=== PATIENT | male | born 1940 | race Caucasian/White ===

== ENCOUNTER → 2020-03-23 09:11 | Outpatient (BNVA) | payer OTHER, SELFPAY | PROVIDERS: PCP Physician Assistant; Visit Provider Family Medicine Adult Medicine | DX: M54.16 Radiculopathy, lumbar region (principal); Z79.891 Long term (current) use of opiate analgesic | CPT/HCPCS: 99212 ==

== ENCOUNTER → 2020-04-22 11:53 | Outpatient (BNVA) | payer OTHER, SELFPAY | PROVIDERS: Visit Provider Family Medicine Adult Medicine | DX: M54.16 Radiculopathy, lumbar region (principal) | CPT/HCPCS: Q3014 ==

== ENCOUNTER → 2020-04-27 10:35 | Outpatient (BNVA) | payer OTHER, SELFPAY | PROVIDERS: Visit Provider Family Medicine Adult Medicine | DX: M54.16 Radiculopathy, lumbar region (principal) | CPT/HCPCS: 99212 ==

== ENCOUNTER 2020-05-24 11:18 | Outpatient (REF) | payer OTHER, SELFPAY ==
[2020-05-24 11:53] LABS: Hemoglobin 12.7 g/dl (14.0-18.0); Mean Platelet Volume 10.9 fL (9.4-12.4); PLT CLUMP 1; Red Cell Distribution Width 12.3 % (11.0-16.0)
[2020-05-24 11:55] LABS: Hematocrit 40.4 % (42-52); Mean Corpuscular HGB Conc 31.4 g/dl (31.0-36.0); Mean Corpuscular Hemoglobin 29.3 pg (27.0-33.0); Mean Corpuscular Volume 93.3 fL (80-98); Platelet Count 105 X10*3/uL (160-400); Red Blood Count 4.33 X10*6/uL (4.60-5.80); White Blood Count 5.5 X10*3/uL (4.8-10.8)
[2020-05-24 12:11] LABS: Alanine Aminotransferase 28 U/L (0-40); Alkaline Phosphatase 70 U/L (39-117); Anion Gap 13 (12-20); Aspartate Amino Transferase 44 U/L (5-37); Bilirubin Total 0.8 mg/dL (0.0-1.0); Blood Urea Nitrogen 17 mg/dL (9-16); Calcium 9.2 mg/dL (8.4-10.2); Carbon Dioxide 30 mmol/L (22-29); Chloride 99 mmol/L (96-108); Cholesterol 145 mg/dL; Estimated Glomerular Filt Rate > 60; Glucose Fasting 222 mg/dL (60-99); HDL Cholesterol 51 mg/dL; LDL Cholesterol Calculated 50 mg/dl; Potassium 4.9 mmol/l (3.3-5.1); Sodium 137 mmol/L (135-145); Total Protein 7.5 g/dL (6.5-8.0); Triglycerides 224 mg/dL
[2020-05-24 12:33] LABS: Prostate Specific Antigen Scr 0.34 ng/mL (<0.05-4.0); TSH reflex Free T4 0.76 mIU/mL (0.32-4.0)
[2020-05-24 14:09] LABS: Creatinine Urine 53.89 mg/dL; Microalbum/Creatinine Ratio Ur 24.1 ug/mg cr
== END 2020-05-24 11:19 | disposition home or self-care (01) ==
LOC: HO.LAB 11:18
PROVIDERS: PCP Physician Assistant; Visit Provider Physician Assistant
DX: I10 Essential (primary) hypertension (principal); E11.9 Type 2 diabetes mellitus without complications; Z12.5 Encounter for screening for malignant neoplasm of prostate
CPT/HCPCS: 36415; 80053; 80061; 82043; 84153; 84443; 85027

== ENCOUNTER → 2020-06-10 10:09 | Outpatient (BNVA) | payer OTHER, SELFPAY | PROVIDERS: Visit Provider Family Medicine Adult Medicine | DX: M54.16 Radiculopathy, lumbar region (principal); Z79.891 Long term (current) use of opiate analgesic | CPT/HCPCS: 99211 ==

== ENCOUNTER → 2020-07-08 10:11 | Outpatient (BNVA) | payer OTHER, SELFPAY | PROVIDERS: Visit Provider Family Medicine Adult Medicine | DX: M54.16 Radiculopathy, lumbar region (principal); Z79.899 Other long term (current) drug therapy | CPT/HCPCS: 99212 ==

== ENCOUNTER → 2020-08-05 09:35 | Outpatient (BNVA) | payer OTHER, SELFPAY | PROVIDERS: PCP Physician Assistant; Visit Provider Family Medicine Adult Medicine | DX: M54.16 Radiculopathy, lumbar region (principal) | CPT/HCPCS: Q3014 ==

== ENCOUNTER 2020-09-09 09:43 | Outpatient (REF) | payer OTHER, SELFPAY | END 2020-09-09 09:44 | disposition home or self-care (01) | LOC: HO.LAB 09:43 | PROVIDERS: PCP Physician Assistant; Visit Provider Family Medicine Adult Medicine | DX: M54.16 Radiculopathy, lumbar region (principal) | CPT/HCPCS: Q3014 ==

== ENCOUNTER 2020-09-21 10:57 | Outpatient (REF) | payer MEDICARE, SELFPAY ==
[2020-09-21 12:18] LABS: Hematocrit 40.8 % (42-52); Mean Corpuscular HGB Conc 31.9 g/dl (31.0-36.0); Mean Corpuscular Hemoglobin 29.5 pg (27.0-33.0); Mean Corpuscular Volume 92.5 fL (80-98); Mean Platelet Volume 11.1 fL (9.4-12.4); Platelet Count 90 X10*3/uL (160-400); Red Blood Count 4.41 X10*6/uL (4.60-5.80); Red Cell Distribution Width 12.4 % (11.0-16.0); White Blood Count 5.2 X10*3/uL (4.8-10.8)
[2020-09-21 12:37] LABS: Alanine Aminotransferase 27 U/L (0-40); Alkaline Phosphatase 72 U/L (39-117); Anion Gap 13 (12-20); Aspartate Amino Transferase 39 U/L (5-37); Bilirubin Total 0.9 mg/dL (0.0-1.0); Blood Urea Nitrogen 26 mg/dL (9-16); Calcium 9.3 mg/dL (8.4-10.2); Carbon Dioxide 29 mmol/L (22-29); Chloride 99 mmol/L (96-108); Cholesterol 173 mg/dL; Estimated Glomerular Filt Rate > 60; Glucose Fasting 268 mg/dL (60-99); HDL Cholesterol 43 mg/dL; LDL Cholesterol Calculated 58 mg/dl; Potassium 4.3 mmol/L (3.3-5.1); Sodium 137 mmol/L (135-145); Total Protein 7.5 g/dL (6.5-8.0); Triglycerides 363 mg/dL
[2020-09-21 12:58] LABS: Prostate Specific Antigen Scr 0.46 ng/mL (<0.05-4.0); TSH reflex Free T4 0.56 uIU/mL (0.32-4.0)
[2020-09-21 13:12] LABS: Creatinine Urine 44.32 mg/dL
== END 2020-09-21 10:58 | disposition home or self-care (01) ==
LOC: HO.LAB 10:57
PROVIDERS: PCP Physician Assistant; Visit Provider Physician Assistant
DX: Z12.5 Encounter for screening for malignant neoplasm of prostate (principal); I10 Essential (primary) hypertension
CPT/HCPCS: 36415; 80053; 80061; 82043; 84153; 84443; 85027

== ENCOUNTER → 2020-10-08 10:46 | Outpatient (BNVA) | payer MEDICARE, SELFPAY | PROVIDERS: PCP Physician Assistant; Visit Provider Nurse Practitioner Family | DX: M19.012 Primary osteoarthritis, left shoulder (principal); M17.0 Bilateral primary osteoarthritis of knee; M54.41 Lumbago with sciatica, right side; G89.29 Other chronic pain | CPT/HCPCS: Q3014 ==

== ENCOUNTER 2020-10-12 08:41 | Outpatient (REF) | payer MEDICARE, SELFPAY ==
--- NOTE | ~2020-10-12 | XR_ITS ---
EXAMINATION: XR SHOULDER, LEFT CLINICAL INFORMATION: Left shoulder pain. COMPARISON: None TECHNIQUE: AP, scapular Y, and axillary views of the left shoulder. FINDINGS: No acute fracture or dislocation. Acromioclavicular joint space narrowing and marginal osteophytes. Mild glenohumeral joint space narrowing with marginal osteophytes. No osseous erosion. No abnormal soft tissue calcification. 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
== END 2020-10-12 08:42 | disposition home or self-care (01) ==
LOC: HO.HOSX 08:41
PROVIDERS: Visit Provider Orthopaedic Surgery
DX: M75.42 Impingement syndrome of left shoulder (principal)
CPT/HCPCS: 20610; 73030; 99202; J1040

== ENCOUNTER → 2020-11-02 13:35 | Outpatient (BNVA) | payer MEDICARE, SELFPAY | PROVIDERS: PCP Physician Assistant; Visit Provider Family Medicine Adult Medicine | DX: M54.16 Radiculopathy, lumbar region (principal) | CPT/HCPCS: 99212 ==

== ENCOUNTER 2020-11-23 11:04 | Outpatient (REF) | payer MEDICARE, SELFPAY ==
--- NOTE | ~2020-11-23 | XR_ITS ---
EXAMINATION: LUMBAR SPINE, BILATERAL KNEE. CLINICAL INFORMATION: Pain. COMPARISON: None TECHNIQUE: Lumbar spine 5 views. 4 views each knee. FINDINGS: Lumbar spine: There is normal lumbar lordosis. The vertebral heights, alignment and disc heights are normal. No visible acute fracture, dislocation or lytic process seen. There is no pars defect either. There is mild right L3-for L4/L5 facet arthropathy. The soft tissues are normal. Right knee: The tricompartment joint space is maintained normal. No visible acute fracture, dislocation or dislocation seen. No abnormal joint effusion. The soft tissues are normal. Left knee: The tricompartment joint space is normal. No visible acute fracture, dislocation or subluxation seen. No bony erosive changes. No abnormal joint effusion. XR/XR lumbar spine 4V min IMPRESSION: Mild right L3-L4 and L4/L5 facet joint arthropathy. No visible acute fracture, dislocation or lytic process. No pars defect. Unremarkable bilateral knee exam.
--- NOTE | ~2020-11-23 | XR_ITS ---
EXAMINATION: LUMBAR SPINE, BILATERAL KNEE. CLINICAL INFORMATION: Pain. COMPARISON: None TECHNIQUE: Lumbar spine 5 views. 4 views each knee. FINDINGS: Lumbar spine: There is normal lumbar lordosis. The vertebral heights, alignment and disc heights are normal. No visible acute fracture, dislocation or lytic process seen. There is no pars defect either. There is mild right L3-for L4/L5 facet arthropathy. The soft tissues are normal. Right knee: The tricompartment joint space is maintained normal. No visible acute fracture, dislocation or dislocation seen. No abnormal joint effusion. The soft tissues are normal. Left knee: The tricompartment joint space is normal. No visible acute fracture, dislocation or subluxation seen. No bony erosive changes. No abnormal joint effusion. XR/XR knee RT 4V IMPRESSION: Mild right L3-L4 and L4/L5 facet joint arthropathy. No visible acute fracture, dislocation or lytic process. No pars defect. Unremarkable bilateral knee exam.
--- NOTE | ~2020-11-23 | XR_ITS ---
EXAMINATION: LUMBAR SPINE, BILATERAL KNEE. CLINICAL INFORMATION: Pain. COMPARISON: None TECHNIQUE: Lumbar spine 5 views. 4 views each knee. FINDINGS: Lumbar spine: There is normal lumbar lordosis. The vertebral heights, alignment and disc heights are normal. No visible acute fracture, dislocation or lytic process seen. There is no pars defect either. There is mild right L3-for L4/L5 facet arthropathy. The soft tissues are normal. Right knee: The tricompartment joint space is maintained normal. No visible acute fracture, dislocation or dislocation seen. No abnormal joint effusion. The soft tissues are normal. Left knee: The tricompartment joint space is normal. No visible acute fracture, dislocation or subluxation seen. No bony erosive changes. No abnormal joint effusion. XR/XR knee LT 4V IMPRESSION: Mild right L3-L4 and L4/L5 facet joint arthropathy. No visible acute fracture, dislocation or lytic process. No pars defect. Unremarkable bilateral knee exam.
== END 2020-11-23 11:05 | disposition home or self-care (01) ==
LOC: HO.XRAY 11:04
PROVIDERS: PCP Physician Assistant; Visit Provider Family Medicine Adult Medicine
DX: M54.16 Radiculopathy, lumbar region (principal); M17.0 Bilateral primary osteoarthritis of knee
CPT/HCPCS: 72110; 73564

== ENCOUNTER → 2020-12-02 10:31 | Outpatient (BNVA) | payer MEDICARE, SELFPAY | PROVIDERS: PCP Physician Assistant; Visit Provider Family Medicine Adult Medicine | DX: M54.16 Radiculopathy, lumbar region (principal) | CPT/HCPCS: Q3014 ==

== ENCOUNTER → 2021-01-07 10:21 | Outpatient (BNVA) | payer MEDICARE, SELFPAY | PROVIDERS: PCP Physician Assistant; Visit Provider Nurse Practitioner Family | DX: M17.0 Bilateral primary osteoarthritis of knee (principal); M19.012 Primary osteoarthritis, left shoulder; M54.41 Lumbago with sciatica, right side; G89.29 Other chronic pain | CPT/HCPCS: 99212 ==

== ENCOUNTER → 2021-01-27 12:57 | Outpatient (BNVA) | payer MEDICARE, SELFPAY | PROVIDERS: PCP Physician Assistant; Visit Provider Family Medicine Adult Medicine | DX: Z51.81 Encounter for therapeutic drug level monitoring (principal); M17.0 Bilateral primary osteoarthritis of knee; M54.16 Radiculopathy, lumbar region | CPT/HCPCS: 99212 ==

== ENCOUNTER 2021-02-02 06:06 | Outpatient (REF) | payer MEDICARE, SELFPAY | END 2021-02-02 06:07 | disposition home or self-care (01) | LOC: HO.RADIR 06:06 | PROVIDERS: Visit Provider Internal Medicine | DX: Z13.89 Encounter for screening for other disorder (principal) ==

== ENCOUNTER → 2021-02-22 10:37 | Outpatient (BNVA) | payer MEDICARE, SELFPAY | PROVIDERS: Visit Provider Family Medicine Adult Medicine | DX: Z51.81 Encounter for therapeutic drug level monitoring (principal); M54.16 Radiculopathy, lumbar region; M17.0 Bilateral primary osteoarthritis of knee | CPT/HCPCS: 99212 ==

== ENCOUNTER → 2021-03-22 10:35 | Outpatient (BNVA) | payer MEDICARE, SELFPAY | PROVIDERS: Visit Provider Family Medicine Adult Medicine | DX: M54.16 Radiculopathy, lumbar region (principal); M17.0 Bilateral primary osteoarthritis of knee; E11.9 Type 2 diabetes mellitus without complications; I10 Essential (primary) hypertension; E66.01 Morbid (severe) obesity due to excess calories; Z88.7 Allergy status to serum and vaccine; Z88.8 Allergy status to other drugs, medicaments and biological substances; Z79.4 Long term (current) use of insulin; Z79.84 Long term (current) use of oral hypoglycemic drugs; Z79.899 Other long term (current) drug therapy | CPT/HCPCS: 99212 ==

== ENCOUNTER 2021-04-18 07:52 | Outpatient (RCR) | payer MEDICARE, SELFPAY | END 2021-05-24 15:00 | disposition home or self-care (01) | LOC: HO.WCC 07:52 | PROVIDERS: PCP Physician Assistant; Visit Provider Physician Assistant | DX: T25.221A Burn of second degree of right foot, initial encounter (principal); T31.0 Burns involving less than 10% of body surface; E11.9 Type 2 diabetes mellitus without complications; I10 Essential (primary) hypertension; L53.9 Erythematous condition, unspecified; Z87.891 Personal history of nicotine dependence | CPT/HCPCS: 11042; 16020; 99213; 99214 ==

== ENCOUNTER → 2021-04-25 10:34 | Outpatient (BNVA) | payer MEDICARE, SELFPAY | PROVIDERS: PCP Physician Assistant; Visit Provider Nurse Practitioner Family | DX: Z51.81 Encounter for therapeutic drug level monitoring (principal); F11.20 Opioid dependence, uncomplicated; M17.0 Bilateral primary osteoarthritis of knee; M19.012 Primary osteoarthritis, left shoulder; M54.16 Radiculopathy, lumbar region | CPT/HCPCS: 99212 ==

== ENCOUNTER → 2021-05-12 11:10 | Outpatient (REF) | payer MEDICARE, SELFPAY ==
--- NOTE | 2021-05-12 11:19 | ECG_ITS ---
Test Reason : F11.90 Blood Pressure : / mmHG Vent. 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
== END ==
LOC: HO.CARD 11:10
PROVIDERS: PCP Physician Assistant; Visit Provider Nurse Practitioner Family
DX: F11.90 Opioid use, unspecified, uncomplicated (principal)
CPT/HCPCS: 93005

== ENCOUNTER 2021-05-24 15:43 | Inpatient (IN) | payer MEDICARE, SELFPAY ==
--- NOTE | ~2021-05-24 | XR_ITS ---
EXAMINATION: 1. CHEST X-RAY 2. X-RAYS THORACIC SPINE CLINICAL INFORMATION: Hypoxic. Covid. Thoracic pain after fall. COMPARISON: Chest x-ray 05/30/2019 TECHNIQUE: Frontal view of the chest and frontal view of the thoracic spine were obtained. FINDINGS: The cardiac silhouette is enlarged. Atherosclerotic disease of the aortic arch. Hypoinflated lungs. Patchy bilateral airspace disease, particularly within the lower lobes. No gross lobar consolidation identified. No large pleural effusion. No pneumothorax. Old healed left posterior rib fractures. AP view of the thoracic spine demonstrates mild dextroscoliosis centered at T8. Thoracic vertebral body heights are maintained. Disc spaces appear well-maintained on frontal imaging. Small osteophytes are noted throughout the mid and lower thoracic spine. XR/XR thoracic spine 1V IMPRESSION: -Patchy bilateral airspace disease, most consistent with provided history of Covid pneumonia. -Mild degenerative changes of the thoracic spine without gross compression deformity.
--- NOTE | ~2021-05-24 | XR_ITS ---
EXAMINATION: XR CHEST CLINICAL INFORMATION: SOB COMPARISON: Chest 05/24/2021 TECHNIQUE: Frontal view of the chest was obtained. FINDINGS: The lungs are hypoexpanded bilateral patchy opacities in both lower lobes likely infiltrate or atelectasis. Upper lungs are clear. The heart size is mildly enlarged. The pulmonary vascularity is normal. No gross bony abnormality seen. XR/XR chest 1V IMPRESSION: Bibasilar patchy opacities in both lungs without infiltrate or atelectasis.
--- NOTE | ~2021-05-24 | XR_ITS ---
EXAMINATION: XR CHEST CLINICAL INFORMATION: Reassess Covid pneumonia COMPARISON: Multiple previous chest imaging studies with the chest x-ray of 06/09/2021. Chest CT of 05/24/2021 TECHNIQUE: Frontal view of the chest was obtained. FINDINGS: Compared to previous x-ray of 06/09/2021 there does appear to be mild interval improvement in the hazy groundglass and patchy airspace opacities in the bilateral mid and lower lung zones. No definite new airspace opacities are noted. No evidence of pneumothorax or changes of overt pulmonary edema. No significant pleural effusions. Cardiomediastinal silhouette is unchanged. Aortic arch calcifications. No acute osseous abnormality. XR/XR chest 1V IMPRESSION: Mild interval improvement in the groundglass and patchy airspace opacities in the bilateral lungs compared to previous study of 06/09/2021 with persistent changes. There appears to be greater improvement when compared to previous x-ray of 05/24/2021. No definite new airspace opacities.
--- NOTE | ~2021-05-24 | XR_ITS ---
EXAMINATION: XR CHEST CLINICAL INFORMATION: Hypoxia COMPARISON: Previous chest x-ray most recent 06/11/2021 TECHNIQUE: Frontal view of the chest was obtained. FINDINGS: The cardiac and mediastinal contours are stable. There is bilateral perihilar and lower lobe airspace disease. This appears slightly increased on the left compared to 06/11/2021 exam. Differential would include pulmonary edema and pneumonia. There is no significant pleural effusion. There is a new lucency projecting over the lateral right upper lung measuring maximum 6 mm in transverse dimension. This may represent a skinfold. Follow-up end expiration chest x-ray to exclude pneumothorax should be considered if clinically indicated. There are old left rib fractures. There are degenerative changes of the spine. XR/XR chest 1V IMPRESSION: Perihilar and bibasilar airspace disease, slightly increased on the left compared to most recent exam. Differential would include pulmonary edema and pneumonia. Peripheral lucency in the right upper lobe probably representing a skinfold. Follow-up end expiration chest x-ray to exclude pneumothorax should be considered if clinically indicated. Findings will be communicated by the [place] work flow flap lining binder Melyssa Cortez.
--- NOTE | ~2021-05-24 | XR_ITS ---
EXAMINATION: 1. CHEST X-RAY 2. X-RAYS THORACIC SPINE CLINICAL INFORMATION: Hypoxic. Covid. Thoracic pain after fall. COMPARISON: Chest x-ray 05/30/2019 TECHNIQUE: Frontal view of the chest and frontal view of the thoracic spine were obtained. FINDINGS: The cardiac silhouette is enlarged. Atherosclerotic disease of the aortic arch. Hypoinflated lungs. Patchy bilateral airspace disease, particularly within the lower lobes. No gross lobar consolidation identified. No large pleural effusion. No pneumothorax. Old healed left posterior rib fractures. AP view of the thoracic spine demonstrates mild dextroscoliosis centered at T8. Thoracic vertebral body heights are maintained. Disc spaces appear well-maintained on frontal imaging. Small osteophytes are noted throughout the mid and lower thoracic spine. XR/XR chest 1V IMPRESSION: -Patchy bilateral airspace disease, most consistent with provided history of Covid pneumonia. -Mild degenerative changes of the thoracic spine without gross compression deformity.
--- NOTE | ~2021-05-24 | CT_ITS ---
EXAMINATION: CT ANGIOGRAM OF THE CHEST WITH AND WITHOUT CONTRAST (CT PULMONARY ANGIOGRAM FOR PE) CLINICAL INFORMATION: Covid positive. Rule out PE. COMPARISON: Chest x-ray earlier this evening TECHNIQUE: Prior to contrast administration, noncontrast localization images were obtained. Subsequently, multidetector volumetric imaging was performed from the thoracic inlet to below the diaphragms following the administration of 69 mL Omnipaque 350 intravenous contrast. No contrast reaction reported Sagittal, coronal, and MIP oblique sagittal reformatted images were obtained on the CT workstation, uploaded to PACS, and reviewed. This CT examination was performed using dose optimization techniques as appropriate, variously including the following: *Automated exposure control *Adjustment of mA and/or kV according to patient size (this includes techniques or standardized protocols for targeted exams where dose is matched to indication/reason for exam; i.e. extremities or head) *Use of iterative reconstruction technique Total exam dose-length product 423 mGy-cm FINDINGS: The heart is enlarged. Coronary artery calcifications are present. There is no pericardial effusion. No main or segmental pulmonary emboli. Evaluation of subsegmental pulmonary arteries is suboptimal given background of airspace disease, however, no gross subsegmental pulmonary emboli appreciated. Normal caliber thoracic aorta. No gross mediastinal lymphadenopathy. No enlarged axillary lymph nodes. Central airways are patent although some mild peripheral mucous plugging is noted. Extensive bilateral predominantly pleural-based groundglass opacities are noted diffusely throughout both lungs. I do not appreciate any gross lobar consolidation. No pleural effusion or pneumothorax identified. Evaluation for pulmonary nodules is suboptimal given background of airspace disease, however, no gross large pulmonary mass is identified. Visualized portion of the upper abdomen demonstrate a cirrhotic liver appearance. Mild to moderate diffuse degenerative changes of the spine. Subacute and old left-sided rib fracture, some of which are incompletely healed. CT/CT angio chest PE protocol IMPRESSION: 1. No pulmonary embolism. 2. Extensive bilateral airspace disease consistent with Covid pneumonia. 3. Cirrhotic appearance of the liver VTE: negative
--- NOTE | ~2021-05-24 | XR_ITS ---
EXAMINATION: XR CHEST CLINICAL INFORMATION: Rule out pneumothorax COMPARISON: Previous chest x-rays, most recent from earlier the same day TECHNIQUE: Frontal view of the chest was obtained. FINDINGS: The cardiac and mediastinal contours are stable. The lung volumes are low. There is bilateral diffuse airspace disease not appreciably changed. This is greatest at the left lung base. There is no pleural effusion or pneumothorax. There are old left-sided rib fractures. There are degenerative changes of the spine. XR/XR chest 1V IMPRESSION: Low lung volumes and bilateral diffuse airspace disease. No pneumothorax seen.
--- NOTE | ~2021-05-24 | XR_ITS ---
EXAMINATION: XR CHEST CLINICAL INFORMATION: 80-year-old male with shortness of breath. COMPARISON: Chest x-ray 06/05/2021 and CTA chest 05/24/2021 TECHNIQUE: Frontal view of the chest was obtained. FINDINGS: Cardiac silhouette is unchanged. Atherosclerotic disease of the aortic arch. The lungs are adequately aerated. Patchy bilateral airspace disease appears stable in prominence from imaging 5 days ago. No gross lobar consolidation identified. No pleural effusion. Old healed rib fractures. XR/XR chest 1V IMPRESSION: Stable patchy bilateral airspace disease consistent with history of Covid pneumonia.
[2021-05-24 15:58] VITALS: BP 107/55; PULSE 57; RESP 17; TEMP 36.5; O2SAT 87; BMI 28.3
--- NOTE | 2021-05-24 16:02 | ECG_ITS ---
Test Reason : SHORTNESS OF BREATH Blood Pressure : / mmHG Vent. 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
--- NOTE | 2021-05-24 16:08 | ED.SOB ---
HPI - SOB/Dyspnea General Chief Complaint: Dyspnea Stated Complaint: SOB/COVID Time Seen by Provider: 05/24/21 15:53 Source: patient and EMS Mode of arrival: EMS Limitations: no limitations History of Present Illness HPI Narrative: Patient comes to the emergency room complaining of shortness of breath. Patient reports that he tested positive for COVID-19 2 weeks ago. However, over the last few days, the shortness of breath has gradually become worse. Patient also states that since the morning, he has had 4 falls. Patient is poor historian, does not know if he passed out, does not know if they were mechanical falls. Patient states that he did not lose consciousness, did not hit his head, denies being on blood thinners. He states that he did not receive any of the COVID vaccines. Per EMS, when they arrived to the patient's residence, the patient's oxygen saturation was in the mid 60s on room air. Patient was put on non-rebreather at 15 L. patient denies chest pain, only complaining of shortness of breath. Patient states that he has mild thoracic spine pain from the falls. According to EMS, the home nurse reported that the patient recently finished taking a course of azithromycin. Related Data Home Medications Medication Instructions Recorded Confirmed cholecalciferol (vitamin D3) 25 25 mcg PO DAILY 05/24/21 05/24/21 mcg (1,000 unit) tablet (Vitamin D3) gabapentin 300 mg capsule 300 mg PO TID 05/24/21 05/24/21 hydrocodone 10 mg-acetaminophen 1 tab PO QID PRN 05/24/21 05/24/21 325 mg tablet metformin 1,000 mg tablet 1,000 mg PO BIDWM 05/24/21 05/24/21 silver sulfadiazine 1 % topical 1 appl TOPICAL TID 05/24/21 05/24/21 cream Previous Rx's Medication Instructions Recorded multivitamin 1 tab PO DAILY 90 Days #90 tab 09/01/20 pen needle, diabetic 32 gauge x #100 ea 11/22/20 (BD Agueda 2nd Gen Pen Needle) tamsulosin 0.4 mg capsule 0.4 mg PO DAILY 90 Days #90 cap 12/07/20 hydrochlorothiazide 25 mg tablet 25 mg PO DAILY #90 tab 01/13/21 blood sugar diagnostic (Yaritzayle #100 ea 01/24/21 Test) fluoxetine 20 mg capsule 20 mg PO QAM #90 cap 03/01/21 clonazepam 1 mg tablet 1 mg PO BID 30 Days #60 tab 03/08/21 metoprolol succinate 25 mg 25 mg PO DAILY 90 Days #90 tab 03/21/21 tablet,extended release 24 hr clonidine HCl 0.1 mg tablet 0.1 mg PO BID 30 Days #60 tab 04/04/21 losartan 100 mg tablet 100 mg PO DAILY #90 tab 04/14/21 pravastatin 40 mg tablet 40 mg PO DAILY #90 tab 04/18/21 tizanidine 2 mg tablet 2 mg PO BID PRN 90 Days #180 tab 04/18/21 buprenorphine 15 mcg/hour weekly 1 patch TRANSDERMAL Q7D 28 Days #4 04/25/21 transdermal patch (Butrans) ea insulin degludec 200 unit/mL (3 35 unit (0.175 mL) SUBCUT DAILY 30 04/25/21 mL) subcutaneous pen ( Days #9 ml FlexTouch U-200 insulin) empagliflozin 25 mg tablet 25 mg PO DAILY #90 tab 04/26/21 (Jardiance) prednisone 10 mg tablet 10 mg PO DAILY 6 Days #12 tab 05/19/21 dexamethasone 2 mg tablet 2 mg PO DAILY 7 Days #7 tab 05/24/21 Allergies Allergy/AdvReac Type Severity Reaction Status Date / Time canagliflozin [From [facility]] Allergy Unknown RASH Verified 04/25/21 14:28 zoster vaccine live Allergy Unknown pruritis Verified 04/25/21 14:28 [Zostavax (PF)] Review of Systems Review of Systems: Constitutional : No Weight loss, No Fever, No Chills, No Night Sweats, No Fatigue, No Malaise ENT/Mouth : No Hearing loss, No Ear Pain, No Nasal Congestion, No Sinus Pain, No Hoarseness, No sore throat, No Rhinorrhea, No Swallowing Difficulty Eyes: No Eye Pain, No Swelling, No Redness, No Foreign Body, No Discharge, No Vision Changes Cardiovascular : No Chest Pain, No SOB, No Dyspnea on Exertion, No Orthopnea, No Edema, No Palpitations Respiratory : Complaining of cough, shortness of breath Gastrointestinal : No Nausea, No Vomiting, No Diarrhea, No Constipation, No abdominal Pain, No Hematochezia, No Melena Genitourinary : no irregular bleeding, No Dysuria, No Urinary Frequency, No Hematuria, No Urinary Incontinence, No Urgency, No Flank Pain, No Urinary Flow Changes, No Hesitancy Musculoskeletal : Complaining of back pain in the thoracic area, complaining of chronic lower extremity pain Skin : No Skin Lesions, No rash Neuro : No Weakness, No Numbness, No Paresthesias, complaining of a fall, unclear if patient had loss of consciousness, no headache Psych : No Anxiety/Panic, No Depression, No SI/HI/AH/VH, No Social Issues, Heme/Lymph: No Bruising, No Bleeding,No Lymphadenopathy Endocrine : No Polyuria, No Polydipsia, No Temperature Intolerance [facility] Past Medical History Medical History Arthritis of left knee Arthritis of right knee HTN (hypertension) Right lumbar radiculopathy Surgical History History of inguinal hernia repair Family History Family History Mother Hypertension Father No problems noted. Family/Other Diabetes Sister Alzheimers disease Brother Liver disease Brother Alcohol abuse Social History Social History (Updated 10/12/20 @ 10:08 by CARRIE Cohen) Alcohol intake: never Patient Tobacco Use Status: Never used Tobacco Advance Directives: No Advance Directives Information Provided: No Current occupational status: retired and disabled Current occupation: rt handed Physical Exam Vital Signs: Vital Signs: Last Vital Signs Temp 97.9 F 05/24/21 21:12 Pulse 56 05/24/21 21:12 Resp 14 05/24/21 21:12 BP 134/77 05/24/21 21:12 Pulse Ox 93 05/24/21 21:12 BMI result Body Mass Index 28.3 Const: Other: Appearance: Alert. Oriented X3. No acute distress. Eyes: Pupils equal, round and reactive to light. ENT: Pharynx normal. Neck: Normal inspection. Neck supple. No lymph nodes noted. No crepitus CVS: Normal heart rate and rhythm. Pulses normal. Normal S1 and S2 Respiratory: Patient is and a non-rebreather, bibasilar crackles Abdomen: Soft and nontender. No rigidity. No distention. Skin: Skin warm and dry. Normal skin color. Normal skin turgor. Extremities: No lower extremity edema. No Lacerations. No Rash Neuro: Oriented X 3. No motor deficit. No sensory deficit. Moving all extermities. No slurred speech. Course Course Course Narrative: Patient's oxygen saturation is barely 90-91% on 15 L. patient received 1 L of IV fluids, 1 dose of IV dexamethasone. No antibiotics yet. All of the labs and imaging pending. As respiratory therapy to start the patient on high-flow CT scan for PE study does not show a pulmonary embolism. Lactic acid within normal limits. At this time, sepsis is not suspected Patient remains stable on high-flow. Oxygen saturation 92% I discussed the patient with Dr. Muhammad, patient being admitted MDM - SOB/Dyspnea Lab Data Result diagrams: 05/24/21 16:42 05/24/21 16:42 Labs: Lab Results 05/24/21 05/24/21 05/24/21 Range/Units 16:42 16:42 16:42 WBC 5.4 (4.8-10.8) X10*3/uL RBC 4.16 L (4.60-5.80) X10*6/uL Hgb 12.2 L (14.0-18.0) g/dl Hct 38.6 L (42.0-52.0) % MCV 92.8 (80.0-98.0) fL MCH 29.3 (27.0-33.0) pg MCHC 31.6 (31.0-36.0) g/dl RDW 12.7 (11.0-16.0) % Plt Count 69 L (160-400) X10*3/uL MPV 12.1 (9.4-12.4) fL Immature Gran % (Auto) 0.4 (0.0-0.4) % Neut % (Auto) 80.1 H (45-73) % Lymph % (Auto) 13.4 L (20-40) % Roosevelt % (Auto) 6.1 (2-11) % Eos % (Auto) 0.0 (0-4) % Baso % (Auto) 0.0 (0-2) % Lymph # (Auto) 0.7 L (1.2-4.9) X10*3/uL Roosevelt # (Auto) 0.3 (0.1-1.2) X10*3/uL Eos # (Auto) 0.0 (0.0-0.4) X10*3/uL Baso # (Auto) 0.0 (0.0-0.2) X10*3/uL Abs Immat Gran (auto) 0.02 (0.00-0.03) X10*3/uL Absolute Neuts (auto) 4.3 (2.0-8.3) x10*3/uL Absolute Nucleated RBC 0.000 (0.0-0.012) X10*3/uL Nucleated RBC % (auto) 0.0 (0.0-0.2) /100WBC D-Dimer High Sensitivty NG/ML Sodium 139 (135-145) mmol/L Potassium 4.4 (3.3-5.1) mmol/L Chloride 102 (96-108) mmol/L Carbon Dioxide 28 (22-29) mmol/L Anion Gap 13 (12-20) BUN 52 H (9-16) mg/dL Creatinine 1.27 (0.5-1.4) mg/dL Estim Creat Clear Calc 51.5 Estimated GFR 55 Random Glucose 264 H (60-115) mg/dL Lactic Acid 1.7 (0.5-2.0) mmol/L Calcium 8.5 D (8.4-10.2) mg/dL Total Bilirubin 2.0 H (0.0-1.0) mg/dL Direct Bilirubin 1.1 H (0.0-0.5) mg/dL AST 72 H (5-37) U/L ALT 40 (0-40) U/L Alkaline Phosphatase 58 (39-117) U/L Troponin I High Sens (<3.5-35.0) ng/L B-Natriuretic Peptide (<100) pg/mL Total Protein 7.0 (6.5-8.0) g/dL Albumin 3.2 L (3.5-5.0) g/dL COVID-19 (RONNIE) (Negative) COVID-19 Clin Com 05/24/21 05/24/21 05/24/21 Range/Units 16:42 16:42 16:42 WBC (4.8-10.8) X10*3/uL RBC (4.60-5.80) X10*6/uL Hgb (14.0-18.0) g/dl Hct (42.0-52.0) % MCV (80.0-98.0) fL MCH (27.0-33.0) pg MCHC (31.0-36.0) g/dl RDW (11.0-16.0) % Plt Count (160-400) X10*3/uL MPV (9.4-12.4) fL Immature Gran % (Auto) (0.0-0.4) % Neut % (Auto) (45-73) % Lymph % (Auto) (20-40) % Roosevelt % (Auto) (2-11) % Eos % (Auto) (0-4) % Baso % (Auto) (0-2) % Lymph # (Auto) (1.2-4.9) X10*3/uL Roosevelt # (Auto) (0.1-1.2) X10*3/uL Eos # (Auto) (0.0-0.4) X10*3/uL Baso # (Auto) (0.0-0.2) X10*3/uL Abs Immat Gran (auto) (0.00-0.03) X10*3/uL Absolute Neuts (auto) (2.0-8.3) x10*3/uL Absolute Nucleated RBC (0.0-0.012) X10*3/uL Nucleated RBC % (auto) (0.0-0.2) /100WBC D-Dimer High Sensitivty 381 NG/ML Sodium (135-145) mmol/L Potassium (3.3-5.1) mmol/L Chloride (96-108) mmol/L Carbon Dioxide (22-29) mmol/L Anion Gap (12-20) BUN (9-16) mg/dL Creatinine (0.5-1.4) mg/dL Estim Creat Clear Calc Estimated GFR Random Glucose (60-115) mg/dL Lactic Acid (0.5-2.0) mmol/L Calcium (8.4-10.2) mg/dL Total Bilirubin (0.0-1.0) mg/dL Direct Bilirubin (0.0-0.5) mg/dL AST (5-37) U/L ALT (0-40) U/L Alkaline Phosphatase (39-117) U/L Troponin I High Sens 19.8 (<3.5-35.0) ng/L B-Natriuretic Peptide 74 (<100) pg/mL Total Protein (6.5-8.0) g/dL Albumin (3.5-5.0) g/dL COVID-19 (RONNIE) Positive A (Negative) COVID-19 Clin Com See Note Imaging Data CTA for PE: Radiologist's impression: FINDINGS: The heart is enlarged.? Coronary artery calcifications are present. There is no pericardial effusion. No main or segmental pulmonary emboli. Evaluation of subsegmental pulmonary arteries is suboptimal given background of airspace disease, however, no gross subsegmental pulmonary emboli appreciated. Normal caliber thoracic aorta. No gross mediastinal lymphadenopathy. No enlarged axillary lymph nodes. Central airways are patent although some mild peripheral mucous plugging is noted. Extensive bilateral predominantly pleural-based groundglass opacities are noted diffusely throughout both lungs. I do not appreciate any gross lobar consolidation. No pleural effusion or pneumothorax identified. Evaluation for pulmonary nodules is suboptimal given background of airspace disease, however, no gross large pulmonary mass is identified. Visualized portion of the upper abdomen demonstrate a cirrhotic liver appearance. Mild to moderate diffuse degenerative changes of the spine. Subacute and old left-sided rib fracture, some of which are incompletely healed. CT/CT angio chest PE protocol IMPRESSION: 1.? No pulmonary embolism. 2.? Extensive bilateral airspace disease consistent with Covid pneumonia. 3.? Cirrhotic appearance of the liver ? VTE: negative Thoracic spine x-ray: Radiologist's impression: FINDINGS: The cardiac silhouette is enlarged. Atherosclerotic disease of the aortic arch. Hypoinflated lungs. Patchy bilateral airspace disease, particularly within the lower lobes. No gross lobar consolidation identified. No large pleural effusion. No pneumothorax. Old healed left posterior rib fractures. AP view of the thoracic spine demonstrates mild dextroscoliosis centered at T8. Thoracic vertebral body heights are maintained. Disc spaces appear well-maintained on frontal imaging. Small osteophytes are noted throughout the mid and lower thoracic spine. ? XR/XR thoracic spine 1V IMPRESSION: -Patchy bilateral airspace disease, most consistent with provided history of Covid pneumonia. -Mild degenerative changes of the thoracic spine without gross compression deformity.? Discharge Plan Discharge Clinical Impression: COVID-19, Respiratory failure Patient Disposition: Admitted As Inpatient Prescriptions: No Action multivitamin Tablet 1 tab PO DAILY 90 Days Qty: 90 RF: 3 (DME) pen needle, diabetic [BD Agueda 2nd Gen Pen Needle] 32 gauge x 5/32 needle See Rx Instructions .ROUTE .MEDSUPPLY Qty: 100 RF: 3 tamsulosin 0.4 mg capsule 0.4 mg PO DAILY 90 Days Qty: 90 RF: 2 hydrochlorothiazide 25 mg tablet 25 mg PO DAILY Qty: 90 RF: 2 (DME) FreeStyle Test Strip See Rx Instructions .Route Qty: 100 RF: 3 fluoxetine 20 mg capsule 20 mg PO QAM Qty: 90 RF: 2 clonazepam 1 mg tablet 1 mg PO BID 30 Days Qty: 60 RF: 2 metoprolol succinate 25 mg tablet extended release 24 hr 25 mg PO DAILY 90 Days Qty: 90 RF: 1 clonidine HCl 0.1 mg tablet 0.1 mg PO BID 30 Days Qty: 60 RF: 0 losartan 100 mg tablet 100 mg PO DAILY Qty: 90 RF: 2 tizanidine 2 mg tablet 2 mg PO BID PRN (Reason: for muscle spasm) 90 Days Qty: 180 RF: 1 pravastatin 40 mg tablet 40 mg PO DAILY Qty: 90 RF: 3 Tresiba FlexTouch U-200 200 unit/mL (3 mL) insulin pen 35 unit subcut DAILY 30 Days Qty: 9 RF: 2 Jardiance 25 mg tablet 25 mg PO DAILY Qty: 90 RF: 2 prednisone 10 mg tablet 10 mg PO DAILY 6 Days Qty: 12 RF: 0 dexamethasone 2 mg tablet 2 mg PO DAILY 7 Days Qty: 7 RF: 0 silver sulfadiazine 1 % cream 1 appl topical TID RF: 0 hydrocodone-acetaminophen 10-325 mg tablet 1 tab PO QID PRN (Reason: Pain (Scale Score 7-10)) RF: 0 cholecalciferol (vitamin D3) [Vitamin D3] 25 mcg (1,000 unit) Tablet 25 mcg PO DAILY RF: 0 metformin 1,000 mg tablet 1,000 mg PO BIDWM RF: 0 gabapentin 300 mg capsule 300 mg PO TID RF: 0 buprenorphine [Butrans] 15 mcg/hour patch weekly 1 patch transdermal Q7D 28 Days Qty: 4 RF: 0
--- NOTE | 2021-05-24 16:15 | PC.NURSE ---
attempt at reducing to a venti mask at 55% -pt dropped his 02 85%, placed back on nrb 100%
[2021-05-24 16:36] VITALS: PULSE 56; RESP 18; O2SAT 95
[2021-05-24] MEDS: 0.9 % Sodium Chloride 1,000 ML 999 ML IVCONT (16:40)
[2021-05-24] MEDS: dexAMETHasone sod phosphate 4 MG/ML VIAL 6 MG IVPUSH (16:41)
[2021-05-24 16:49] LABS: MANUAL DIFF FLAG NO
[2021-05-24 16:59] LABS: D Dimer High Sensitivity 381 NG/ML; Lactic Acid 1.7 mmol/L (0.5-2.0)
[2021-05-24 17:00] LABS: Hematocrit 38.6 % (42.0-52.0); Hemoglobin 12.2 g/dl (14.0-18.0); Imm Gran Abs Auto 0.02 X10*3/uL (0.00-0.03); Imm Gran Pct Auto 0.4 % (0.0-0.4); Lymphocytes Absolute Auto 0.7 X10*3/uL (1.2-4.9); Lymphocytes Percent Auto 13.4 % (20-40); Mean Corpuscular HGB Conc 31.6 g/dl (31.0-36.0); Mean Corpuscular Hemoglobin 29.3 pg (27.0-33.0); Mean Corpuscular Volume 92.8 fL (80.0-98.0); Mean Platelet Volume 12.1 fL (9.4-12.4); Monocytes Absolute Auto 0.3 X10*3/uL (0.1-1.2); Monocytes Percent Auto 6.1 % (2-11); Neutrophils Absolute Auto 4.3 x10*3/uL (2.0-8.3); Neutrophils Percent Auto 80.1 % (45-73); Red Blood Count 4.16 X10*6/uL (4.60-5.80); Red Cell Distribution Width 12.7 % (11.0-16.0); White Blood Count 5.4 X10*3/uL (4.8-10.8)
[2021-05-24 17:02] LABS: Platelet Count 69 X10*3/uL (160-400)
[2021-05-24 17:10] LABS: Alanine Aminotransferase 40 U/L (0-40); Albumin Level 3.2 g/dL (3.5-5.0); Alkaline Phosphatase 58 U/L (39-117); Anion Gap 13 (12-20); Aspartate Amino Transferase 72 U/L (5-37); B Type Natriuretic Peptide 74 pg/mL (<100); Bilirubin Direct 1.1 mg/dL (0.0-0.5); Blood Urea Nitrogen 52 mg/dL (9-16); Calcium 8.5 mg/dL (8.4-10.2); Carbon Dioxide 28 mmol/L (22-29); Chloride 102 mmol/L (96-108); Creatinine Clr Calc Pharmacy 51.5; Estimated Glomerular Filt Rate 55; Glucose Random 264 mg/dL (60-115); Potassium 4.4 mmol/L (3.3-5.1); Sodium 139 mmol/L (135-145); Troponin-I High Sensitivity 19.8 ng/L (<3.5-35.0)
[2021-05-24 17:14] LABS: COVID-19 Test Positive (Negative); IDNOW Serial# 55D5AD1C
[2021-05-24 18:30] VITALS: BP 127/51; PULSE 63; RESP 14; TEMP 36.9; O2SAT 96
[2021-05-24 19:57] VITALS: PULSE 60; RESP 18; O2SAT 94
[2021-05-24] MEDS: iohexoL 350 MG/ML 100 ML INFUS..BTL IV (19:59)
[2021-05-24 21:12] VITALS: BP 134/77; PULSE 56; RESP 14; TEMP 36.6; O2SAT 93
--- NOTE | 2021-05-24 21:25 | PM.IMHP ---
History of Present Illness Date of Service: 05/24/21 Chief Complaint: shortness of breath 80-year-old male with a past medical history of hypertension, hyperlipidemia, diabetes, BPH, osteoarthritis, generalized anxiety, depression, opiate dependence on Suboxone; presented to the hospital today with a chief complaint of shortness of breath. Patient reported that he was diagnosed with COVID-19 about 2 weeks ago; over the course of 2 weeks he has been having increased shortness of breath which has been gradually worsening, dyspnea on exertion, social with cough; denies any urinary symptoms. Denies any chest pain or palpitations. Denies any numbness tingling or focal weakness. Review of all other systems is negative except mentioned above ER course: Per ER team patient on presentation noted to be acutely hypoxic to 67% on room air; placed on supplemental oxygen- transitioned to high-flow nasal cannula- oxygenation improved to low 90s; CT angio of the chest was done which showed no evidence of pulmonary embolism but noted COVID pneumonia. Admitted for further management. [facility] Medical History Arthritis of left knee Arthritis of right knee HTN (hypertension) Right lumbar radiculopathy Family History Mother Hypertension Father No problems noted. Family/Other Diabetes Sister Alzheimers disease Brother Liver disease Brother Alcohol abuse Pertinent family history: as above Surgical History History of inguinal hernia repair Social History (Updated 10/12/20 @ 10:08 by CARRIE Cohen) Alcohol intake: never Patient Tobacco Use Status: Never used Tobacco Advance Directives: No Advance Directives Information Provided: No Current occupational status: retired and disabled Current occupation: rt handed Meds Allergies Allergy/AdvReac Type Severity Reaction Status Date / Time canagliflozin [From INVOKANA] Allergy Unknown RASH Verified 04/25/21 14:28 zoster vaccine live Allergy Unknown pruritis Verified 04/25/21 14:28 [Zostavax (PF)] Active Medications: Current Medications Acetaminophen (Acetaminophen 325 Mg Tablet) 650 mg PO Q6H PRN PRN Reason: Pain, Mild (Pain Scale 1-3) Azithromycin (Azithromycin 500 Mg Tablet) 500 mg PO Q24H ANY Dexamethasone Sodium Phosphate (Dexamethasone Sod Phosphate 4 Mg/Ml Vial) 12 mg IVPUSH DAILY [facility] Dextrose (Dextrose 50 % 25 Gm/50 Ml Syringe) 25 gm IVPUSH Q15M PRN; Protocol PRN Reason: per Hypoglycemia Standing Ord. Enoxaparin Sodium (Enoxaparin Sodium 40 Mg/0.4 Ml Syringe) 40 mg SUBCUT Q24H [facility] Glucose (Glucose Gel 15 Gm Gel..Gram.) 15 gm PO Q15M PRN; Protocol PRN Reason: per Hypoglycemia Standing Ord. Ceftriaxone Sodium 1 gm/ (Sodium Chloride) 50 mls @ 100 mls/hr IV ONCE ONE Stop: 05/24/21 21:46 Azithromycin 500 mg/ Sodium (Chloride) 250 mls @ 125 mls/hr IV ONCE ONE Stop: 05/24/21 23:16 Ceftriaxone Sodium 1 gm/ (Sodium Chloride) 50 mls @ 100 mls/hr IV Q24H [facility] Insulin Glargine (Insulin Glargine,Hum.Rec.Anlog 100 Unit/Ml 10 Ml Vial) 20 unit SUBCUT BEDTIME [facility] Insulin Human Lispro (Insulin Lispro 100 Unit/Ml 3 Ml Vial) 0 unit SUBCUT QIDACHS [facility]; Protocol Melatonin (Melatonin 3 Mg Tablet) 6 mg PO BEDTIME PRN PRN Reason: Insomnia Pharmacy Consult (Consult Rx Perform Med Rec) 1 each MISCELLANE ONCE PRN PRN Reason: Consult order Senna (Sennosides 8.6 Mg Tablet) 17.2 mg PO BEDTIME PRN PRN Reason: Constipation Sodium Chloride (0.9 % Sodium Chloride Flush 3 Ml Syringe) 3 ml IVFLUSH QSHIFT [facility] Home Medications Medication Instructions Recorded Confirmed Last Taken Type cholecalciferol (vitamin D3) 25 25 mcg PO DAILY 05/24/21 05/24/21 05/24/21 History mcg (1,000 unit) tablet (Vitamin D3) gabapentin 300 mg capsule 300 mg PO TID 05/24/21 05/24/21 05/24/21 History hydrocodone 10 mg-acetaminophen 1 tab PO QID PRN 05/24/21 05/24/21 Unknown History 325 mg tablet metformin 1,000 mg tablet 1,000 mg PO BIDWM 05/24/21 05/24/21 05/24/21 History silver sulfadiazine 1 % topical 1 appl TOPICAL TID 05/24/21 05/24/21 Unknown History cream Physical Exam Vital Signs and Narrative: Vital Signs: Last Vital Signs Temp 97.9 F 05/24/21 21:12 Pulse 56 05/24/21 21:12 Resp 14 05/24/21 21:12 BP 134/77 05/24/21 21:12 Pulse Ox 93 05/24/21 21:12 BMI result Body Mass Index 28.3 Gen: Appears be in no acute distress. On high-flow nasal cannula. Speaks in full sentences. HEENT: NCAT, Moist mucosa. Pulmonary: coarse breath sounds CVS: Normal S1-S2 Abdomen: BS+, Soft, Nontender Extremities: Warm well perfused Neuro: Alert and awake. Grossly nonfocal Results Labs CBC and Chem 7: 05/24/21 16:42 05/24/21 16:42 Labs: Laboratory Results - last 24 hr 05/24/21 05/24/21 05/24/21 16:42 16:42 16:42 MCV 92.8 MCH 29.3 MCHC 31.6 RDW 12.7 Plt Count 69 L MPV 12.1 Immature Gran % (Auto) 0.4 Neut % (Auto) 80.1 H Lymph % (Auto) 13.4 L [place] % (Auto) 6.1 Eos % (Auto) 0.0 Baso % (Auto) 0.0 Lymph # (Auto) 0.7 L [place] # (Auto) 0.3 Eos # (Auto) 0.0 Baso # (Auto) 0.0 Abs Immat Gran (auto) 0.02 Absolute Neuts (auto) 4.3 Absolute Nucleated RBC 0.000 Nucleated RBC % (auto) 0.0 D-Dimer High Sensitivty Anion Gap 13 Estim Creat Clear Calc 51.5 Estimated GFR 55 Random Glucose 264 H Lactic Acid 1.7 Calcium 8.5 D Total Bilirubin 2.0 H Direct Bilirubin 1.1 H AST 72 H ALT 40 Alkaline Phosphatase 58 Troponin I High Sens B-Natriuretic Peptide Total Protein 7.0 Albumin 3.2 L COVID-19 (RONNIE) COVID-19 Clin Com 05/24/21 05/24/21 05/24/21 16:42 16:42 16:42 MCV MCH MCHC RDW Plt Count MPV Immature Gran % (Auto) Neut % (Auto) Lymph % (Auto) [place] % (Auto) Eos % (Auto) Baso % (Auto) Lymph # (Auto) [place] # (Auto) Eos # (Auto) Baso # (Auto) Abs Immat Gran (auto) Absolute Neuts (auto) Absolute Nucleated RBC Nucleated RBC % (auto) D-Dimer High Sensitivty 381 Anion Gap Estim Creat Clear Calc Estimated GFR Random Glucose Lactic Acid Calcium Total Bilirubin Direct Bilirubin AST ALT Alkaline Phosphatase Troponin I High Sens 19.8 B-Natriuretic Peptide 74 Total Protein Albumin COVID-19 (RONNIE) Positive A COVID-19 Clin Com See Note Imaging Radiologist's Impressions: Impressions Chest X-Ray 05/24/21 17:40 IMPRESSION: -Patchy bilateral airspace disease, most consistent with provided history of Covid pneumonia. -Mild degenerative changes of the thoracic spine without gross compression deformity. Thoracic Spine X-Ray 05/24/21 17:40 IMPRESSION: -Patchy bilateral airspace disease, most consistent with provided history of Covid pneumonia. -Mild degenerative changes of the thoracic spine without gross compression deformity. Chest CTA 05/24/21 20:10 IMPRESSION: 1. No pulmonary embolism. 2. Extensive bilateral airspace disease consistent with Covid pneumonia. 3. Cirrhotic appearance of the liver VTE: negative Assessment and Plan (1) COVID-19: Status: Acute (2) Respiratory failure: Status: Acute (3) DMII (diabetes mellitus, type 2): Qualifiers: Diabetes mellitus complication detail: with polyneuropathy Diabetes mellitus complication status: with neurologic complications Diabetes mellitus parts counterman insulin use: with residential use Qualified Code(s): E11.42 - Type 2 diabetes mellitus with diabetic polyneuropathy; Z79.4 - skilled nursing (current) use of insulin Status: Acute (4) HTN (hypertension): Qualifiers: Hypertension type: essential hypertension Qualified Code(s): I10 - Essential (primary) hypertension Status: Acute (5) GREGORIO (generalized anxiety disorder): Status: Acute 80-year-old male with a past medical history of hypertension, hyperlipidemia, diabetes, BPH, osteoarthritis, generalized anxiety, depression, opiate dependence on Suboxone; presented to the hospital today with a chief complaint of shortness of breath. Noted to have acute hypoxic respiratory failure in the setting of COVID-19 pneumonia. Admitted for further management. Acute hypoxic respiratory failure: Patient initially on presentation no saturating at 67% on room air placed on high-flow nasal cannula At 55 L; saturating 91-93%. Speaks in full sentences. Will monitor closely and titrate oxygen as needed. morphine p.r.n. Pulmonology consult COVID-19 pneumonia: Will keep the patient on ceftriaxone azithromycin empirically. Started Decadron full mg daily. Id consult for further recommendations. Diabetes: Will keep the patient on Lantus 20 units and insulin sliding scale. Monitor fingerstick glucose and adjust as needed. hold home regimen. History of anxiety / depression: Continue home clonazepam, clonidine, fluoxetine, gabapentin. History of opiate dependence: Patient on Suboxone. addiction Medicine consult. DVT prophylaxis: Lovenox Code status: Full Code pt admant in leaving AMA, removing oxygen-> causing desaturation to 70% on RA; placed on Non rebreather. Agreed to stay for now after discussion of risks. Called pt's Daughter Ph-> [phone] Jessica CABALLERO vna-> not reachable; unable to leave voice msg. Spoke to pts' other daughter. ph [phone] ; confirmed code status. updated plan of care Quality Stroke Does the patient have a stroke diagnosis?: No VTE Prior VTE?: No VTE Risk Level:: Medical - moderate - high VTE Device Contraindication: Treatment Not Indicated VTE Drug Contraindication: N/A - Med Ordered
[2021-05-24] MEDS: Azithromycin 500 MG in 0.9 % Sodium Chloride 250 ML 125 MG IV (22:15)
[2021-05-24] MEDS: cefTRIAXone sodium 1 GM in 0.9 % Sodium Chloride 50 ML IV (22:16)
[2021-05-24] MEDS: Enoxaparin Sodium 40 MG/0.4 ML SYRINGE SUBCUT (22:16)
[2021-05-24] MEDS: 0.9 % Sodium Chloride Flush 3 ML SYRINGE IVFLUSH (22:17)
[2021-05-24 23:07] LABS: Glucose, Whole Blood 218 mg/dL (60-115)
[2021-05-25] VITALS (14 sets, daily range): BP systolic 93–135; BP diastolic 49–61; PULSE 47–72; RESP 13–22; TEMP 36.5–37.1; O2SAT 87–99
--- NOTE | 2021-05-25 00:12 | PC.NURSE ---
RT notified as pt is constantly removing high flow from nose throughout the evening, desatting to 80-82%. RT at bedside to reassess, consider NRB.
[2021-05-25] MEDS: diphenhydrAMINE HCL 25 MG TABLET PO (03:43)
--- NOTE | 2021-05-25 04:42 | PC.NURSE ---
pt pulled 02 off sat droped to 68% on room air. resp at bedside pt place high flow 50/90% sat improved to 99% hr 65, rr 16
--- NOTE | 2021-05-25 05:28 | PC.NURSE ---
per conversation with dr ledezma and this rn: per conversation with dr egan and pt daughter pt is to be a full code. when the pt wakes up he is to call his daughter at [phone] to talk about the change in code status.
[2021-05-25 07:06] LABS: Basophils Percent Auto 0.2 % (0-2); Hematocrit 41.5 % (42.0-52.0); Hemoglobin 12.9 g/dl (14.0-18.0); Imm Gran Abs Auto 0.01 X10*3/uL (0.00-0.03); Imm Gran Pct Auto 0.2 % (0.0-0.4); Lymphocytes Absolute Auto 0.5 X10*3/uL (1.2-4.9); Lymphocytes Percent Auto 10.1 % (20-40); MANUAL DIFF FLAG SCAN; Mean Corpuscular HGB Conc 31.1 g/dl (31.0-36.0); Mean Corpuscular Hemoglobin 29.5 pg (27.0-33.0); Mean Platelet Volume 11.9 fL (9.4-12.4); Monocytes Absolute Auto 0.3 X10*3/uL (0.1-1.2); Monocytes Percent Auto 5.2 % (2-11); Neutrophils Absolute Auto 4.5 x10*3/uL (2.0-8.3); Neutrophils Percent Auto 84.3 % (45-73); Red Blood Count 4.37 X10*6/uL (4.60-5.80); Red Cell Distribution Width 12.7 % (11.0-16.0); SCAN SMEAR FLAG 1; White Blood Count 5.3 X10*3/uL (4.8-10.8)
[2021-05-25 07:08] LABS: Platelet Count 81 X10*3/uL (160-400)
[2021-05-25 07:32] LABS: Anion Gap 20 (12-20); Blood Urea Nitrogen 50 mg/dL (9-16); Calcium 8.6 mg/dL (8.4-10.2); Carbon Dioxide 22 mmol/L (22-29); Chloride 105 mmol/L (96-108); Creatinine Clr Calc Pharmacy 61.7; Estimated Glomerular Filt Rate > 60; Glucose Random 197 mg/dL (60-115); Potassium 4.6 mmol/L (3.3-5.1); Sodium 142 mmol/L (135-145)
[2021-05-25 07:33] LABS: SLIDE REVIEW VERIFIED
[2021-05-25 08:32] LABS: Glucose, Whole Blood 166 mg/dL (60-115)
--- NOTE | 2021-05-25 09:14 | PC.NURSE ---
pt's daughter isreal ([phone]) called [facility] [place] and was updated on pt status.
[2021-05-25] MEDS: Metoprolol Succinate ER 25 MG TAB.ER.24H PO (09:41)
[2021-05-25] MEDS: TiZANidine HCL 4 MG TABLET 2 MG PO (09:42)
[2021-05-25] MEDS: Acetaminophen 325 MG TABLET 650 MG PO (09:42)
[2021-05-25] MEDS: clonazePAM 1 MG TABLET PO ×2 (09:42→22:03)
[2021-05-25] MEDS: Tamsulosin HCL 0.4 MG CAPSULE PO (09:42)
[2021-05-25] MEDS: FLUoxetine HCl 20 MG CAPSULE PO (09:42)
[2021-05-25] MEDS: Gabapentin 300 MG CAPSULE PO ×3 (09:42→22:03)
[2021-05-25] MEDS: Losartan Potassium 50 MG TABLET 100 MG PO (09:42)
[2021-05-25] MEDS: Insulin Lispro 100 UNIT/ML 3 ML VIAL SUBCUT ×4 (09:43→22:02)
[2021-05-25] MEDS: 0.9 % Sodium Chloride Flush 3 ML SYRINGE IVFLUSH ×2 (09:43→15:41)
[2021-05-25] MEDS: dexAMETHasone sod phosphate 4 MG/ML VIAL 12 MG IVPUSH (09:44)
[2021-05-25] MEDS: Pravastatin Sodium 40 MG TABLET PO (09:45)
--- NOTE | 2021-05-25 10:36 | MHC.CM.PN ---
Addendum entered by Chasidy Butts 05/25/21 10:45: MESSAGE LEFT FOR MAGALI ([phone]) AT [facility] REQUESTING A RETURN CALL WITH PTS VNA AND PCP INFORMATION Original Note: SACHI ATTEMPTED TO CONTACT PTS HCP, ADORE AT THE NUMBER LISTED [phone], HOWEVER THE NUMBER APPEARS TO BE INCORRECT AND GOES TO A VM FOR SOMEONE NAMED RASHAUN. CM CALLED PTS PRIMARY CONTACT/DAUGHTER, ROSE VAZQUEZ [phone]. 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 SHE REPORTS THE PT ALSO HAS A NURSE THAT SEES HIM TWICE DAILY BUT SHE DOES NOT KNOW THE AGENCY. SHE IS ALSO UNSURE OF PTS PCP. SHE REPORTS PT USES A WALKER TO AMBULATE AND HAS NO OTHER DME PTS MEDICARE RIGHTS WERE REVIEWED, ORIGINAL WILL BE MAILED TO PTS HOME, COPY SENT TO [facility] ROSE REPORTS SHE WILL UPDATE HER FAMILY SHE ALSO ASKS THAT PT NOT BE ALLOWED TO LEAVE AMA SHE WORRIES HE WILL WANT TO GO HOME. SACHI ENCOURAGED HER TO SPEAK TO THE PT ABOUT THIS AND ASSURED HER STAFF WOULD TRY TO CONVINCE PT TO STAY FOR TREATMENT IF HE ASKED TO SIGN OUT CURRENT DC PLAN IS HOME WITH RESUMPTION OF SERVICES. SACHI WILL CONTACT [facility] TO DETERMINE VNA AGENCY AND PCP NAME FAMILY WILL TRANSPORT AT DC
--- NOTE | 2021-05-25 11:40 | HO.PM.IMPN ---
"Subjective Subjective Date of Service: 05/25/21 Interval History: F/u on covid PNA with resp failure, looks clinically well but signficantly hypoxic Review of Systems no fever no cough Physical Exam Vital Signs: Vital Signs: Last Vital Signs Temp 97.7 F 05/25/21 07:52 Pulse 58 05/25/21 11:12 Resp 21 H 05/25/21 11:15 BP 93/49 L 05/25/21 11:12 Pulse Ox 91 L 05/25/21 11:12 BMI result Body Mass Index 28.3 Const: Other: General: AO X 3, no acute distress Resp: normal resp effort CVS: S1,S2,RRR GI: +BS, NT, no distention Skin: No rash Neuro: motor grossly intact Psych: appropriate affect Objective Data Active Medications Acetaminophen (Acetaminophen 325 Mg Tablet) 650 mg PO Q6H PRN PRN Reason: Pain, Mild (Pain Scale 1-3) Last Admin: 05/25/21 09:42 Dose: 650 mg Documented by: BILL Clonazepam (Clonazepam 1 Mg Tablet) 1 mg PO BID [facility] Last Admin: 05/25/21 09:42 Dose: 1 mg Documented by: BILL Dexamethasone Sodium Phosphate (Dexamethasone Sod Phosphate 4 Mg/Ml Vial) 12 mg IVPUSH DAILY [facility] Last Admin: 05/25/21 09:44 Dose: 12 mg Documented by: BILL Dextrose (Dextrose 50 % 25 Gm/50 Ml Syringe) 25 gm IVPUSH Q15M PRN; Protocol PRN Reason: per Hypoglycemia Standing Ord. Enoxaparin Sodium (Enoxaparin Sodium 40 Mg/0.4 Ml Syringe) 40 mg SUBCUT Q24H [facility] Last Admin: 05/24/21 22:16 Dose: 40 mg Documented by: PETER Fluoxetine HCl (Fluoxetine Hcl 20 Mg Capsule) 20 mg PO DAILY [facility] Last Admin: 05/25/21 09:42 Dose: 20 mg Documented by: BILL Gabapentin (Gabapentin 300 Mg Capsule) 300 mg PO TID [facility] Last Admin: 05/25/21 09:42 Dose: 300 mg Documented by: BILL Glucose (Glucose Gel 15 Gm Gel..Gram.) 15 gm PO Q15M PRN; Protocol PRN Reason: per Hypoglycemia Standing Ord. Insulin Glargine (Insulin Glargine,Hum.Rec.Anlog 100 Unit/Ml 10 Ml Vial) 20 unit SUBCUT BEDTIME [facility] Insulin Human Lispro (Insulin Lispro 100 Unit/Ml 3 Ml Vial) 0 unit SUBCUT QIDACHS [facility]; Protocol Last Admin: 05/25/21 09:43 Dose: 2 unit Documented by: BILL Losartan Potassium (Losartan Potassium 50 Mg Tablet) 100 mg PO DAILY [facility]; Protocol Last Admin: 05/25/21 09:42 Dose: 100 mg Documented by: BILL Melatonin (Melatonin 3 Mg Tablet) 6 mg PO BEDTIME PRN PRN Reason: Insomnia Metoprolol Succinate (Metoprolol Succinate Er 25 Mg Tab.Er.24h) 25 mg PO DAILY [facility]; Protocol Last Admin: 05/25/21 09:41 Dose: 25 mg Documented by: BILL Morphine Sulfate (Morphine Sulfate 2 Mg/Ml Cartridge) 1 mg IVPUSH Q4H PRN; Protocol PRN Reason: pain/SOb Pharmacy Consult (Consult Rx Perform Med Rec) 1 each MISCELLANE ONCE PRN PRN Reason: Consult order Pravastatin Sodium (Pravastatin Sodium 40 Mg Tablet) 40 mg PO DAILY [facility] Last Admin: 05/25/21 09:45 Dose: 40 mg Documented by: BILL Senna (Sennosides 8.6 Mg Tablet) 17.2 mg PO BEDTIME PRN PRN Reason: Constipation Sodium Chloride (0.9 % Sodium Chloride Flush 3 Ml Syringe) 3 ml IVFLUSH QSHIFT [facility] Last Admin: 05/25/21 09:43 Dose: 3 ml Documented by: BILL Tamsulosin HCl (Tamsulosin Hcl 0.4 Mg Capsule) 0.4 mg PO DAILY [facility] Last Admin: 05/25/21 09:42 Dose: 0.4 mg Documented by: BILL Tizanidine HCl (Tizanidine Hcl 4 Mg Tablet) 2 mg PO BID PRN PRN Reason: for muscle spasm Last Admin: 05/25/21 09:42 Dose: 2 mg Documented by: BILL Labs CBC & Chem 7: 05/25/21 06:42 05/25/21 06:42 Labs: Laboratory Results - last 24 hr 05/24/21 05/24/21 05/24/21 16:42 16:42 16:42 MCV 92.8 MCH 29.3 MCHC 31.6 RDW 12.7 Plt Count 69 L MPV 12.1 Immature Gran % (Auto) 0.4 Neut % (Auto) 80.1 H Lymph % (Auto) 13.4 L Snyder % (Auto) 6.1 Eos % (Auto) 0.0 Baso % (Auto) 0.0 Lymph # (Auto) 0.7 L Snyder # (Auto) 0.3 Eos # (Auto) 0.0 Baso # (Auto) 0.0 Abs Immat Gran (auto) 0.02 Absolute Neuts (auto) 4.3 Absolute Nucleated RBC 0.000 Nucleated RBC % (auto) 0.0 Smear Tech's Comments D-Dimer High Sensitivty Anion Gap 13 Estim Creat Clear Calc 51.5 Estimated GFR 55 POC Glucose Random Glucose 264 H Lactic Acid 1.7 Calcium 8.5 D Total Bilirubin 2.0 H Direct Bilirubin 1.1 H AST 72 H ALT 40 Alkaline Phosphatase 58 Troponin I High Sens B-Natriuretic Peptide Total Protein 7.0 Albumin 3.2 L COVID-19 (RONNIE) COVID-[employer] 05/24/21 05/24/21 05/24/21 16:42 16:42 16:42 MCV MCH MCHC RDW Plt Count MPV Immature Gran % (Auto) Neut % (Auto) Lymph % (Auto) Snyder % (Auto) Eos % (Auto) Baso % (Auto) Lymph # (Auto) Snyder # (Auto) Eos # (Auto) Baso # (Auto) Abs Immat Gran (auto) Absolute Neuts (auto) Absolute Nucleated RBC Nucleated RBC % (auto) Smear Tech's Comments D-Dimer High Sensitivty 381 Anion Gap Estim Creat Clear Calc Estimated GFR POC Glucose Random Glucose Lactic Acid Calcium Total Bilirubin Direct Bilirubin AST ALT Alkaline Phosphatase Troponin I High Sens 19.8 B-Natriuretic Peptide 74 Total Protein Albumin COVID-19 (RONNIE) Positive A [employer] See Note 05/24/21 05/25/21 05/25/21 23:02 06:42 06:42 MCV 95.0 MCH 29.5 MCHC 31.1 RDW 12.7 Plt Count 81 L MPV 11.9 Immature Gran % (Auto) 0.2 Neut % (Auto) 84.3 H Lymph % (Auto) 10.1 L Snyder % (Auto) 5.2 Eos % (Auto) 0.0 Baso % (Auto) 0.2 Lymph # (Auto) 0.5 L Snyder # (Auto) 0.3 Eos # (Auto) 0.0 Baso # (Auto) 0.0 Abs Immat Gran (auto) 0.01 Absolute Neuts (auto) 4.5 Absolute Nucleated RBC 0.000 Nucleated RBC % (auto) 0.0 Smear Tech's Comments VERIFIED D-Dimer High Sensitivty Anion Gap 20 Estim Creat Clear Calc 61.7 Estimated GFR > 60 POC Glucose 218 H Random Glucose 197 H Lactic Acid Calcium 8.6 Total Bilirubin Direct Bilirubin AST ALT Alkaline Phosphatase Troponin I High Sens B-Natriuretic Peptide Total Protein Albumin COVID-19 (RONNIE) COVID-19 Clin Com 05/25/21 08:27 MCV MCH MCHC RDW Plt Count MPV Immature Gran % (Auto) Neut % (Auto) Lymph % (Auto) Snyder % (Auto) Eos % (Auto) Baso % (Auto) Lymph # (Auto) Snyder # (Auto) Eos # (Auto) Baso # (Auto) Abs Immat Gran (auto) Absolute Neuts (auto) Absolute Nucleated RBC Nucleated RBC % (auto) Smear Tech's Comments D-Dimer High Sensitivty Anion Gap Estim Creat Clear Calc Estimated GFR POC Glucose 166 H Random Glucose Lactic Acid Calcium Total Bilirubin Direct Bilirubin AST ALT Alkaline Phosphatase Troponin I High Sens B-Natriuretic Peptide Total Protein Albumin COVID-19 (RONNIE) COVID-19 Clin Com Assessment and Plan (1) Respiratory failure: Status: Acute (2) COVID-19: Status: Acute Assessment and Plan: 80-year-old male with a past medical history of hypertension, hyperlipidemia, diabetes, BPH, osteoarthritis, generalized anxiety, depression, opiate dependence on Suboxone; presented to the hospital today with a chief complaint of shortness of breath.? ? Noted to have acute hypoxic respiratory failure in the setting of COVID-19 pneumonia.? Admitted for further management.? Acute, severe hypoxic respiratory failure, on high flow -continue high flow -Dexametasone -Baricitinib to be ordered by Pulmonology COVID-19 pneumonia:? Will keep the patient on ceftriaxone azithromycin empirically.? Id consult for further recommendations.? Diabetes:? Lantus, SSI, and Diabetes diet History of anxiety / depression: Continue home clonazepam, clonidine, fluoxetine, gabapentin. History of opiate dependence: Patient on Suboxone. ? addiction Medicine consult.? DVT prophylaxis:? Lovenox Code status:? Full Code Quality Stroke Does the patient have a stroke diagnosis?: No VTE Prior VTE?: No VTE Risk Level:: Medical - moderate - high VTE Device Contraindication: Treatment Not Indicated VTE Drug Contraindication: N/A - Med Ordered"
[2021-05-25 13:12] LABS: Glucose, Whole Blood 220 mg/dL (60-115)
--- NOTE | 2021-05-25 13:21 | MHC.CM.PN ---
Addendum entered by Letty Villaseñor 05/25/21 13:29: Per Ubaldo Sales's office, patient is active with [facility]. [facility]erral [facility] via [facility]. Original Note: Received notification from Jody at [facility] that patient does not have [facility]. PCP is Evaristo Sales. Patient receives DUMP OPERATOR hours through [facility]. Continue to monitor for d/c needs.
--- NOTE | 2021-05-25 13:54 | PC.NURSE ---
PT'S DAUGHTER JASMYN BROUGHT PT FLIP PHONE AND SAUSAGE [employer]NER WHICH WAS PLACED AT PT'S BEDSIDE.
--- NOTE | 2021-05-25 14:03 | PC.NURSE ---
THIS RN RETURNED PT'S RN (WALKER LUZ FROM [facility] - [phone]) CALL AND SHE WAS UPDATED ON PT STATUS.
--- NOTE | 2021-05-25 14:05 | PC.NURSE ---
PT IS SLEEPING RESP EVEN AND UNLABORED. INSULIN SLIDING SCALE NOT GIVEN YET.
--- NOTE | 2021-05-25 14:10 | PC.NURSE ---
PER PT'S HAND II THERMAL CUTTER ([facility]) PT USUALLY TAKES PERCOCET 10/325MG PO Q6HR PRN/PAIN.
--- NOTE | 2021-05-25 15:25 | P.CONPL_ITS ---
History of Present Illness History of Present Illness Consult date: 05/25/21 Requesting physician: Edouard Quinn Chief complaint: Acute hypoxic respiratory failure Narrative: 80-year-old gentleman with underlying history of hypertension, diabetes mellitus, anxiety, opioid dependence on Suboxone, COVID-19 positive for approximately 14 days admitted on 05/24/2021 with gradually worsening dyspnea and hypoxemia secondary to COVID-19 requiring high-flow nasal cannula to maintain normoxemia. Patient has been started on dexamethasone. Review of Systems Review of Systems: Yes Unobtainable due to mental status (Confused) Neurologic: Reports confusion Psychiatric: Psychiatric: Reports confusion [facility] Past Medical History Medical History Arthritis of left knee Arthritis of right knee HTN (hypertension) Right lumbar radiculopathy Family History Family History Mother Hypertension Father No problems noted. Family/Other Diabetes Sister Alzheimers disease Brother Liver disease Brother Alcohol abuse Surgical History Surgical History History of inguinal hernia repair Social History Social History (Updated 10/12/20 @ 10:08 by CARRIE Cohen) Alcohol intake: never Patient Tobacco Use Status: Never used Tobacco Use of substances other than those prescribed or required for medical reasons: No Advance Directives: No Advance Directives Information Provided: No service: No Current occupational status: unemployed and disabled Current occupation: rt handed Meds Allergies Allergy/AdvReac Type Severity Reaction Status Date / Time canagliflozin [From INVOKANA] Allergy Unknown RASH Verified 04/25/21 14:28 zoster vaccine live Allergy Unknown pruritis Verified 04/25/21 14:28 [Zostavax (PF)] Active Medications: Current Medications Acetaminophen (Acetaminophen 325 Mg Tablet) 650 mg PO Q6H PRN PRN Reason: Pain, Mild (Pain Scale 1-3) Last Admin: 05/25/21 09:42 Dose: 650 mg Documented by: Clonazepam (Clonazepam 1 Mg Tablet) 1 mg PO BID [facility] Last Admin: 05/25/21 09:42 Dose: 1 mg Documented by: Dexamethasone Sodium Phosphate (Dexamethasone Sod Phosphate 4 Mg/Ml Vial) 12 mg IVPUSH DAILY [facility] Last Admin: 05/25/21 09:44 Dose: 12 mg Documented by: Dextrose (Dextrose 50 % 25 Gm/50 Ml Syringe) 25 gm IVPUSH Q15M PRN; Protocol PRN Reason: per Hypoglycemia Standing Ord. Enoxaparin Sodium (Enoxaparin Sodium 40 Mg/0.4 Ml Syringe) 40 mg SUBCUT Q24H [facility] Last Admin: 05/24/21 22:16 Dose: 40 mg Documented by: Fluoxetine HCl (Fluoxetine Hcl 20 Mg Capsule) 20 mg PO DAILY [facility] Last Admin: 05/25/21 09:42 Dose: 20 mg Documented by: Gabapentin (Gabapentin 300 Mg Capsule) 300 mg PO TID [facility] Last Admin: 05/25/21 09:42 Dose: 300 mg Documented by: Glucose (Glucose Gel 15 Gm Gel..Gram.) 15 gm PO Q15M PRN; Protocol PRN Reason: per Hypoglycemia Standing Ord. Insulin Glargine (Insulin Glargine,Hum.Rec.Anlog 100 Unit/Ml 10 Ml Vial) 20 unit SUBCUT BEDTIME [facility] Insulin Human Lispro (Insulin Lispro 100 Unit/Ml 3 Ml Vial) 0 unit SUBCUT QIDACHS [facility]; Protocol Last Admin: 05/25/21 14:58 Dose: 4 unit Documented by: Losartan Potassium (Losartan Potassium 50 Mg Tablet) 100 mg PO DAILY [facility]; Protocol Last Admin: 05/25/21 09:42 Dose: 100 mg Documented by: Melatonin (Melatonin 3 Mg Tablet) 6 mg PO BEDTIME PRN PRN Reason: Insomnia Metoprolol Succinate (Metoprolol Succinate Er 25 Mg Tab.Er.24h) 25 mg PO DAILY [facility]; Protocol Last Admin: 05/25/21 09:41 Dose: 25 mg Documented by: Morphine Sulfate (Morphine Sulfate 2 Mg/Ml Cartridge) 1 mg IVPUSH Q4H PRN; Protocol PRN Reason: pain/SOb Non-Formulary Medication (Baricitinib) 4 mg PO DAILY [facility] Pharmacy Consult (Consult Rx Perform Med Rec) 1 each MISCELLANE ONCE PRN PRN Reason: Consult order Pravastatin Sodium (Pravastatin Sodium 40 Mg Tablet) 40 mg PO DAILY [facility] Last Admin: 05/25/21 09:45 Dose: 40 mg Documented by: Senna (Sennosides 8.6 Mg Tablet) 17.2 mg PO BEDTIME PRN PRN Reason: Constipation Sodium Chloride (0.9 % Sodium Chloride Flush 3 Ml Syringe) 3 ml IVFLUSH QSHIFT [facility] Last Admin: 05/25/21 09:43 Dose: 3 ml Documented by: Tamsulosin HCl (Tamsulosin Hcl 0.4 Mg Capsule) 0.4 mg PO DAILY [facility] Last Admin: 05/25/21 09:42 Dose: 0.4 mg Documented by: Tizanidine HCl (Tizanidine Hcl 4 Mg Tablet) 2 mg PO BID PRN PRN Reason: for muscle spasm Last Admin: 05/25/21 09:42 Dose: 2 mg Documented by: Home Medications Medication Instructions Recorded Confirmed Last Taken Type cholecalciferol (vitamin D3) 25 25 mcg PO DAILY 05/24/21 05/24/21 05/24/21 History mcg (1,000 unit) tablet (Vitamin D3) gabapentin 300 mg capsule 300 mg PO TID 05/24/21 05/24/21 05/24/21 History hydrocodone 10 mg-acetaminophen 1 tab PO QID PRN 05/24/21 05/24/21 Unknown History 325 mg tablet metformin 1,000 mg tablet 1,000 mg PO BIDWM 05/24/21 05/24/21 05/24/21 History silver sulfadiazine 1 % topical 1 appl TOPICAL TID 05/24/21 05/24/21 Unknown History cream Physical Exam Vital Signs: Vital Signs: Last Vital Signs Temp 98.8 F 05/25/21 12:45 Pulse 47 L 05/25/21 12:45 Resp 17 05/25/21 12:45 BP 112/52 L 05/25/21 12:45 Pulse Ox 98 05/25/21 12:45 BMI result Body Mass Index 28.3 Const: General: no acute distress, awake and confusion Orientation/consciousness: confusion Eyes: Sclerae: sclerae normal EOM: EOMs intact bilaterally Neck: Neck: Yes no lymphadenopathy, Yes trachea midline and Yes supple Resp: Effort & Inspection: normal respiratory effort (On high-flow nasal cannula) and no respiratory distress Auscultation: crackles (Bibasilar) Cardio: Rate: regular rate Rhythm: regular rhythm Heart sounds: no gallops, no murmurs and no rubs GI: Palpation (GI): Soft to palpation and Other GI palpation findings present ( Nontender) Auscultation: normal bowel sounds Neuro: General: confusion Extrem: General: No clubbing, No cyanosis and Yes pedal edema (Trace bilateral) Results Laboratory Findings CBC and BMP: 05/25/21 06:42 05/25/21 06:42 Abnormal lab findings: Abnormal Labs 05/24/21 05/24/21 05/24/21 16:42 16:42 16:42 RBC 4.16 L Hgb 12.2 L Hct 38.6 L Plt Count 69 L Neut % (Auto) 80.1 H Lymph % (Auto) 13.4 L Lymph # (Auto) 0.7 L BUN 52 H POC Glucose Random Glucose 264 H Total Bilirubin 2.0 H Direct Bilirubin 1.1 H AST 72 H Albumin 3.2 L COVID-19 (RONNIE) Positive A 05/24/21 05/25/21 05/25/21 23:02 06:42 06:42 RBC 4.37 L Hgb 12.9 L Hct 41.5 L Plt Count 81 L Neut % (Auto) 84.3 H Lymph % (Auto) 10.1 L Lymph # (Auto) 0.5 L BUN 50 H POC Glucose 218 H Random Glucose 197 H Total Bilirubin Direct Bilirubin AST Albumin COVID-19 (RONNIE) 05/25/21 05/25/21 08:27 13:08 RBC Hgb Hct Plt Count Neut % (Auto) Lymph % (Auto) Lymph # (Auto) BUN POC Glucose 166 H 220 H Random Glucose Total Bilirubin Direct Bilirubin AST Albumin COVID-19 (RONNIE) Assessment and Plan (1) Acute respiratory distress syndrome (ARDS) due to COVID-19 virus: Status: Acute (2) Acute respiratory failure with hypoxia: Status: Acute Impression: 80-year-old gentleman COVID-19 positive approximately 14 days prior admitted with worsening dyspnea secondary to acute hypoxic respiratory failure from COVID-19 ARDS now requiring high-flow nasal cannula support. Started on dexamethasone. Recommendations: Continue with dexamethasone and supplemental oxygen support as needed to maintain normoxemia. Will add baricitinib. Procedures Date of Service Date of Service: 05/25/21
--- NOTE | 2021-05-25 16:08 | PC.NURSE ---
RN assumed care at 1500, pt alert and confused only oriented to self, per medical hx this is baseline for patient. Pt states back pain 3/10, pt repositioned and states he is comfortable. Denies chest pain, denies SOB at rest. Pt asked for bedpan and was placed on it, no BM or void noted. Buttock skin intact. IV intact flushing without issues. Vitals remain stable. Pt remains on high flow nasal canula at this time with O2 sat in the low 90s. Pt noted to pull off O2 at times, reoriented and instructed not to do so throughout shift. Pt resting in stretcher without issues, will continue to monitor.
--- NOTE | 2021-05-25 16:39 | PC.NURSE ---
Pt got OOB on his own and started urinating and defecating on the floor. Pt noted to have medium sized soft BM and urinated a large amount. Pt re-oriented and educated not to get out of bed on his own and to call out for assistance or use call almanza, pt educated on how to use call almanza, call almanza remains at bed side at this time. Wound noted to top of right foot, wound color is red with slough noted and has drainage to old dressing. Wound cleaned with normal saline and dry clean sterile dressing placed, dressing remains intact at this time. Pt tolerated dressing change well, no signs of pain noted.
[2021-05-25 18:18] LABS: Glucose, Whole Blood 271 mg/dL (60-115)
[2021-05-25 21:56] LABS: Glucose, Whole Blood 308 mg/dL (60-115)
[2021-05-25] MEDS: Insulin Glargine,Hum.rec.anlog 100 UNIT/ML 10 ML VIAL 20 UNIT SUBCUT (22:01)
[2021-05-25] MEDS: Enoxaparin Sodium 40 MG/0.4 ML SYRINGE SUBCUT (22:03)
[2021-05-26] VITALS (13 sets, daily range): BP systolic 127–160; BP diastolic 47–74; PULSE 45–78; RESP 13–22; TEMP 36.1–36.9; O2SAT 88–95
--- NOTE | 2021-05-26 04:48 | PC.NURSE ---
Report given to Devin in overflow, RT at bedside for transport.
[2021-05-26] MEDS: Morphine Sulfate 2 MG/ML CARTRIDGE 1 MG IVPUSH (05:13)
--- NOTE | 2021-05-26 05:13 | PC.NURSE ---
Addendum entered by Devin Pritchett RN 05/26/21 06:06: Patient attempted to get out of bed - very forgetful. Responded to bed alarm - Attempted to stand and use urinal - extremely unsteady. voided all over floor. Full bed change / bed bath given. Voided approx 300ml yellow urine. No resp distress. Addendum entered by Devin Pritchett RN 05/26/21 05:16: Patient calm, cooperative. telesitter put in place at bedside, bed alarm put on for safety for high fall risk precautions. Patient SB on monitor, 57. Original Note: transferred over to overflow to bed 1 - covid precautions in place. patient on high flow 55 liters & 90%. o2 sat 98%. Vitals stable. Patient c/o back pain - medicated w/ morphine 1mg IVP.
[2021-05-26 07:43] LABS: Glucose, Whole Blood 183 mg/dL (60-115)
[2021-05-26] MEDS: Metoprolol Succinate ER 25 MG TAB.ER.24H PO (07:54)
[2021-05-26] MEDS: Losartan Potassium 50 MG TABLET 100 MG PO (07:54)
[2021-05-26] MEDS: Insulin Lispro 100 UNIT/ML 3 ML VIAL SUBCUT ×4 (07:55→21:18)
[2021-05-26] MEDS: dexAMETHasone sod phosphate 4 MG/ML VIAL 12 MG IVPUSH (07:55)
[2021-05-26] MEDS: FLUoxetine HCl 20 MG CAPSULE PO (07:55)
[2021-05-26] MEDS: Gabapentin 300 MG CAPSULE PO ×3 (07:57→21:18)
[2021-05-26] MEDS: 0.9 % Sodium Chloride Flush 3 ML SYRINGE IVFLUSH ×2 (07:57→21:19)
[2021-05-26] MEDS: Tamsulosin HCL 0.4 MG CAPSULE PO (07:58)
[2021-05-26] MEDS: Pravastatin Sodium 40 MG TABLET PO (09:52)
[2021-05-26] MEDS: clonazePAM 1 MG TABLET PO ×2 (09:52→21:18)
--- NOTE | 2021-05-26 11:41 | PC.NURSE ---
pt alert, pleasantly confused, pt made 2 attempts to get out of bed without assistance. pt currently on high flow at 55 lpm satting low to mid 90s, sinus my on monitor. meds given as documented. breakfast given. pt awaiting bed assignment. will continue to monitor.
--- NOTE | 2021-05-26 11:50 | HO.PM.IMPN ---
Subjective Subjective Date of Service: 05/26/21 Interval History: F/u on covid PNA with resp failure, looks clinically well but signficantly hypoxic Review of Systems no fever no cough Physical Exam Vital Signs: Vital Signs: Last Vital Signs Temp 97 F 05/26/21 07:53 Pulse 57 05/26/21 07:53 Resp 20 05/26/21 08:40 BP 134/64 05/26/21 07:53 Pulse Ox 95 05/26/21 07:53 BMI result Body Mass Index 28.3 Const: Other: General: AO X 3, no acute distress Resp: normal resp effort CVS: S1,S2,RRR GI: +BS, NT, no distention Skin: No rash Neuro: motor grossly intact Psych: appropriate affect Objective Data Active Medications Acetaminophen (Acetaminophen 325 Mg Tablet) 650 mg PO Q6H PRN PRN Reason: Pain, Mild (Pain Scale 1-3) Last Admin: 05/25/21 09:42 Dose: 650 mg Documented by: BILL Baricitinib (Baricitinib 2 Mg Tablet) 4 mg PO Q24H [facility] Stop: 06/08/21 09:01 Last Admin: 05/26/21 09:52 Dose: 4 mg Documented by: AMBER Clonazepam (Clonazepam 1 Mg Tablet) 1 mg PO BID [facility] Last Admin: 05/26/21 09:52 Dose: 1 mg Documented by: AMBER Dexamethasone Sodium Phosphate (Dexamethasone Sod Phosphate 4 Mg/Ml Vial) 12 mg IVPUSH DAILY [facility] Last Admin: 05/26/21 07:55 Dose: 12 mg Documented by: AMY Dextrose (Dextrose 50 % 25 Gm/50 Ml Syringe) 25 gm IVPUSH Q15M PRN; Protocol PRN Reason: per Hypoglycemia Standing Ord. Enoxaparin Sodium (Enoxaparin Sodium 40 Mg/0.4 Ml Syringe) 40 mg SUBCUT Q24H [facility] Last Admin: 05/25/21 22:03 Dose: 40 mg Documented by: CAPRICE Fluoxetine HCl (Fluoxetine Hcl 20 Mg Capsule) 20 mg PO DAILY [facility] Last Admin: 05/26/21 07:55 Dose: 20 mg Documented by: AMY Gabapentin (Gabapentin 300 Mg Capsule) 300 mg PO TID [facility] Last Admin: 05/26/21 07:57 Dose: 300 mg Documented by: AMY Glucose (Glucose Gel 15 Gm Gel..Gram.) 15 gm PO Q15M PRN; Protocol PRN Reason: per Hypoglycemia Standing Ord. Insulin Glargine (Insulin Glargine,Hum.Rec.Anlog 100 Unit/Ml 10 Ml Vial) 20 unit SUBCUT BEDTIME [facility] Last Admin: 05/25/21 22:01 Dose: 20 unit Documented by: CAPRICE Insulin Human Lispro (Insulin Lispro 100 Unit/Ml 3 Ml Vial) 0 unit SUBCUT QIDACHS [facility]; Protocol Last Admin: 05/26/21 07:55 Dose: 2 unit Documented by: AMY Losartan Potassium (Losartan Potassium 50 Mg Tablet) 100 mg PO DAILY [facility]; Protocol Last Admin: 05/26/21 07:54 Dose: 100 mg Documented by: AMY Melatonin (Melatonin 3 Mg Tablet) 6 mg PO BEDTIME PRN PRN Reason: Insomnia Metoprolol Succinate (Metoprolol Succinate Er 25 Mg Tab.Er.24h) 25 mg PO DAILY [facility]; Protocol Last Admin: 05/26/21 07:54 Dose: 25 mg Documented by: AMY Morphine Sulfate (Morphine Sulfate 2 Mg/Ml Cartridge) 1 mg IVPUSH Q4H PRN; Protocol PRN Reason: pain/SOb Last Admin: 05/26/21 05:13 Dose: 1 mg Documented by: WARREN Pharmacy Consult (Consult Rx Perform Med Rec) 1 each MISCELLANE ONCE PRN PRN Reason: Consult order Pravastatin Sodium (Pravastatin Sodium 40 Mg Tablet) 40 mg PO DAILY [facility] Last Admin: 05/26/21 09:52 Dose: 40 mg Documented by: AMBER Senna (Sennosides 8.6 Mg Tablet) 17.2 mg PO BEDTIME PRN PRN Reason: Constipation Sodium Chloride (0.9 % Sodium Chloride Flush 3 Ml Syringe) 3 ml IVFLUSH QSHIFT [facility] Last Admin: 05/26/21 07:57 Dose: 3 ml Documented by: AMY Tamsulosin HCl (Tamsulosin Hcl 0.4 Mg Capsule) 0.4 mg PO DAILY [facility] Last Admin: 05/26/21 07:58 Dose: 0.4 mg Documented by: AMY Tizanidine HCl (Tizanidine Hcl 4 Mg Tablet) 2 mg PO BID PRN PRN Reason: for muscle spasm Last Admin: 05/25/21 09:42 Dose: 2 mg Documented by: SCOC Labs CBC & Chem 7: 05/25/21 06:42 05/25/21 06:42 Labs: Laboratory Results - last 24 hr 05/25/21 05/25/21 05/25/21 13:08 18:15 21:52 POC Glucose 220 H 271 H 308 H 05/26/21 07:13 POC Glucose 183 H Microbiology Microbiology Results: Microbiology 05/24/21 16:59 Blood Culture - Preliminary Blood - Venous No growth after 24 hours. 05/24/21 16:42 Blood Culture - Preliminary Blood - Venous No growth after 24 hours. Assessment and Plan (1) Respiratory failure: Status: Acute (2) COVID-19: Status: Acute Assessment and Plan: 80-year-old male with a past medical history of hypertension, hyperlipidemia, diabetes, BPH, osteoarthritis, generalized anxiety, depression, opiate dependence on Suboxone; presented to the hospital today with a chief complaint of shortness of breath.? ? Noted to have acute hypoxic respiratory failure in the setting of COVID-19 pneumonia.? Admitted for further management.? Acute, severe hypoxic respiratory failure, on high flow -continue high flow -Dexametasone -Baricitinib to be ordered by Pulmonology COVID-19 pneumonia:? Will keep the patient on ceftriaxone azithromycin empirically.? Id consult for further recommendations.? Diabetes:? Lantus, SSI, and Diabetes diet History of anxiety / depression: Continue home clonazepam, clonidine, fluoxetine, gabapentin. History of opiate dependence: Patient on Suboxone. ? addiction Medicine following DVT prophylaxis:? Lovenox Code status:? Full Code Quality Stroke Does the patient have a stroke diagnosis?: No VTE Prior VTE?: No VTE Risk Level:: Medical - moderate - high VTE Device Contraindication: Treatment Not Indicated VTE Drug Contraindication: N/A - Med Ordered
[2021-05-26 12:03] LABS: Glucose, Whole Blood 207 mg/dL (60-115)
--- NOTE | 2021-05-26 16:11 | PC.NURSE ---
report given to receiving RN Lorena. pt will be transported to room 460 by shed workers supervisor. pt alert, oriented to self and situation. vss.
[2021-05-26 17:15] LABS: Glucose, Whole Blood 201 mg/dL (60-115)
[2021-05-26] MEDS: Acetaminophen 325 MG TABLET 650 MG PO (17:27)
[2021-05-26] MEDS: Insulin Glargine,Hum.rec.anlog 100 UNIT/ML 10 ML VIAL 20 UNIT SUBCUT (21:18)
[2021-05-26 21:19] LABS: Glucose, Whole Blood 190 mg/dL (60-115)
[2021-05-26] MEDS: Enoxaparin Sodium 40 MG/0.4 ML SYRINGE SUBCUT (21:19)
[2021-05-27] VITALS (15 sets, daily range): BP systolic 115–165; BP diastolic 59–78; PULSE 45–85; RESP 8–20; TEMP 36.4–37.5; O2SAT 88–98
[2021-05-27] MEDS: Morphine Sulfate 2 MG/ML CARTRIDGE 1 MG IVPUSH (06:43)
[2021-05-27 07:39] LABS: Glucose, Whole Blood 185 mg/dL (60-115)
[2021-05-27] MEDS: Insulin Lispro 100 UNIT/ML 3 ML VIAL SUBCUT ×4 (08:46→21:07)
[2021-05-27] MEDS: Metoprolol Succinate ER 25 MG TAB.ER.24H PO (08:47)
[2021-05-27] MEDS: dexAMETHasone sod phosphate 4 MG/ML VIAL 12 MG IVPUSH (08:47)
[2021-05-27] MEDS: clonazePAM 1 MG TABLET PO ×2 (08:47→21:06)
[2021-05-27] MEDS: Tamsulosin HCL 0.4 MG CAPSULE PO (08:47)
[2021-05-27] MEDS: Pravastatin Sodium 40 MG TABLET PO (08:47)
[2021-05-27] MEDS: FLUoxetine HCl 20 MG CAPSULE PO (08:47)
[2021-05-27] MEDS: Losartan Potassium 50 MG TABLET 100 MG PO (08:47)
[2021-05-27] MEDS: 0.9 % Sodium Chloride Flush 3 ML SYRINGE IVFLUSH ×3 (08:47→21:12)
[2021-05-27] MEDS: Gabapentin 300 MG CAPSULE PO ×3 (08:47→21:06)
--- NOTE | 2021-05-27 09:51 | PM.EVENT ---
Event Note Date of Service: 05/27/21 Event Note: Consult for Addiction Service received on 05/25/21. However, patient had long-standing dose of Suboxone patch for pain, prescribed from [address] Suggestion to provider that he continue to wear this. Not considered opioid use disorder, but rather chronic pain management. This was conveyed to provider Dr. Edouard Quinn, via secure electronic messaging system. Addiction consult service will sign off at this time, as this is not considered a substance use disorder concerned. If any concerns do arise, please do not hesitate to contact us again.
[2021-05-27 11:39] LABS: Glucose, Whole Blood 193 mg/dL (60-115)
--- NOTE | 2021-05-27 11:46 | P.PNIM_ITS ---
Subjective Subjective Date of Service: 05/27/21 Interval History: F/u on covid PNA with resp failure, looks clinically well but signficantly remains hypoxic and requiring high flow O2 still Review of Systems no fever no cough Physical Exam Vital Signs: Vital Signs: Last Vital Signs Temp 97.8 F 05/27/21 08:00 Pulse 67 05/27/21 08:00 Resp 16 05/27/21 11:22 BP 115/59 L 05/27/21 08:00 Pulse Ox 94 05/27/21 08:49 BMI result Body Mass Index 28.3 Const: Other: General: AO X 3, no acute distress Resp: normal resp effort CVS: S1,S2,RRR GI: +BS, NT, no distention Skin: No rash Neuro: motor grossly intact Psych: appropriate affect Objective Data Active Medications Acetaminophen (Acetaminophen 325 Mg Tablet) 650 mg PO Q6H PRN PRN Reason: Pain, Mild (Pain Scale 1-3) Last Admin: 05/26/21 17:27 Dose: 650 mg Documented by: JACINTO Baricitinib (Baricitinib 2 Mg Tablet) 4 mg PO Q24H [facility] Stop: 06/08/21 09:01 Last Admin: 05/27/21 08:46 Dose: 4 mg Documented by: CHIKIS Clonazepam (Clonazepam 1 Mg Tablet) 1 mg PO BID [facility] Last Admin: 05/27/21 08:47 Dose: 1 mg Documented by: CHIKIS Dexamethasone Sodium Phosphate (Dexamethasone Sod Phosphate 4 Mg/Ml Vial) 12 mg IVPUSH DAILY [facility] Last Admin: 05/27/21 08:47 Dose: 12 mg Documented by: CHIKIS Dextrose (Dextrose 50 % 25 Gm/50 Ml Syringe) 25 gm IVPUSH Q15M PRN; Protocol PRN Reason: per Hypoglycemia Standing Ord. Enoxaparin Sodium (Enoxaparin Sodium 40 Mg/0.4 Ml Syringe) 40 mg SUBCUT Q24H [facility] Last Admin: 05/26/21 21:19 Dose: 40 mg Documented by: GILA Fluoxetine HCl (Fluoxetine Hcl 20 Mg Capsule) 20 mg PO DAILY [facility] Last Admin: 05/27/21 08:47 Dose: 20 mg Documented by: CHIKIS Gabapentin (Gabapentin 300 Mg Capsule) 300 mg PO TID [facility] Last Admin: 05/27/21 08:47 Dose: 300 mg Documented by: CHIKIS Glucose (Glucose Gel 15 Gm Gel..Gram.) 15 gm PO Q15M PRN; Protocol PRN Reason: per Hypoglycemia Standing Ord. Insulin Glargine (Insulin Glargine,Hum.Rec.Anlog 100 Unit/Ml 10 Ml Vial) 20 unit SUBCUT BEDTIME [facility] Last Admin: 05/26/21 21:18 Dose: 20 unit Documented by: GILA Insulin Human Lispro (Insulin Lispro 100 Unit/Ml 3 Ml Vial) 0 unit SUBCUT QIDACHS [facility]; Protocol Last Admin: 05/27/21 08:46 Dose: 2 unit Documented by: CHIKIS Losartan Potassium (Losartan Potassium 50 Mg Tablet) 100 mg PO DAILY [facility]; Protocol Last Admin: 05/27/21 08:47 Dose: 100 mg Documented by: CHIKIS Melatonin (Melatonin 3 Mg Tablet) 6 mg PO BEDTIME PRN PRN Reason: Insomnia Metoprolol Succinate (Metoprolol Succinate Er 25 Mg Tab.Er.24h) 25 mg PO DAILY [facility]; Protocol Last Admin: 05/27/21 08:47 Dose: 25 mg Documented by: CHIKIS Morphine Sulfate (Morphine Sulfate 2 Mg/Ml Cartridge) 1 mg IVPUSH Q4H PRN; Protocol PRN Reason: pain/SOb Last Admin: 05/27/21 06:43 Dose: 1 mg Documented by: GILA Pharmacy Consult (Consult Rx Perform Med Rec) 1 each MISCELLANE ONCE PRN PRN Reason: Consult order Pravastatin Sodium (Pravastatin Sodium 40 Mg Tablet) 40 mg PO DAILY [facility] Last Admin: 05/27/21 08:47 Dose: 40 mg Documented by: CHIKIS Senna (Sennosides 8.6 Mg Tablet) 17.2 mg PO BEDTIME PRN PRN Reason: Constipation Sodium Chloride (0.9 % Sodium Chloride Flush 3 Ml Syringe) [facility] Last Admin: 05/27/21 08:47 Dose: 3 ml Documented by: CHIKIS Tamsulosin HCl (Tamsulosin Hcl 0.4 Mg Capsule) 0.4 mg PO DAILY [facility] Last Admin: 05/27/21 08:47 Dose: 0.4 mg Documented by: CHIKIS Tizanidine HCl (Tizanidine Hcl 4 Mg Tablet) 2 mg PO BID PRN PRN Reason: for muscle spasm Last Admin: 05/25/21 09:42 Dose: 2 mg Documented by: SCOC Labs CBC & Chem 7: 05/25/21 06:42 05/25/21 06:42 Labs: Laboratory Results - last 24 hr 05/26/21 05/26/21 05/26/21 11:53 16:52 21:12 POC Glucose 207 H 201 H 190 H 05/27/21 05/27/21 07:30 11:30 POC Glucose 185 H 193 H Microbiology Microbiology Results: Microbiology 05/24/21 16:59 Blood Culture - Preliminary Blood - Venous No growth after 48 hours. 05/24/21 16:42 Blood Culture - Preliminary Blood - Venous No growth after 48 hours. Assessment and Plan (1) Respiratory failure: Status: Acute (2) COVID-19: Status: Acute Assessment and Plan: 80-year-old male with a past medical history of hypertension, hyperlipidemia, diabetes, BPH, osteoarthritis, generalized anxiety, depression, opiate dependence on Suboxone; presented to the hospital today with a chief complaint of shortness of breath.? ? Noted to have acute hypoxic respiratory failure in the setting of COVID-19 pneumonia.? Admitted for further management.? Acute, severe hypoxic respiratory failure, on high flow -continue high flow and wean as naye -Dexametasone -Baricitinib to be ordered by Pulmonology COVID-19 pneumonia:? No indication for Abx at this Diabetes:? Lantus, SSI, and Diabetes diet History of anxiety / depression: Continue home clonazepam, clonidine, fluoxetin e, gabapentin. History of opiate dependence: Patient on Suboxone. ? addiction Medicine following DVT prophylaxis:? Lovenox Code status:? Full Code Quality Stroke Does the patient have a stroke diagnosis?: No VTE Prior VTE?: No VTE Risk Level:: Medical - moderate - high VTE Device Contraindication: Treatment Not Indicated VTE Drug Contraindication: N/A - Med Ordered
--- NOTE | 2021-05-27 11:46 | MHC.CM.PN ---
Per ROUNDS discussion, Patient is not yet medically cleared for dc (IV Decadron, IV morphine today, high flow O2);Home/resume services is the goal for dc and cM will follow for possible need to adjust the dc plan.
--- NOTE | 2021-05-27 15:44 | P.CNID_ITS ---
History of Present Illness Data of Consult Service Date: 05/27/21 Requesting physician: Edouard Quinn Primary Care Provider: Unknown Physician HPI Reason for consult: COVID He presents with shortness of breath and cough started over last two weeks He has no fever or chills Review of Systems Verdana 4l Review of Systems: Yes all other systems are reviewed and Verdana 4d are negative PMFSH Past Medical History Medical History Arthritis of left knee Arthritis of right knee HTN (hypertension) Right lumbar radiculopathy Family History Family History Mother Hypertension Father No problems noted. Family/Other Diabetes Sister Alzheimers disease Brother Liver disease Brother Alcohol abuse Surgical History Surgical History History of inguinal hernia repair Social History Social History Household Members: None Housing: Apartment Do you presently have visiting nurse or other home services: Yes (twice a day) Alcohol intake: never Patient Tobacco Use Status: Never used Tobacco service: No Current occupational status: unemployed and disabled Current occupation: rt handed Meds Allergies Allergy/AdvReac Type Severity Reaction Status Date / Time canagliflozin [From Allergy Unknown RASH Verified 04/25/21 14:28 INVOKANA] zoster vaccine live Allergy Unknown pruritis Verified 04/25/21 14:28 [Zostavax (PF)] Active Medications: Current Medications Acetaminophen (Acetaminophen 325 Mg Tablet) 650 mg PO Q6H PRN PRN Reason: Pain, Mild (Pain Scale 1-3) Last Admin: 05/26/21 17:27 Dose: 650 mg Documented by: Baricitinib (Baricitinib 2 Mg Tablet) 4 mg PO Q24H ANY Stop: 06/08/21 09:01 Last Admin: 05/27/21 08:46 Dose: 4 mg Documented by: Clonazepam (Clonazepam 1 Mg Tablet) 1 mg PO BID [facility] Last Admin: 05/27/21 08:47 Dose: 1 mg Documented by: Dexamethasone Sodium Phosphate (Dexamethasone Sod Phosphate 4 Mg/Ml Vial) 12 mg IVPUSH DAILY [facility] Last Admin: 05/27/21 08:47 Dose: 12 mg Documented by: Dextrose (Dextrose 50 % 25 Gm/50 Ml Syringe) 25 gm IVPUSH Q15M PRN; Protocol PRN Reason: per Hypoglycemia Standing Ord. Enoxaparin Sodium (Enoxaparin Sodium 40 Mg/0.4 Ml Syringe) 40 mg SUBCUT Q24H [facility] Last Admin: 05/26/21 21:19 Dose: 40 mg Documented by: Fluoxetine HCl (Fluoxetine Hcl 20 Mg Capsule) 20 mg PO DAILY [facility] Last Admin: 05/27/21 08:47 Dose: 20 mg Documented by: Gabapentin (Gabapentin 300 Mg Capsule) 300 mg PO TID [facility] Last Admin: 05/27/21 08:47 Dose: 300 mg Documented by: Glucose (Glucose Gel 15 Gm Gel..Gram.) 15 gm PO Q15M PRN; Protocol PRN Reason: per Hypoglycemia Standing Ord. Insulin Glargine (Insulin Glargine,Hum.Rec.Anlog 100 Unit/Ml 10 Ml Vial) 20 unit SUBCUT BEDTIME [facility] Last Admin: 05/26/21 21:18 Dose: 20 unit Documented by: Insulin Human Lispro (Insulin Lispro 100 Unit/Ml 3 Ml Vial) 0 unit SUBCUT QIDACHS [facility]; Protocol Last Admin: 05/27/21 12:06 Dose: 2 unit Documented by: Losartan Potassium (Losartan Potassium 50 Mg Tablet) 100 mg PO DAILY [facility]; Protocol Last Admin: 05/27/21 08:47 Dose: 100 mg Documented by: Melatonin (Melatonin 3 Mg Tablet) 6 mg PO BEDTIME PRN PRN Reason: Insomnia Metoprolol Succinate (Metoprolol Succinate Er 25 Mg Tab.Er.24h) 25 mg PO DAILY [facility]; Protocol Last Admin: 05/27/21 08:47 Dose: 25 mg Documented by: Morphine Sulfate (Morphine Sulfate 2 Mg/Ml Cartridge) 1 mg IVPUSH Q4H PRN; Protocol PRN Reason: pain/SOb Last Admin: 05/27/21 06:43 Dose: 1 mg Documented by: Pharmacy Consult (Consult Rx Perform Med Rec) 1 each MISCELLANE ONCE PRN PRN Reason: Consult order Pravastatin Sodium (Pravastatin Sodium 40 Mg Tablet) 40 mg PO DAILY [facility] Last Admin: 05/27/21 08:47 Dose: 40 mg Documented by: Senna (Sennosides 8.6 Mg Tablet) 17.2 mg PO BEDTIME PRN PRN Reason: Constipation Sodium Chloride (0.9 % Sodium Chloride Flush 3 Ml Syringe) 3 ml IVFLUSH QSHIFT [facility] Last Admin: 05/27/21 08:47 Dose: 3 ml Documented by: Tamsulosin HCl (Tamsulosin Hcl 0.4 Mg Capsule) 0.4 mg PO DAILY [facility] Last Admin: 05/27/21 08:47 Dose: 0.4 mg Documented by: Tizanidine HCl (Tizanidine Hcl 4 Mg Tablet) 2 mg PO BID PRN PRN Reason: for muscle spasm Last Admin: 05/25/21 09:42 Dose: 2 mg Documented by: Home Medications Medication Instructions Recorded Confirmed Last Taken Type cholecalciferol 25 mcg PO DAILY 05/24/21 05/24/21 05/24/21 History (vitamin D3) 25 mcg (1,000 unit) tablet (Vitamin D3) gabapentin 300 mg 300 mg PO TID 05/24/21 05/24/21 05/24/21 History capsule hydrocodone 10 1 tab PO QID PRN 05/24/21 05/24/21 Unknown History mg-acetaminophen 325 mg tablet metformin 1,000 1,000 mg PO 05/24/21 05/24/21 05/24/21 History mg tablet BIDWM silver 1 appl TOPICAL 05/24/21 05/24/21 Unknown History sulfadiazine 1 % TID topical cream Physical Exam Verdana 4l Vital Signs: Verdana 4d Verdana 4d Vital Signs: Verdana 4d Verdana 4Bd Last Vital Signs Verdana 4d Field Rep New 4d Field Rep New 4d Temp 97.9 F 05/27/21 15:41 Field Rep New 4d Pulse 56 05/27/21 15:41 Field Rep New 4d Resp 18 05/27/21 15:41 BP 165/69 H 05/27/21 15:41 Pulse Ox 94 05/27/21 15:41 BMI result Body Mass Index 28.3 HENMT: Head: Yes normal to inspection Mouth: Normal oral and palatal mucosa present Resp: Effort & Inspection: normal respiratory effort Cardio: Rate: regular rate Rhythm: regular rhythm Skin: General skin exam: no rashes or lesions noted Results Labs CBC & Chem 7: 06/05/21 06:02 06/05/21 06:03 Microbiology Microbiology Results: Microbiology 05/24/21 16:59 Blood - Venous Blood Culture - Preliminary No growth after 48 hours. 05/24/21 16:42 Blood - Venous Blood Culture - Preliminary No growth after 48 hours. Assessment and Plan (1) Acute respiratory failure with hypoxia: Status: Acute He is on high flow oxygen He has twelve days of symptoms He has no signs of opportunistic infection Plan Would continue baricitinib per Pulmonary Oxygen as needed No Remdesivir as already twelve days
[2021-05-27 16:14] LABS: Glucose, Whole Blood 209 mg/dL (60-115)
[2021-05-27 20:06] LABS: Glucose, Whole Blood 239 mg/dL (60-115)
[2021-05-27] MEDS: Insulin Glargine,Hum.rec.anlog 100 UNIT/ML 10 ML VIAL 20 UNIT SUBCUT (21:06)
[2021-05-27] MEDS: Enoxaparin Sodium 40 MG/0.4 ML SYRINGE SUBCUT (21:07)
[2021-05-28] VITALS (12 sets, daily range): BP systolic 140–173; BP diastolic 64–82; PULSE 50–67; RESP 18–20; TEMP 36.1–37.1; O2SAT 86–98
[2021-05-28] MEDS: Dextrose 5 % and 0.45 % NaCl 1,000 ML 50 ML IVCONT (01:05)
--- NOTE | 2021-05-28 02:24 | PC.NURSE ---
1:1 sitter with patient to ensure the high flow is staying on. Desats quickly to the 70s when off. Pt became agitated and uncooperative around 2330 when sitter left. Pt uncooperative and swinging when trying to place high flow back on. Pt desatted to the low 70s. Dr. Muhammad contacted, soft limb restraints ordered for the safety of the patients oxygen requirement. Pt stated, I am not a prisoner take these off. I will call the police. I will be out of here tomorrow. Pt now sleeping and tolerating high flow + NRB, satting 94%. Pt assessed every hour, vitals being taken Q2. Will continue to monitor.
[2021-05-28 08:17] LABS: Glucose, Whole Blood 161 mg/dL (60-115)
[2021-05-28] MEDS: 0.9 % Sodium Chloride Flush 3 ML SYRINGE IVFLUSH ×3 (08:46→22:11)
[2021-05-28] MEDS: dexAMETHasone sod phosphate 4 MG/ML VIAL 12 MG IVPUSH (08:46)
[2021-05-28] MEDS: Insulin Lispro 100 UNIT/ML 3 ML VIAL SUBCUT ×4 (08:46→22:10)
[2021-05-28] MEDS: clonazePAM 1 MG TABLET PO ×2 (08:47→22:10)
[2021-05-28] MEDS: FLUoxetine HCl 20 MG CAPSULE PO (08:47)
[2021-05-28] MEDS: Metoprolol Succinate ER 25 MG TAB.ER.24H PO (08:47)
[2021-05-28] MEDS: Losartan Potassium 50 MG TABLET 100 MG PO (08:47)
[2021-05-28] MEDS: Tamsulosin HCL 0.4 MG CAPSULE PO (08:47)
[2021-05-28] MEDS: Gabapentin 300 MG CAPSULE PO ×3 (08:47→22:10)
[2021-05-28] MEDS: Pravastatin Sodium 40 MG TABLET PO (08:47)
[2021-05-28 11:25] LABS: Glucose, Whole Blood 231 mg/dL (60-115)
--- NOTE | 2021-05-28 12:36 | P.PNIM_ITS ---
Subjective Subjective Date of Service: 05/28/21 Interval History: f/u covid hypoxia, peristent hypoxia, was very agitated overnight and was physically restrained from removing high flow O2 and prevent fatal hypoxia Review of Systems no fever no cough Physical Exam Vital Signs: Vital Signs: Last Vital Signs Temp 97.6 F 05/28/21 11:54 Pulse 60 05/28/21 11:54 Resp 18 05/28/21 11:54 BP 160/82 H 05/28/21 11:54 Pulse Ox 92 05/28/21 11:54 BMI result Body Mass Index 28.3 Const: Other: General: AO X 2, no acute distress Resp: normal resp effort CVS: S1,S2,RRR GI: +BS, NT, no distention Skin: No rash Neuro: motor grossly intact Psych: appropriate affect Objective Data Active Medications Acetaminophen (Acetaminophen 325 Mg Tablet) 650 mg PO Q6H PRN PRN Reason: Pain, Mild (Pain Scale 1-3) Last Admin: 05/26/21 17:27 Dose: 650 mg Documented by: JACINTO Baricitinib (Baricitinib 2 Mg Tablet) 4 mg PO Q24H [facility] Stop: 06/08/21 09:01 Last Admin: 05/28/21 08:47 Dose: 4 mg Documented by: CHIKIS Clonazepam (Clonazepam 1 Mg Tablet) 1 mg PO BID [facility] Last Admin: 05/28/21 08:47 Dose: 1 mg Documented by: CHIKIS Dexamethasone Sodium Phosphate (Dexamethasone Sod Phosphate 4 Mg/Ml Vial) 12 mg IVPUSH DAILY [facility] Last Admin: 05/28/21 08:46 Dose: 12 mg Documented by: CHIKIS Dextrose (Dextrose 50 % 25 Gm/50 Ml Syringe) 25 gm IVPUSH Q15M PRN; Protocol PRN Reason: per Hypoglycemia Standing Ord. Enoxaparin Sodium (Enoxaparin Sodium 40 Mg/0.4 Ml Syringe) 40 mg SUBCUT Q24H [facility] Last Admin: 05/27/21 21:07 Dose: 40 mg Documented by: JESUS Fluoxetine HCl (Fluoxetine Hcl 20 Mg Capsule) 20 mg PO DAILY [facility] Last Admin: 05/28/21 08:47 Dose: 20 mg Documented by: CHIKIS Gabapentin (Gabapentin 300 Mg Capsule) 300 mg PO TID [facility] Last Admin: 05/28/21 08:47 Dose: 300 mg Documented by: CHIKIS Glucose (Glucose Gel 15 Gm Gel..Gram.) 15 gm PO Q15M PRN; Protocol PRN Reason: per Hypoglycemia Standing Ord. Dextrose/Sodium Chloride (D51/2ns) 1,000 mls @ 50 mls/hr IVCONT .Q20H [facility] Last Infusion: 05/28/21 08:45 Dose: 0 mls/hr Documented by: CHIKIS Insulin Glargine (Insulin Glargine,Hum.Rec.Anlog 100 Unit/Ml 10 Ml Vial) 20 unit SUBCUT BEDTIME [facility] Last Admin: 05/27/21 21:06 Dose: 20 unit Documented by: JESUS Insulin Human Lispro (Insulin Lispro 100 Unit/Ml 3 Ml Vial) 0 unit SUBCUT QIDACHS [facility]; Protocol Last Admin: 05/28/21 12:09 Dose: 4 unit Documented by: CHIKIS Losartan Potassium (Losartan Potassium 50 Mg Tablet) 100 mg PO DAILY [facility]; Protocol Last Admin: 05/28/21 08:47 Dose: 100 mg Documented by: CHIKIS Melatonin (Melatonin 3 Mg Tablet) 6 mg PO BEDTIME PRN PRN Reason: Insomnia Metoprolol Succinate (Metoprolol Succinate Er 25 Mg Tab.Er.24h) 25 mg PO DAILY [facility]; Protocol Last Admin: 05/28/21 08:47 Dose: 25 mg Documented by: CHIKIS Morphine Sulfate (Morphine Sulfate 2 Mg/Ml Cartridge) 1 mg IVPUSH Q4H PRN; Protocol PRN Reason: pain/SOb Last Admin: 05/27/21 06:43 Dose: 1 mg Documented by: GILA Pharmacy Consult (Consult Rx Perform Med Rec) 1 each MISCELLANE ONCE PRN PRN Reason: Consult order Pravastatin Sodium (Pravastatin Sodium 40 Mg Tablet) 40 mg PO DAILY [facility] Last Admin: 05/28/21 08:47 Dose: 40 mg Documented by: CHIKIS Senna (Sennosides 8.6 Mg Tablet) 17.2 mg PO BEDTIME PRN PRN Reason: Constipation Sodium Chloride (0.9 % Sodium Chloride Flush 3 Ml Syringe) 3 ml IVFLUSH QSHIFT [facility] Last Admin: 05/28/21 08:46 Dose: 3 ml Documented by: CHIKIS Tamsulosin HCl (Tamsulosin Hcl 0.4 Mg Capsule) 0.4 mg PO DAILY ANY Last Admin: 05/28/21 08:47 Dose: 0.4 mg Documented by: DOBROB Tizanidine HCl (Tizanidine Hcl 4 Mg Tablet) 2 mg PO BID PRN PRN Reason: for muscle spasm Last Admin: 05/25/21 09:42 Dose: 2 mg Documented by: SCOC Labs CBC & Chem 7: 05/25/21 06:42 05/25/21 06:42 Labs: Laboratory Results - last 24 hr 05/27/21 05/27/21 05/28/21 15:42 19:45 08:09 POC Glucose 209 H 239 H 161 H 05/28/21 11:14 POC Glucose 231 H Assessment and Plan (1) Respiratory failure: Status: Acute (2) COVID-19: Status: Acute Assessment and Plan: 80-year-old male with a past medical history of hypertension, hyperlipidemia, diabetes, BPH, osteoarthritis, generalized anxiety, depression, opiate dependence on Suboxone; presented to the hospital today with a chief complaint of shortness of breath.? ? Noted to have acute hypoxic respiratory failure in the setting of COVID-19 pneumonia.? Admitted for further management.? Acute, severe hypoxic respiratory failure, on high flow -continue high flow and wean as naye -Dexametasone -Baricitinib to be ordered by Pulmonology -no indication for Remdesevir COVID-19 pneumonia:? No indication for Abx at this Diabetes:? Lantus, SSI, and Diabetes diet History of anxiety / depression: Continue home clonazepam, clonidine, fluoxetine, gabapentin. History of opiate dependence: Patient on Suboxone. ? addiction Medicine following anxiety agitation--try low dose seroquel PRN DVT prophylaxis:? Lovenox Code status:? Full Code Quality Stroke Does the patient have a stroke diagnosis?: No VTE Prior VTE?: No VTE Risk Level:: Medical - moderate - high VTE Device Contraindication: Treatment Not Indicated VTE Drug Contraindication: N/A - Med Ordered
[2021-05-28 16:53] LABS: Glucose, Whole Blood 297 mg/dL (60-115)
[2021-05-28 20:19] LABS: Glucose, Whole Blood 205 mg/dL (60-115)
[2021-05-28] MEDS: Melatonin 3 MG TABLET 6 MG PO (22:08)
[2021-05-28] MEDS: Enoxaparin Sodium 40 MG/0.4 ML SYRINGE SUBCUT (22:10)
[2021-05-28] MEDS: Insulin Glargine,Hum.rec.anlog 100 UNIT/ML 10 ML VIAL 20 UNIT SUBCUT (22:10)
[2021-05-29] VITALS (9 sets, daily range): BP systolic 103–148; BP diastolic 53–67; PULSE 53–77; RESP 18–24; TEMP 36.3–38.2; O2SAT 86–94
[2021-05-29 07:34] LABS: Glucose, Whole Blood 104 mg/dL (60-115)
[2021-05-29] MEDS: dexAMETHasone sod phosphate 4 MG/ML VIAL 12 MG IVPUSH (10:02)
[2021-05-29] MEDS: Pravastatin Sodium 40 MG TABLET PO (10:02)
[2021-05-29] MEDS: Tamsulosin HCL 0.4 MG CAPSULE PO (10:03)
[2021-05-29] MEDS: Gabapentin 300 MG CAPSULE PO ×3 (10:03→21:13)
[2021-05-29] MEDS: FLUoxetine HCl 20 MG CAPSULE PO (10:03)
[2021-05-29] MEDS: clonazePAM 1 MG TABLET PO ×2 (10:03→21:13)
[2021-05-29] MEDS: Metoprolol Succinate ER 25 MG TAB.ER.24H PO (10:03)
[2021-05-29] MEDS: 0.9 % Sodium Chloride Flush 3 ML SYRINGE IVFLUSH ×3 (10:03→21:14)
[2021-05-29] MEDS: Losartan Potassium 50 MG TABLET 100 MG PO (10:03)
--- NOTE | 2021-05-29 10:19 | P.PNIM_ITS ---
Subjective Subjective Date of Service: 05/30/21 Interval History: f/u covid hypoxia, peristent hypoxia, was very agitated overnight and was physically restrained from removing high flow O2 and prevent fatal hypoxia Review of Systems no fever no cough Physical Exam Vital Signs: Vital Signs: Last Vital Signs Temp 99.0 F 05/29/21 07:45 Pulse 62 05/29/21 07:45 Resp 22 H 05/29/21 08:42 BP 148/66 H 05/29/21 07:45 Pulse Ox 93 05/29/21 07:45 BMI result Body Mass Index 28.3 Const: Other: General: AO X 2, no acute distress Resp: normal resp effort CVS: S1,S2,RRR GI: +BS, NT, no distention Skin: No rash Neuro: motor grossly intact Psych: appropriate affect Objective Data Active Medications Acetaminophen (Acetaminophen 325 Mg Tablet) 650 mg PO Q6H PRN PRN Reason: Pain, Mild (Pain Scale 1-3) Last Admin: 05/26/21 17:27 Dose: 650 mg Documented by: JACINTO Baricitinib (Baricitinib 2 Mg Tablet) 4 mg PO Q24H [facility] Stop: 06/08/21 09:01 Last Admin: 05/29/21 10:02 Dose: 4 mg Documented by: CHIKIS Clonazepam (Clonazepam 1 Mg Tablet) 1 mg PO BID [facility] Last Admin: 05/29/21 10:03 Dose: 1 mg Documented by: CHIKIS Dexamethasone Sodium Phosphate (Dexamethasone Sod Phosphate 4 Mg/Ml Vial) 12 mg IVPUSH DAILY [facility] Last Admin: 05/29/21 10:02 Dose: 12 mg Documented by: CHIKIS Dextrose (Dextrose 50 % 25 Gm/50 Ml Syringe) 25 gm IVPUSH Q15M PRN; Protocol PRN Reason: per Hypoglycemia Standing Ord. Enoxaparin Sodium (Enoxaparin Sodium 40 Mg/0.4 Ml Syringe) 40 mg SUBCUT Q24H [facility] Last Admin: 05/28/21 22:10 Dose: 40 mg Documented by: JHONATAN Fluoxetine HCl (Fluoxetine Hcl 20 Mg Capsule) 20 mg PO DAILY [facility] Last Admin: 05/29/21 10:03 Dose: 20 mg Documented by: CHIKIS Gabapentin (Gabapentin 300 Mg Capsule) 300 mg PO TID [facility] Last Admin: 05/29/21 10:03 Dose: 300 mg Documented by: CHIKIS Glucose (Glucose Gel 15 Gm Gel..Gram.) 15 gm PO Q15M PRN; Protocol PRN Reason: per Hypoglycemia Standing Ord. Dextrose/Sodium Chloride (D51/2ns) 1,000 mls @ 50 mls/hr IVCONT .Q20H [facility] Last Admin: 05/28/21 22:14 Dose: Not Given Documented by: JHONATAN Non-Admin Reason: dc per previous shift Insulin Glargine (Insulin Glargine,Hum.Rec.Anlog 100 Unit/Ml 10 Ml Vial) 20 unit SUBCUT BEDTIME [facility] Last Admin: 05/28/21 22:10 Dose: 20 unit Documented by: JHONATAN Insulin Human Lispro (Insulin Lispro 100 Unit/Ml 3 Ml Vial) 0 unit SUBCUT QIDACHS [facility]; Protocol Last Admin: 05/29/21 07:36 Dose: Not Given Documented by: CHIKIS Non-Admin Reason: No Insulin Coverage Losartan Potassium (Losartan Potassium 50 Mg Tablet) 100 mg PO DAILY [facility]; Protocol Last Admin: 05/29/21 10:03 Dose: 100 mg Documented by: CHIKIS Melatonin (Melatonin 3 Mg Tablet) 6 mg PO BEDTIME PRN PRN Reason: Insomnia Last Admin: 05/28/21 22:08 Dose: 6 mg Documented by: JHONATAN Metoprolol Succinate (Metoprolol Succinate Er 25 Mg Tab.Er.24h) 25 mg PO DAILY [facility]; Protocol Last Admin: 05/29/21 10:03 Dose: 25 mg Documented by: CHIKIS Morphine Sulfate (Morphine Sulfate 2 Mg/Ml Cartridge) 1 mg IVPUSH Q4H PRN; Protocol PRN Reason: pain/SOb Last Admin: 05/27/21 06:43 Dose: 1 mg Documented by: GILA Pharmacy Consult (Consult Rx Perform Med Rec) 1 each MISCELLANE ONCE PRN PRN Reason: Consult order Pravastatin Sodium (Pravastatin Sodium 40 Mg Tablet) 40 mg PO DAILY [facility] Last Admin: 05/29/21 10:02 Dose: 40 mg Documented by: CHIKIS Senna (Sennosides 8.6 Mg Tablet) 17.2 mg PO BEDTIME PRN PRN Reason: Constipation Sodium Chloride (0.9 % Sodium Chloride Flush 3 Ml Syringe) 3 ml IVFLUSH QSHIFT [facility] Last Admin: 05/29/21 10:03 Dose: 3 ml Documented by: DOBROB Tamsulosin HCl (Tamsulosin Hcl 0.4 Mg Capsule) 0.4 mg PO DAILY [facility] Last Admin: 05/29/21 10:03 Dose: 0.4 mg Documented by: DOBROB Tizanidine HCl (Tizanidine Hcl 4 Mg Tablet) 2 mg PO BID PRN PRN Reason: for muscle spasm Last Admin: 05/25/21 09:42 Dose: 2 mg Documented by: SCOC Labs CBC & Chem 7: 05/25/21 06:42 05/25/21 06:42 Labs: Laboratory Results - last 24 hr 05/28/21 05/28/21 05/28/21 11:14 16:43 20:10 POC Glucose 231 H 297 H 205 H 05/29/21 07:27 POC Glucose 104 Assessment and Plan (1) Respiratory failure: Status: Acute (2) COVID-19: Status: Acute Assessment and Plan: 80-year-old male with a past medical history of hypertension, hyperlipidemia, diabetes, BPH, osteoarthritis, generalized anxiety, depression, opiate dependence on Suboxone; presented to the hospital today with a chief complaint of shortness of breath.? ? Noted to have acute hypoxic respiratory failure in the setting of COVID-19 pneumonia.? Admitted for further management.? Acute, severe hypoxic respiratory failure, on high flow -he has been weaned to nasal canula and seems to be doing better - continue Dexametasone to up to 10 days -Baricitinib to be ordered by Pulmonology, for 14 days or until better -no indication for Remdesevir COVID-19 pneumonia:? No indication for Abx at this Diabetes:? Lantus, SSI, and Diabetes diet History of anxiety / depression: Continue home clonazepam, clonidine, fluoxetine, gabapentin. History of opiate dependence: Patient on Suboxone. ? addiction Medicine following anxiety agitation--try low dose seroquel PRN updating family DVT prophylaxis:? Lovenox Code status:? Full Code Quality Stroke Does the patient have a stroke diagnosis?: No VTE Prior VTE?: No VTE Risk Level:: Medical - moderate - high VTE Device Contraindication: Treatment Not Indicated VTE Drug Contraindication: N/A - Med Ordered
[2021-05-29 11:12] LABS: Glucose, Whole Blood 156 mg/dL (60-115)
[2021-05-29 16:55] LABS: Glucose, Whole Blood 242 mg/dL (60-115)
[2021-05-29] MEDS: Insulin Lispro 100 UNIT/ML 3 ML VIAL SUBCUT ×2 (17:33→21:13)
[2021-05-29 20:37] LABS: Glucose, Whole Blood 310 mg/dL (60-115)
[2021-05-29] MEDS: Melatonin 3 MG TABLET 6 MG PO (21:13)
[2021-05-29] MEDS: Enoxaparin Sodium 40 MG/0.4 ML SYRINGE SUBCUT (21:13)
[2021-05-29] MEDS: Insulin Glargine,Hum.rec.anlog 100 UNIT/ML 10 ML VIAL 20 UNIT SUBCUT (21:13)
[2021-05-30] VITALS (12 sets, daily range): BP systolic 109–145; BP diastolic 50–73; PULSE 49–77; RESP 17–20; TEMP 36.2–37.4; O2SAT 86–99
[2021-05-30 07:28] LABS: Glucose, Whole Blood 145 mg/dL (60-115)
[2021-05-30] MEDS: 0.9 % Sodium Chloride Flush 3 ML SYRINGE IVFLUSH ×3 (09:11→21:51)
[2021-05-30] MEDS: Metoprolol Succinate ER 25 MG TAB.ER.24H PO (09:12)
[2021-05-30] MEDS: FLUoxetine HCl 20 MG CAPSULE PO (09:13)
[2021-05-30] MEDS: Losartan Potassium 50 MG TABLET 100 MG PO (09:13)
[2021-05-30] MEDS: Pravastatin Sodium 40 MG TABLET PO (09:13)
[2021-05-30] MEDS: dexAMETHasone sod phosphate 4 MG/ML VIAL 12 MG IVPUSH (09:13)
[2021-05-30] MEDS: Tamsulosin HCL 0.4 MG CAPSULE PO (09:13)
[2021-05-30] MEDS: Gabapentin 300 MG CAPSULE PO ×3 (09:13→21:52)
[2021-05-30 11:10] LABS: Glucose, Whole Blood 192 mg/dL (60-115)
--- NOTE | 2021-05-30 11:36 | P.PNIM_ITS ---
Subjective Subjective Date of Service: 05/30/21 Interval History: f/u covid hypoxia, remains hypoxic on high flow, sating ok, wants to go home, he does understand undersatnd gravity of his situation. Review of Systems no fever no cough Physical Exam Vital Signs: Vital Signs: Last Vital Signs Temp 99.3 F 05/30/21 11:21 Pulse 59 05/30/21 11:21 Resp 20 05/30/21 11:21 BP 145/71 H 05/30/21 11:21 Pulse Ox 95 05/30/21 11:21 BMI result Body Mass Index 28.3 Const: Other: General: AO X 2, no acute distress Resp: normal resp effort CVS: S1,S2,RRR GI: +BS, NT, no distention Skin: No rash Neuro: motor grossly intact Psych: appropriate affect Objective Data Active Medications Acetaminophen (Acetaminophen 325 Mg Tablet) 650 mg PO Q6H PRN PRN Reason: Pain, Mild (Pain Scale 1-3) Last Admin: 05/26/21 17:27 Dose: 650 mg Documented by: JACINTO Baricitinib (Baricitinib 2 Mg Tablet) 4 mg PO Q24H [facility] Stop: 06/08/21 09:01 Last Admin: 05/30/21 09:12 Dose: 4 mg Documented by: YAZMIN Dexamethasone Sodium Phosphate (Dexamethasone Sod Phosphate 4 Mg/Ml Vial) 12 mg IVPUSH DAILY [facility] Last Admin: 05/30/21 09:13 Dose: 12 mg Documented by: YAZMIN Dextrose (Dextrose 50 % 25 Gm/50 Ml Syringe) 25 gm IVPUSH Q15M PRN; Protocol PRN Reason: per Hypoglycemia Standing Ord. Enoxaparin Sodium (Enoxaparin Sodium 40 Mg/0.4 Ml Syringe) 40 mg SUBCUT Q24H [facility] Last Admin: 05/29/21 21:13 Dose: 40 mg Documented by: GILA Fluoxetine HCl (Fluoxetine Hcl 20 Mg Capsule) 20 mg PO DAILY [facility] Last Admin: 05/30/21 09:13 Dose: 20 mg Documented by: YAZMIN Gabapentin (Gabapentin 300 Mg Capsule) 300 mg PO TID [facility] Last Admin: 05/30/21 09:13 Dose: 300 mg Documented by: YAZMIN Glucose (Glucose Gel 15 Gm Gel..Gram.) 15 gm PO Q15M PRN; Protocol PRN Reason: per Hypoglycemia Standing Ord. Insulin Glargine (Insulin Glargine,Hum.Rec.Anlog 100 Unit/Ml 10 Ml Vial) 20 unit SUBCUT BEDTIME [facility] Last Admin: 05/29/21 21:13 Dose: 20 unit Documented by: GILA Insulin Human Lispro (Insulin Lispro 100 Unit/Ml 3 Ml Vial) 0 unit SUBCUT QIDACHS [facility]; Protocol Last Admin: 05/30/21 07:25 Dose: Not Given Documented by: YAZMIN Non-Admin Reason: No Insulin Coverage Losartan Potassium (Losartan Potassium 50 Mg Tablet) 100 mg PO DAILY [facility]; Protocol Last Admin: 05/30/21 09:13 Dose: 100 mg Documented by: YAZMIN Melatonin (Melatonin 3 Mg Tablet) 6 mg PO BEDTIME PRN PRN Reason: Insomnia Last Admin: 05/29/21 21:13 Dose: 6 mg Documented by: GILA Metoprolol Succinate (Metoprolol Succinate Er 25 Mg Tab.Er.24h) 25 mg PO DAILY [facility]; Protocol Last Admin: 05/30/21 09:12 Dose: 25 mg Documented by: YAZMIN Pharmacy Consult (Consult Rx Perform Med Rec) 1 each MISCELLANE ONCE PRN PRN Reason: Consult order Pravastatin Sodium (Pravastatin Sodium 40 Mg Tablet) 40 mg PO DAILY [facility] Last Admin: 05/30/21 09:13 Dose: 40 mg Documented by: YAZMIN Senna (Sennosides 8.6 Mg Tablet) 17.2 mg PO BEDTIME PRN PRN Reason: Constipation Sodium Chloride (0.9 % Sodium Chloride Flush 3 Ml Syringe) 3 ml IVFLUSH QSHIFT [facility] Last Admin: 05/30/21 09:11 Dose: 3 ml Documented by: YAZMIN Tamsulosin HCl (Tamsulosin Hcl 0.4 Mg Capsule) 0.4 mg PO DAILY [facility] Last Admin: 05/30/21 09:13 Dose: 0.4 mg Documented by: YAZMIN Tizanidine HCl (Tizanidine Hcl 4 Mg Tablet) 2 mg PO BID PRN PRN Reason: for muscle spasm Last Admin: 05/25/21 09:42 Dose: 2 mg Documented by: JOSEOC Labs CBC & Chem 7: 05/25/21 06:42 05/25/21 06:42 Labs: Laboratory Results - last 24 hr 05/29/21 05/29/21 05/30/21 16:48 20:27 07:19 POC Glucose 242 H 310 H 145 H 05/30/21 11:01 POC Glucose 192 H Microbiology Microbiology Results: Microbiology 05/24/21 16:59 Blood Culture - Final Blood - Venous No growth after 5 days. 05/24/21 16:42 Blood Culture - Final Blood - Venous No growth after 5 days. Assessment and Plan (1) Respiratory failure: Status: Acute (2) COVID-19: Status: Acute Assessment and Plan: 80-year-old male with a past medical history of hypertension, hyperlipidemia, diabetes, BPH, osteoarthritis, generalized anxiety, depression, opiate dependence on Suboxone; presented to the hospital today with a chief complaint of shortness of breath.? ? Noted to have acute hypoxic respiratory failure in the setting of COVID-19 pneumonia.? Admitted for further management.? Acute, severe hypoxic respiratory failure, on high flow -Covid 19 PNA--no indication for Abx -continue high flow, sorin sat above 90 - continue Dexametasone to up to 10 days -Baricitinib to be ordered by Pulmonology, for 14 days or until better -no indication for Remdesevir Diabetes:? Lantus, SSI, and Diabetes diet History of anxiety / depression: Continue home clonazepam, clonidine, fluoxetine, gabapentin. History of opiate dependence: Patient on Suboxone. ? addiction Medicine following anxiety agitation--try low dose seroquel PRN updating family on ongoing basis DVT prophylaxis:? Lovenox Code status:? Full Code Quality Stroke Does the patient have a stroke diagnosis?: No VTE Prior VTE?: No VTE Risk Level:: Medical - moderate - high VTE Device Contraindication: Treatment Not Indicated VTE Drug Contraindication: N/A - Med Ordered
[2021-05-30] MEDS: Insulin Lispro 100 UNIT/ML 3 ML VIAL SUBCUT ×4 (11:44→21:52)
[2021-05-30 16:49] LABS: Glucose, Whole Blood 368 mg/dL (60-115)
[2021-05-30 20:10] LABS: Glucose, Whole Blood 387 mg/dL (60-115)
[2021-05-30] MEDS: TiZANidine HCL 4 MG TABLET 2 MG PO (21:51)
[2021-05-30] MEDS: Enoxaparin Sodium 40 MG/0.4 ML SYRINGE SUBCUT (21:51)
[2021-05-30] MEDS: Melatonin 3 MG TABLET 6 MG PO (21:51)
[2021-05-30] MEDS: Insulin Glargine,Hum.rec.anlog 100 UNIT/ML 10 ML VIAL 20 UNIT SUBCUT (21:52)
[2021-05-31] VITALS (11 sets, daily range): BP systolic 133–153; BP diastolic 62–77; PULSE 56–72; RESP 18–20; TEMP 36.4–37.3; O2SAT 89–95
[2021-05-31 07:33] LABS: Glucose, Whole Blood 133 mg/dL (60-115)
[2021-05-31] MEDS: dexAMETHasone sod phosphate 4 MG/ML VIAL 12 MG IVPUSH (09:27)
[2021-05-31] MEDS: 0.9 % Sodium Chloride Flush 3 ML SYRINGE IVFLUSH ×2 (09:27→15:47)
[2021-05-31] MEDS: Losartan Potassium 50 MG TABLET 100 MG PO (09:27)
[2021-05-31] MEDS: Gabapentin 300 MG CAPSULE PO ×3 (09:27→21:29)
[2021-05-31] MEDS: Metoprolol Succinate ER 25 MG TAB.ER.24H PO (09:28)
[2021-05-31] MEDS: Tamsulosin HCL 0.4 MG CAPSULE PO (09:28)
[2021-05-31] MEDS: FLUoxetine HCl 20 MG CAPSULE PO (09:28)
[2021-05-31] MEDS: Pravastatin Sodium 40 MG TABLET PO (09:28)
--- NOTE | 2021-05-31 09:46 | P.PNIM_ITS ---
Subjective Subjective Date of Service: 05/31/21 Interval History: f/u covid hypoxia, remains hypoxic on high flow, he is still struggling with hypoxia even on high flow barely sating 90, he doens't understand his predicament and wants to go home Review of Systems no fever no cough Physical Exam Vital Signs: Vital Signs: Last Vital Signs Temp 97.5 F 05/31/21 07:38 Pulse 72 05/31/21 07:38 Resp 20 05/31/21 07:38 BP 133/62 05/31/21 07:38 Pulse Ox 89 L 05/31/21 07:38 BMI result Body Mass Index 28.3 Const: Other: General: AO X 2, no acute distress Resp: normal resp effort CVS: S1,S2,RRR GI: +BS, NT, no distention Skin: No rash Neuro: motor grossly intact Psych: appropriate affect Objective Data Active Medications Acetaminophen (Acetaminophen 325 Mg Tablet) 650 mg PO Q6H PRN PRN Reason: Pain, Mild (Pain Scale 1-3) Last Admin: 05/26/21 17:27 Dose: 650 mg Documented by: JACINTO Baricitinib (Baricitinib 2 Mg Tablet) 4 mg PO Q24H [facility] Stop: 06/08/21 09:01 Last Admin: 05/31/21 09:27 Dose: 4 mg Documented by: CHIKIS Dexamethasone Sodium Phosphate (Dexamethasone Sod Phosphate 4 Mg/Ml Vial) 12 mg IVPUSH DAILY [facility] Last Admin: 05/31/21 09:27 Dose: 12 mg Documented by: CHIKIS Dextrose (Dextrose 50 % 25 Gm/50 Ml Syringe) 25 gm IVPUSH Q15M PRN; Protocol PRN Reason: per Hypoglycemia Standing Ord. Enoxaparin Sodium (Enoxaparin Sodium 40 Mg/0.4 Ml Syringe) 40 mg SUBCUT Q24H [facility] Last Admin: 05/30/21 21:51 Dose: 40 mg Documented by: GILA Fluoxetine HCl (Fluoxetine Hcl 20 Mg Capsule) 20 mg PO DAILY [facility] Last Admin: 05/31/21 09:28 Dose: 20 mg Documented by: CHIKIS Gabapentin (Gabapentin 300 Mg Capsule) 300 mg PO TID [facility] Last Admin: 05/31/21 09:27 Dose: 300 mg Documented by: CHIKIS Glucose (Glucose Gel 15 Gm Gel..Gram.) 15 gm PO Q15M PRN; Protocol PRN Reason: per Hypoglycemia Standing Ord. Insulin Glargine (Insulin Glargine,Hum.Rec.Anlog 100 Unit/Ml 10 Ml Vial) 20 unit SUBCUT BEDTIME [facility] Last Admin: 05/30/21 21:52 Dose: 20 unit Documented by: GILA Insulin Human Lispro (Insulin Lispro 100 Unit/Ml 3 Ml Vial) 0 unit SUBCUT QIDACHS [facility]; Protocol Last Admin: 05/31/21 08:28 Dose: Not Given Documented by: CHIKIS Non-Admin Reason: No Insulin Coverage Losartan Potassium (Losartan Potassium 50 Mg Tablet) 100 mg PO DAILY [facility]; Protocol Last Admin: 05/31/21 09:27 Dose: 100 mg Documented by: CHIKIS Melatonin (Melatonin 3 Mg Tablet) 6 mg PO BEDTIME PRN PRN Reason: Insomnia Last Admin: 05/30/21 21:51 Dose: 6 mg Documented by: GILA Metoprolol Succinate (Metoprolol Succinate Er 25 Mg Tab.Er.24h) 25 mg PO DAILY [facility]; Protocol Last Admin: 05/31/21 09:28 Dose: 25 mg Documented by: CHIKIS Pharmacy Consult (Consult Rx Perform Med Rec) 1 each MISCELLANE ONCE PRN PRN Reason: Consult order Pravastatin Sodium (Pravastatin Sodium 40 Mg Tablet) 40 mg PO DAILY [facility] Last Admin: 05/31/21 09:28 Dose: 40 mg Documented by: CHIKIS Senna (Sennosides 8.6 Mg Tablet) 17.2 mg PO BEDTIME PRN PRN Reason: Constipation Sodium Chloride (0.9 % Sodium Chloride Flush 3 Ml Syringe) 3 ml IVFLUSH QSHIFT [facility] Last Admin: 05/31/21 09:27 Dose: 3 ml Documented by: CHIKIS Tamsulosin HCl (Tamsulosin Hcl 0.4 Mg Capsule) 0.4 mg PO DAILY [facility] Last Admin: 05/31/21 09:28 Dose: 0.4 mg Documented by: CHIKIS Tizanidine HCl (Tizanidine Hcl 4 Mg Tablet) 2 mg PO BID PRN PRN Reason: for muscle spasm Last Admin: 05/30/21 21:51 Dose: 2 mg Documented by: GILA Labs CBC & Chem 7: 05/25/21 06:42 05/25/21 06:42 Labs: Laboratory Results - last 24 hr 05/30/21 05/30/21 05/30/21 11:01 16:44 20:00 POC Glucose 192 H 368 H* 387 H* 05/31/21 07:26 POC Glucose 133 H Assessment and Plan (1) Respiratory failure: Status: Acute (2) COVID-19: Status: Acute Assessment and Plan: 80-year-old male with a past medical history of hypertension, hyperlipidemia, diabetes, BPH, osteoarthritis, generalized anxiety, depression, opiate dependence on Suboxone; presented to the hospital today with a chief complaint of shortness of breath.? ? Noted to have acute hypoxic respiratory failure in the setting of COVID-19 pneumonia.? Admitted for further management.? Acute, severe hypoxic respiratory failure, on high flow -Covid 19 PNA--no indication for Abx -continue high flow, sorin sat above 90 - continue Dexametasone to up to 10 days -Baricitinib to be ordered by Pulmonology, for 14 days or until better -no indication for Remdesevir Diabetes:? Lantus, SSI, and Diabetes diet History of anxiety / depression: Continue home clonazepam, clonidine, fluoxetine, gabapentin. History of opiate dependence: Patient on Suboxone. ? addiction Medicine following anxiety agitation--try low dose seroquel PRN updating family on ongoing basis DVT prophylaxis:? Lovenox Code status:? Full Code Quality Stroke Does the patient have a stroke diagnosis?: No VTE Prior VTE?: No VTE Risk Level:: Medical - moderate - high VTE Device Contraindication: Treatment Not Indicated VTE Drug Contraindication: N/A - Med Ordered
[2021-05-31 11:15] LABS: Glucose, Whole Blood 315 mg/dL (60-115)
[2021-05-31] MEDS: Insulin Lispro 100 UNIT/ML 3 ML VIAL SUBCUT ×3 (12:12→21:30)
[2021-05-31 16:05] LABS: Glucose, Whole Blood 270 mg/dL (60-115)
--- NOTE | 2021-05-31 18:01 | PC.NURSE ---
Witnessed RN Deepti Johnson wasting 15 mcg Buprenorphine patch that she found on this patient ,Deepti will notify attending
--- NOTE | 2021-05-31 18:02 | PC.NURSE ---
Buprenorphine transdermal patch removed from the patient left upper back and wasted , witnessed by Carissa Deng RN
[2021-05-31 19:54] LABS: Glucose, Whole Blood 308 mg/dL (60-115)
[2021-05-31] MEDS: Enoxaparin Sodium 40 MG/0.4 ML SYRINGE SUBCUT (21:29)
[2021-05-31] MEDS: Insulin Glargine,Hum.rec.anlog 100 UNIT/ML 10 ML VIAL 20 UNIT SUBCUT (21:30)
[2021-05-31] MEDS: clonazePAM 1 MG TABLET PO (22:16)
[2021-06-01] VITALS (13 sets, daily range): BP systolic 133–164; BP diastolic 64–73; PULSE 51–68; RESP 14–20; TEMP 35.5–37.1; O2SAT 89–97
[2021-06-01] MEDS: 0.9 % Sodium Chloride Flush 3 ML SYRINGE IVFLUSH ×4 (00:44→20:17)
[2021-06-01 07:34] LABS: Glucose, Whole Blood 129 mg/dL (60-115)
--- NOTE | 2021-06-01 07:54 | P.PNIM_ITS ---
Subjective Subjective Date of Service: 06/01/21 Interval History: f/u covid hypoxia, remains on high flow seems better with saturation today Review of Systems no fever no cough Physical Exam Verdana 4l Vital Signs: Verdana 4d Verdana 4d Vital Signs: Verdana 4d Verdana 4Bd Last Vital Signs Verdana 4d Process Laboratory Specialist New 4d Process Laboratory Specialist New 4d Temp 97.7 F 06/01/21 07:15 Process Laboratory Specialist New 4d Pulse 63 06/01/21 07:15 Process Laboratory Specialist New 4d Resp 20 06/01/21 07:35 BP 156/68 H 06/01/21 07:15 Pulse Ox 97 06/01/21 07:15 BMI result Body Mass Index 28.3 Const: Other: General: AO X 2, no acute distress Resp: normal resp effort CVS: S1,S2,RRR GI: +BS, NT, no distention Skin: No rash Neuro: motor grossly intact Psych: appropriate affect Objective Data Active Medications Acetaminophen (Acetaminophen 325 Mg Tablet) 650 mg PO Q6H PRN PRN Reason: Pain, Mild (Pain Scale 1-3) Last Admin: 05/26/21 17:27 Dose: 650 mg Documented by: JACINTO Baricitinib (Baricitinib 2 Mg Tablet) 4 mg PO Q24H [facility] Stop: 06/08/21 09:01 Last Admin: 05/31/21 09:27 Dose: 4 mg Documented by: CHIKIS Clonazepam (Clonazepam 1 Mg Tablet) 1 mg PO BID [facility] Last Admin: 05/31/21 22:16 Dose: 1 mg Documented by: JARRETT Dexamethasone Sodium Phosphate (Dexamethasone Sod Phosphate 4 Mg/Ml Vial) 12 mg IVPUSH DAILY [facility] Last Admin: 05/31/21 09:27 Dose: 12 mg Documented by: CHIKIS Dextrose (Dextrose 50 % 25 Gm/50 Ml Syringe) 25 gm IVPUSH Q15M PRN; Protocol PRN Reason: per Hypoglycemia Standing Ord. Enoxaparin Sodium (Enoxaparin Sodium 40 Mg/0.4 Ml Syringe) 40 mg SUBCUT Q24H [facility] Last Admin: 05/31/21 21:29 Dose: 40 mg Documented by: JARRETT Fluoxetine HCl (Fluoxetine Hcl 20 Mg Capsule) 20 mg PO DAILY [facility] Last Admin: 05/31/21 09:28 Dose: 20 mg Documented by: CHIKIS Gabapentin (Gabapentin 300 Mg Capsule) 300 mg PO TID [facility] Last Admin: 05/31/21 21:29 Dose: 300 mg Documented by: JARRETT Glucose (Glucose Gel 15 Gm Gel..Gram.) 15 gm PO Q15M PRN; Protocol PRN Reason: per Hypoglycemia Standing Ord. Insulin Glargine (Insulin Glargine,Hum.Rec.Anlog 100 Unit/Ml 10 Ml Vial) 20 unit SUBCUT BEDTIME [facility] Last Admin: 05/31/21 21:30 Dose: 20 unit Documented by: JARRETT Insulin Human Lispro (Insulin Lispro 100 Unit/Ml 3 Ml Vial) 0 unit SUBCUT QIDACHS [facility]; Protocol Last Admin: 06/01/21 07:37 Dose: Not Given Documented by: CHIKIS Non-Admin Reason: No Insulin Coverage Losartan Potassium (Losartan Potassium 50 Mg Tablet) 100 mg PO DAILY [facility]; Protocol Last Admin: 05/31/21 09:27 Dose: 100 mg Documented by: CHIKIS Melatonin (Melatonin 3 Mg Tablet) 6 mg PO BEDTIME PRN PRN Reason: Insomnia Last Admin: 05/30/21 21:51 Dose: 6 mg Documented by: GILA Metoprolol Succinate (Metoprolol Succinate Er 25 Mg Tab.Er.24h) 25 mg PO DAILY [facility]; Protocol Last Admin: 05/31/21 09:28 Dose: 25 mg Documented by: CHIKIS Pharmacy Consult (Consult Rx Perform Med Rec) 1 each MISCELLANE ONCE PRN PRN Reason: Consult order Pravastatin Sodium (Pravastatin Sodium 40 Mg Tablet) 40 mg PO DAILY [facility] Last Admin: 05/31/21 09:28 Dose: 40 mg Documented by: CHIKIS Senna (Sennosides 8.6 Mg Tablet) 17.2 mg PO BEDTIME PRN PRN Reason: Constipation Sodium Chloride (0.9 % Sodium Chloride Flush 3 Ml Syringe) 3 ml IVFLUSH QSHIFT [facility] Last Admin: 06/01/21 00:44 Dose: 3 ml Documented by: MOISÉS Tamsulosin HCl (Tamsulosin Hcl 0.4 Mg Capsule) 0.4 mg PO DAILY [facility] Last Admin: 05/31/21 09:28 Dose: 0.4 mg Documented by: CHIKIS Tizanidine HCl (Tizanidine Hcl 4 Mg Tablet) 2 mg PO BID PRN PRN Reason: for muscle spasm Last Admin: 05/30/21 21:51 Dose: 2 mg Documented by: GILA Labs CBC & Chem 7: 05/25/21 06:42 05/25/21 06:42 Labs: Laboratory Results - last 24 hr 05/31/21 05/31/21 05/31/21 11:07 16:02 19:51 POC Glucose 315 H 270 H 308 H 06/01/21 07:30 POC Glucose 129 H Assessment and Plan (1) Respiratory failure: Status: Acute (2) COVID-19: Status: Acute Plan 80-year-old male with a past medical history of hypertension, hyperlipidemia, diabetes, BPH, osteoarthritis, generalized anxiety, depression, opiate dependence on Suboxone; presented to the hospital today with a chief complaint o f shortness of breath.? ? Noted to have acute hypoxic respiratory failure in the setting of COVID-19 pneumonia.? Admitted for further management.? Acute, severe hypoxic respiratory failure, on high flow -Covid 19 PNA--no indication for Abx -continue high flow, sorin sat above 90 - continue Dexametasone to up to 10 days -Baricitinib to be ordered by Pulmonology, for 14 days or until better -no indication for Remdesevir Diabetes:? Lantus, SSI, and Diabetes diet History of anxiety / depression: Continue home clonazepam, clonidine, fluoxetine, gabapentin. History of opiate dependence: Patient on Suboxone. ? addiction Medicine following anxiety agitation--try low dose seroquel PRN updating family on ongoing basis DVT prophylaxis:? Lovenox Code status:? Full Code Quality Stroke Does the patient have a stroke diagnosis?: No VTE Prior VTE?: No VTE Risk Level:: Medical - moderate - high VTE Device Contraindication: Treatment Not Indicated VTE Drug Contraindication: N/A - Med Ordered
[2021-06-01] MEDS: Metoprolol Succinate ER 25 MG TAB.ER.24H PO (09:49)
[2021-06-01] MEDS: Tamsulosin HCL 0.4 MG CAPSULE PO (09:49)
[2021-06-01] MEDS: dexAMETHasone sod phosphate 4 MG/ML VIAL 12 MG IVPUSH (09:49)
[2021-06-01] MEDS: Losartan Potassium 50 MG TABLET 100 MG PO (09:49)
[2021-06-01] MEDS: Gabapentin 300 MG CAPSULE PO ×3 (09:49→20:17)
[2021-06-01] MEDS: Pravastatin Sodium 40 MG TABLET PO (09:50)
[2021-06-01] MEDS: clonazePAM 1 MG TABLET PO ×2 (09:50→20:17)
[2021-06-01] MEDS: FLUoxetine HCl 20 MG CAPSULE PO (09:50)
--- NOTE | 2021-06-01 11:27 | MHC.CM.PN ---
Per ROUNDS discussion, Patient is not yet medically cleared for dc (high flow O2, IV Decadron); Home with services is the goal for dc and CM will follow for possible need to adjust the dc plan.
[2021-06-01 11:53] LABS: Glucose, Whole Blood 233 mg/dL (60-115)
[2021-06-01] MEDS: Insulin Lispro 100 UNIT/ML 3 ML VIAL SUBCUT ×3 (12:15→21:18)
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
[2021-06-01 16:21] LABS: Glucose, Whole Blood 305 mg/dL (60-115)
[2021-06-01 20:16] LABS: Glucose, Whole Blood 275 mg/dL (60-115)
[2021-06-01] MEDS: Enoxaparin Sodium 40 MG/0.4 ML SYRINGE SUBCUT (20:17)
[2021-06-01] MEDS: Insulin Glargine,Hum.rec.anlog 100 UNIT/ML 10 ML VIAL 20 UNIT SUBCUT (21:18)
[2021-06-02] VITALS (13 sets, daily range): BP systolic 106–175; BP diastolic 61–80; PULSE 51–86; RESP 14–22; TEMP 36.4–37.4; O2SAT 55–99
[2021-06-02 07:25] LABS: Glucose, Whole Blood 144 mg/dL (60-115)
[2021-06-02] MEDS: clonazePAM 1 MG TABLET PO ×2 (10:09→21:28)
[2021-06-02] MEDS: Gabapentin 300 MG CAPSULE PO ×3 (10:09→21:28)
[2021-06-02] MEDS: Losartan Potassium 50 MG TABLET 100 MG PO (10:09)
[2021-06-02] MEDS: dexAMETHasone sod phosphate 4 MG/ML VIAL 12 MG IVPUSH (10:09)
[2021-06-02] MEDS: 0.9 % Sodium Chloride Flush 3 ML SYRINGE IVFLUSH ×3 (10:10→21:29)
[2021-06-02] MEDS: FLUoxetine HCl 20 MG CAPSULE PO (10:10)
[2021-06-02] MEDS: Pravastatin Sodium 40 MG TABLET PO (10:10)
[2021-06-02] MEDS: Metoprolol Succinate ER 25 MG TAB.ER.24H PO (10:10)
[2021-06-02] MEDS: Tamsulosin HCL 0.4 MG CAPSULE PO (10:10)
[2021-06-02 11:27] LABS: Glucose, Whole Blood 207 mg/dL (60-115)
--- NOTE | 2021-06-02 12:06 | HO.PM.IMPN ---
Subjective Subjective Date of Service: 06/02/21 Interval History: Breathing still slightly labored. No other actue issues Review of Systems Denies CP Admits SOB @ rest Denies N/V/D Physical Exam Vital Signs: Vital Signs: Last Vital Signs Temp 97.6 F 06/02/21 11:05 Pulse 70 06/02/21 11:05 Resp 20 06/02/21 11:32 BP 136/62 06/02/21 11:05 Pulse Ox 92 06/02/21 11:05 BMI result Body Mass Index 28.3 Const: Other: No acute distress Resp: Other: Diminished at bases with scant inspiratory crackles Cardio: Other: -S4/+S1/S2_S3 M/R/G GI: Other: Soft NT/ND +NABS x 4 quads Extrem: Other: no edema bilat Objective Data Active Medications Acetaminophen (Acetaminophen 325 Mg Tablet) 650 mg PO Q6H PRN PRN Reason: Pain, Mild (Pain Scale 1-3) Last Admin: 05/26/21 17:27 Dose: 650 mg Documented by: JACINTO Baricitinib (Baricitinib 2 Mg Tablet) 4 mg PO Q24H [facility] Stop: 06/08/21 09:01 Last Admin: 06/02/21 10:10 Dose: 4 mg Documented by: RAO Clonazepam (Clonazepam 1 Mg Tablet) 1 mg PO BID [facility] Last Admin: 06/02/21 10:09 Dose: 1 mg Documented by: RAO Dexamethasone Sodium Phosphate (Dexamethasone Sod Phosphate 4 Mg/Ml Vial) 12 mg IVPUSH DAILY [facility] Last Admin: 06/02/21 10:09 Dose: 12 mg Documented by: RAO Dextrose (Dextrose 50 % 25 Gm/50 Ml Syringe) 25 gm IVPUSH Q15M PRN; Protocol PRN Reason: per Hypoglycemia Standing Ord. Enoxaparin Sodium (Enoxaparin Sodium 40 Mg/0.4 Ml Syringe) 40 mg SUBCUT Q24H [facility] Last Admin: 06/01/21 20:17 Dose: 40 mg Documented by: ANTLILIANA Fluoxetine HCl (Fluoxetine Hcl 20 Mg Capsule) 20 mg PO DAILY [facility] Last Admin: 06/02/21 10:10 Dose: 20 mg Documented by: RAO Gabapentin (Gabapentin 300 Mg Capsule) 300 mg PO TID [facility] Last Admin: 06/02/21 10:09 Dose: 300 mg Documented by: RAO Glucose (Glucose Gel 15 Gm Gel..Gram.) 15 gm PO Q15M PRN; Protocol PRN Reason: per Hypoglycemia Standing Ord. Insulin Glargine (Insulin Glargine,Hum.Rec.Anlog 100 Unit/Ml 10 Ml Vial) 20 unit SUBCUT BEDTIME [facility] Last Admin: 06/01/21 21:18 Dose: 20 unit Documented by: JASON Insulin Human Lispro (Insulin Lispro 100 Unit/Ml 3 Ml Vial) 0 unit SUBCUT QIDACHS [facility]; Protocol Last Admin: 06/02/21 07:52 Dose: Not Given Documented by: RAO Non-Admin Reason: No Insulin Coverage Losartan Potassium (Losartan Potassium 50 Mg Tablet) 100 mg PO DAILY [facility]; Protocol Last Admin: 06/02/21 10:09 Dose: 100 mg Documented by: RAO Melatonin (Melatonin 3 Mg Tablet) 6 mg PO BEDTIME PRN PRN Reason: Insomnia Last Admin: 05/30/21 21:51 Dose: 6 mg Documented by: GILA Metoprolol Succinate (Metoprolol Succinate Er 25 Mg Tab.Er.24h) 25 mg PO DAILY [facility]; Protocol Last Admin: 06/02/21 10:10 Dose: 25 mg Documented by: RAO Pharmacy Consult (Consult Rx Perform Med Rec) 1 each MISCELLANE ONCE PRN PRN Reason: Consult order Pravastatin Sodium (Pravastatin Sodium 40 Mg Tablet) 40 mg PO DAILY [facility] Last Admin: 06/02/21 10:10 Dose: 40 mg Documented by: RAO Senna (Sennosides 8.6 Mg Tablet) 17.2 mg PO BEDTIME PRN PRN Reason: Constipation Sodium Chloride (0.9 % Sodium Chloride Flush 3 Ml Syringe) 3 ml IVFLUSH QSHIFT [facility] Last Admin: 06/02/21 10:10 Dose: 3 ml Documented by: RAO Tamsulosin HCl (Tamsulosin Hcl 0.4 Mg Capsule) 0.4 mg PO DAILY [facility] Last Admin: 06/02/21 10:10 Dose: 0.4 mg Documented by: RAO Tizanidine HCl (Tizanidine Hcl 4 Mg Tablet) 2 mg PO BID PRN PRN Reason: for muscle spasm Last Admin: 05/30/21 21:51 Dose: 2 mg Documented by: GILA Labs CBC & Chem 7: 05/25/21 06:42 05/25/21 06:42 Labs: Laboratory Results - last 24 hr 06/01/21 06/01/21 06/02/21 16:07 20:11 07:15 POC Glucose 305 H 275 H 144 H 06/02/21 11:18 POC Glucose 207 H Assessment and Plan (1) Acute respiratory failure with hypoxia: Status: Acute (2) COVID-19: Status: Acute (3) DMII (diabetes mellitus, type 2): Status: Acute (4) HTN (hypertension): Status: Acute Plan 80-year-old male with a past medical history of hypertension, hyperlipidemia, diabetes, BPH, osteoarthritis, generalized anxiety, depression, opiate dependence on Suboxone; presented to the hospital today with a chief complaint of shortness of breath.? ? Noted to have acute hypoxic respiratory failure in the setting of COVID-19 pneumonia.? Admitted for further management.? 1.Acute, severe hypoxic respiratory failure -Dexametasone (01/14) -Baricitinib (10/18) -Titrate O2 as tolerated 2.Diabetes - Lantus/Lispro SS -acceptable control - adjust as indiacted 3.History of anxiety / depression - Continue home clonazepam, clonidine, fluoxetine, gabapentin. 4.History of opiate dependence -On Suboxone. ? addiction Medicine following DVT prophylaxis:? Lovenox Code status:? Full Code Quality Stroke Does the patient have a stroke diagnosis?: No VTE Prior VTE?: No VTE Risk Level:: Medical - moderate - high VTE Device Contraindication: Treatment Not Indicated VTE Drug Contraindication: N/A - Med Ordered
[2021-06-02] MEDS: Insulin Lispro 100 UNIT/ML 3 ML VIAL SUBCUT ×3 (12:28→21:28)
[2021-06-02 15:57] LABS: Glucose, Whole Blood 362 mg/dL (60-115)
[2021-06-02 20:06] LABS: Glucose, Whole Blood 284 mg/dL (60-115)
[2021-06-02] MEDS: Melatonin 3 MG TABLET 6 MG PO (21:28)
[2021-06-02] MEDS: Enoxaparin Sodium 40 MG/0.4 ML SYRINGE SUBCUT (21:28)
[2021-06-02] MEDS: Insulin Glargine,Hum.rec.anlog 100 UNIT/ML 10 ML VIAL 20 UNIT SUBCUT (21:29)
[2021-06-03] VITALS (10 sets, daily range): BP systolic 134–151; BP diastolic 67–71; PULSE 48–89; RESP 18–64; TEMP 36.3–36.9; O2SAT 87–97
--- NOTE | 2021-06-03 06:59 | PC.NURSE ---
pt refusing high flow and o2 sensor stating to holistic specialist he wants to leave he doesnt need any of them, explained to to patient without high flow oxygen he will not be able to breath pt still continuing to refused, eventually pt agreeable to wear 100% non rebreather 02 sats remain stable. report to daniel CABALLERO
[2021-06-03 07:40] LABS: Glucose, Whole Blood 113 mg/dL (60-115)
[2021-06-03] MEDS: Morphine Sulfate 2 MG/ML CARTRIDGE IVPUSH ×3 (07:52→22:05)
[2021-06-03] MEDS: dexAMETHasone sod phosphate 4 MG/ML VIAL 12 MG IVPUSH (09:14)
[2021-06-03] MEDS: clonazePAM 1 MG TABLET PO ×2 (09:15→22:04)
[2021-06-03] MEDS: Losartan Potassium 50 MG TABLET 100 MG PO (09:15)
[2021-06-03] MEDS: 0.9 % Sodium Chloride Flush 3 ML SYRINGE IVFLUSH ×3 (09:15→22:06)
[2021-06-03] MEDS: Tamsulosin HCL 0.4 MG CAPSULE PO (09:15)
[2021-06-03] MEDS: Pravastatin Sodium 40 MG TABLET PO (09:16)
[2021-06-03] MEDS: Metoprolol Succinate ER 25 MG TAB.ER.24H PO (09:16)
[2021-06-03] MEDS: Gabapentin 300 MG CAPSULE PO ×3 (09:16→22:04)
[2021-06-03] MEDS: FLUoxetine HCl 20 MG CAPSULE PO (09:16)
[2021-06-03 11:08] LABS: Glucose, Whole Blood 150 mg/dL (60-115)
--- NOTE | 2021-06-03 13:15 | P.PNIM_ITS ---
Subjective Subjective Date of Service: 06/03/21 Interval History: Episode of confusion this am...pulling off High Flow. Desat to 84. Given MSO4 with good reults. Review of Systems Unable secondary to confusion this am Physical Exam Verdana 4l Vital Signs: Verdana 4d Verdana 4d Vital Signs: Verdana 4d Verdana 4Bd Last Vital Signs Verdana 4d Automatic Nailing Machine Operator New 4d Automatic Nailing Machine Operator New 4d Temp 98.4 F 06/03/21 11:21 Automatic Nailing Machine Operator New 4d Pulse 62 06/03/21 11:21 Automatic Nailing Machine Operator New 4d Resp 18 06/03/21 11:21 BP 144/70 H 06/03/21 11:21 Pulse Ox 90 L 06/03/21 11:21 BMI result Body Mass Index 28.3 Const: Other: No acute distress Resp: Other: Diminished at bases with scant inspiratory crackles Cardio: Other: -S4/+S1/S2_S3 M/R/G GI: Other: Soft NT/ND +NABS x 4 quads Extrem: Other: no edema bilat Objective Data Active Medications Acetaminophen (Acetaminophen 325 Mg Tablet) 650 mg PO Q6H PRN PRN Reason: Pain, Mild (Pain Scale 1-3) Last Admin: 05/26/21 17:27 Dose: 650 mg Documented by: JACINTO Baricitinib (Baricitinib 2 Mg Tablet) 4 mg PO Q24H [facility] Stop: 06/08/21 09:01 Last Admin: 06/03/21 09:16 Dose: 4 mg Documented by: RAO Clonazepam (Clonazepam 1 Mg Tablet) 1 mg PO BID [facility] Last Admin: 06/03/21 09:15 Dose: 1 mg Documented by: RAO Dexamethasone Sodium Phosphate (Dexamethasone Sod Phosphate 4 Mg/Ml Vial) 12 mg IVPUSH DAILY [facility] Last Admin: 06/03/21 09:14 Dose: 12 mg Documented by: RAO Dextrose (Dextrose 50 % 25 Gm/50 Ml Syringe) 25 gm IVPUSH Q15M PRN; Protocol PRN Reason: per Hypoglycemia Standing Ord. Enoxaparin Sodium (Enoxaparin Sodium 40 Mg/0.4 Ml Syringe) 40 mg SUBCUT Q24H [facility] Last Admin: 06/02/21 21:28 Dose: 40 mg Documented by: JHONATAN Fluoxetine HCl (Fluoxetine Hcl 20 Mg Capsule) 20 mg PO DAILY [facility] Last Admin: 06/03/21 09:16 Dose: 20 mg Documented by: RAO Gabapentin (Gabapentin 300 Mg Capsule) 300 mg PO TID [facility] Last Admin: 06/03/21 09:16 Dose: 300 mg Documented by: RAO Glucose (Glucose Gel 15 Gm Gel..Gram.) 15 gm PO Q15M PRN; Protocol PRN Reason: per Hypoglycemia Standing Ord. Insulin Glargine (Insulin Glargine,Hum.Rec.Anlog 100 Unit/Ml 10 Ml Vial) 20 unit SUBCUT BEDTIME [facility] Last Admin: 06/02/21 21:29 Dose: 20 unit Documented by: JHONATAN Insulin Human Lispro (Insulin Lispro 100 Unit/Ml 3 Ml Vial) 0 unit SUBCUT QIDACHS [facility]; Protocol Last Admin: 06/03/21 11:30 Dose: Not Given Documented by: RAO Non-Admin Reason: No Insulin Coverage Losartan Potassium (Losartan Potassium 50 Mg Tablet) 100 mg PO DAILY [facility]; Protocol Last Admin: 06/03/21 09:15 Dose: 100 mg Documented by: RAO Melatonin (Melatonin 3 Mg Tablet) 6 mg PO BEDTIME PRN PRN Reason: Insomnia Last Admin: 06/02/21 21:28 Dose: 6 mg Documented by: JHONATAN Metoprolol Succinate (Metoprolol Succinate Er 25 Mg Tab.Er.24h) 25 mg PO DAILY [facility]; Protocol Last Admin: 06/03/21 09:16 Dose: 25 mg Documented by: RAO Morphine Sulfate (Morphine Sulfate 2 Mg/Ml Cartridge) 2 mg IVPUSH Q3H PRN; Protocol PRN Reason: anxiety/restlessness Last Admin: 06/03/21 07:52 Dose: 2 mg Documented by: RAO Pharmacy Consult (Consult Rx Perform Med Rec) 1 each MISCELLANE ONCE PRN PRN Reason: Consult order Pravastatin Sodium (Pravastatin Sodium 40 Mg Tablet) 40 mg PO DAILY [facility] Last Admin: 06/03/21 09:16 Dose: 40 mg Documented by: RAO Senna (Sennosides 8.6 Mg Tablet) 17.2 mg PO BEDTIME PRN PRN Reason: Constipation Sodium Chloride (0.9 % Sodium Chloride Flush 3 Ml Syringe) 3 ml IVFLUSH QSHIFT [facility] Last Admin: 06/03/21 09:15 Dose: 3 ml Documented by: RAO Tamsulosin HCl (Tamsulosin Hcl 0.4 Mg Capsule) 0.4 mg PO DAILY [facility] Last Admin: 06/03/21 09:15 Dose: 0.4 mg Documented by: RAO Tizanidine HCl (Tizanidine Hcl 4 Mg Tablet) 2 mg PO BID PRN PRN Reason: for muscle spasm Last Admin: 05/30/21 21:51 Dose: 2 mg Documented by: GILA Labs CBC & Chem 7: 05/25/21 06:42 05/25/21 06:42 Labs: Laboratory Results - last 24 hr 06/02/21 06/02/21 06/03/21 15:53 20:03 07:27 POC Glucose 362 H* 284 H 113 06/03/21 10:55 POC Glucose 150 H Assessment and Plan (1) Acute respiratory failure with hypoxia: Status: Acute (2) COVID-19: Status: Acute (3) DMII (diabetes mellitus, type 2): Status: Acute (4) HTN (hypertension): Status: Acute Plan 80-year-old male with a past medical history of hypertension, hyperlipidemia, diabetes, BPH, osteoarthritis, generalized anxiety, depression, opiate dependence on Suboxone; presented to the hospital today with a chief complaint of shortness of breath.? ? Noted to have acute hypoxic respiratory failure in the setting of COVID-19 pneumonia.? Admitted for further management.? 1.Acute, severe hypoxic respiratory failure Given acute episode this am...switch to solumedrol/prn MSO4 -Dexametasone (02/13) -Baricitinib (11/17) -Titrate O2 as tolerated 2.Diabetes - Lantus/Lispro SS -acceptable control - adjust as indiacted 3.History of anxiety / depression - Continue home clonazepam, clonidine, fluoxetine, gabapentin. 4.History of opiate dependence -On Suboxone. ? addiction Medicine following DVT prophylaxis:? Lovenox Code status:? Full Code Quality Stroke Does the patient have a stroke diagnosis?: No VTE Prior VTE?: No VTE Risk Level:: Medical - moderate - high VTE Device Contraindication: Treatment Not Indicated VTE Drug Contraindication: N/A - Med Ordered
[2021-06-03 17:43] LABS: Glucose, Whole Blood 311 mg/dL (60-115)
[2021-06-03] MEDS: Insulin Lispro 100 UNIT/ML 3 ML VIAL SUBCUT ×2 (17:44→22:04)
[2021-06-03 21:08] LABS: Glucose, Whole Blood 222 mg/dL (60-115)
[2021-06-03] MEDS: Insulin Glargine,Hum.rec.anlog 100 UNIT/ML 10 ML VIAL 20 UNIT SUBCUT (22:04)
[2021-06-03] MEDS: Enoxaparin Sodium 40 MG/0.4 ML SYRINGE SUBCUT (22:05)
[2021-06-04] VITALS (14 sets, daily range): BP systolic 118–174; BP diastolic 50–77; PULSE 46–85; RESP 14–22; TEMP 36.3–37; O2SAT 90–99
[2021-06-04 08:05] LABS: Glucose, Whole Blood 111 mg/dL (60-115)
[2021-06-04 08:24] LABS: MANUAL DIFF FLAG NO
[2021-06-04 08:27] LABS: Basophils Percent Auto 0.1 % (0-2); Eosinophils Percent Auto 0.2 % (0-4); Hematocrit 40.4 % (42.0-52.0); Hemoglobin 13.1 g/dl (14.0-18.0); Imm Gran Abs Auto 0.05 X10*3/uL (0.00-0.03); Imm Gran Pct Auto 0.5 % (0.0-0.4); Lymphocytes Absolute Auto 0.9 X10*3/uL (1.2-4.9); Lymphocytes Percent Auto 7.9 % (20-40); Mean Corpuscular HGB Conc 32.4 g/dl (31.0-36.0); Mean Corpuscular Hemoglobin 29.4 pg (27.0-33.0); Mean Corpuscular Volume 90.8 fL (80.0-98.0); Mean Platelet Volume 11.6 fL (9.4-12.4); Monocytes Absolute Auto 0.5 X10*3/uL (0.1-1.2); Monocytes Percent Auto 4.3 % (2-11); Neutrophils Absolute Auto 9.4 x10*3/uL (2.0-8.3); Red Blood Count 4.45 X10*6/uL (4.60-5.80); Red Cell Distribution Width 12.7 % (11.0-16.0); White Blood Count 10.8 X10*3/uL (4.8-10.8)
[2021-06-04 08:30] LABS: Platelet Count 94 X10*3/uL (160-400)
[2021-06-04] MEDS: FLUoxetine HCl 20 MG CAPSULE PO (08:53)
[2021-06-04] MEDS: Metoprolol Succinate ER 25 MG TAB.ER.24H PO (08:53)
[2021-06-04] MEDS: Pravastatin Sodium 40 MG TABLET PO (08:53)
[2021-06-04] MEDS: clonazePAM 1 MG TABLET PO ×2 (08:53→21:36)
[2021-06-04] MEDS: Tamsulosin HCL 0.4 MG CAPSULE PO (08:53)
[2021-06-04] MEDS: Gabapentin 300 MG CAPSULE PO ×3 (08:53→21:36)
[2021-06-04] MEDS: Losartan Potassium 50 MG TABLET 100 MG PO (08:54)
[2021-06-04] MEDS: Morphine Sulfate 2 MG/ML CARTRIDGE IVPUSH ×3 (08:54→23:01)
[2021-06-04] MEDS: 0.9 % Sodium Chloride Flush 3 ML SYRINGE IVFLUSH ×3 (08:54→21:37)
[2021-06-04] MEDS: dexAMETHasone sod phosphate 4 MG/ML VIAL 12 MG IVPUSH (08:54)
[2021-06-04 08:55] LABS: Alanine Aminotransferase 26 U/L (0-40); Albumin Level 2.6 g/dL (3.5-5.0); Alkaline Phosphatase 74 U/L (39-117); Anion Gap 14 (12-20); Aspartate Amino Transferase 29 U/L (5-37); Bilirubin Total 1.1 mg/dL (0.0-1.0); Blood Urea Nitrogen 29 mg/dL (9-16); Calcium 8.5 mg/dL (8.4-10.2); Carbon Dioxide 22 mmol/L (22-29); Chloride 105 mmol/L (96-108); Creatinine Clr Calc Pharmacy 93.5; Estimated Glomerular Filt Rate > 60; Glucose Random 129 mg/dL (60-115); Potassium 4.6 mmol/L (3.3-5.1); Sodium 136 mmol/L (135-145); Total Protein 6.5 g/dL (6.5-8.0)
--- NOTE | 2021-06-04 11:10 | P.PNIM_ITS ---
Subjective Subjective Date of Service: 06/04/21 Interval History: More alert/cooperative today. No acute issues overnight Review of Systems Denies CP Denies SOB Deneies N/V/D Physical Exam 2 Verdana 4l Vital Signs: Verdana 4d Verdana 4d Vital Signs: Verdana 4d Verdana 4Bd Last Vital Signs Verdana 4d Special Education Bus Driver New 4d Special Education Bus Driver New 4d Temp 98.6 F 06/04/21 07:59 Special Education Bus Driver New 4d Pulse 61 06/04/21 07:59 Special Education Bus Driver New 4d Resp 20 06/04/21 08:28 BP 118/58 L 06/04/21 07:59 Pulse Ox 90 L 06/04/21 07:59 BMI result Body Mass Index 28.3 Const: Other: No acute distress Resp: Other: Diminished at bases with scant inspiratory crackles Cardio: Other: -S4/+S1/S2_S3 M/R/G GI: Other: Soft NT/ND +NABS x 4 quads Extrem: Other: no edema bilat Objective Data Active Medications Acetaminophen (Acetaminophen 325 Mg Tablet) 650 mg PO Q6H PRN PRN Reason: Pain, Mild (Pain Scale 1-3) Last Admin: 05/26/21 17:27 Dose: 650 mg Documented by: JACINTO Baricitinib (Baricitinib 2 Mg Tablet) 4 mg PO Q24H [facility] Stop: 06/08/21 09:01 Last Admin: 06/04/21 08:53 Dose: 4 mg Documented by: YAZMIN Clonazepam (Clonazepam 1 Mg Tablet) 1 mg PO BID [facility] Last Admin: 06/04/21 08:53 Dose: 1 mg Documented by: YAZMIN Dexamethasone Sodium Phosphate (Dexamethasone Sod Phosphate 4 Mg/Ml Vial) 12 mg IVPUSH DAILY [facility] Last Admin: 06/04/21 08:54 Dose: 12 mg Documented by: YAZMIN Dextrose (Dextrose 50 % 25 Gm/50 Ml Syringe) 25 gm IVPUSH Q15M PRN; Protocol PRN Reason: per Hypoglycemia Standing Ord. Enoxaparin Sodium (Enoxaparin Sodium 40 Mg/0.4 Ml Syringe) 40 mg SUBCUT Q24H [facility] Last Admin: 06/03/21 22:05 Dose: 40 mg Documented by: VICTORIA Fluoxetine HCl (Fluoxetine Hcl 20 Mg Capsule) 20 mg PO DAILY [facility] Last Admin: 06/04/21 08:53 Dose: 20 mg Documented by: YAZMIN Gabapentin (Gabapentin 300 Mg Capsule) 300 mg PO TID [facility] Last Admin: 06/04/21 08:53 Dose: 300 mg Documented by: YAZMIN Glucose (Glucose Gel 15 Gm Gel..Gram.) 15 gm PO Q15M PRN; Protocol PRN Reason: per Hypoglycemia Standing Ord. Insulin Glargine (Insulin Glargine,Hum.Rec.Anlog 100 Unit/Ml 10 Ml Vial) 20 u nit SUBCUT BEDTIME [facility] Last Admin: 06/03/21 22:04 Dose: 20 unit Documented by: VICTORIA Insulin Human Lispro (Insulin Lispro 100 Unit/Ml 3 Ml Vial) 0 unit SUBCUT QIDACHS [facility]; Protocol Last Admin: 06/04/21 08:07 Dose: Not Given Documented by: YAZMIN Non-Admin Reason: No Insulin Coverage Losartan Potassium (Losartan Potassium 50 Mg Tablet) 100 mg PO DAILY [facility]; Pro tocol Last Admin: 06/04/21 08:54 Dose: 100 mg Documented by: YAZMIN Melatonin (Melatonin 3 Mg Tablet) 6 mg PO BEDTIME PRN PRN Reason: Insomnia Last Admin: 06/02/21 21:28 Dose: 6 mg Documented by: JHONATAN Metoprolol Succinate (Metoprolol Succinate Er 25 Mg Tab.Er.24h) 25 mg PO DAILY [facility]; Protocol Last Admin: 06/04/21 08:53 Dose: 25 mg Documented by: YAZMIN Morphine Sulfate (Morphine Sulfate 2 Mg/Ml Cartridge) 2 mg IVPUSH Q3H PRN; Protocol PRN Reason: anxiety/restlessness Last Admin: 06/04/21 08:54 Dose: 2 mg Documented by: YAZMIN Pharmacy Consult (Consult Rx Perform Med Rec) 1 each MISCELLANE ONCE PRN PRN Reason: Consult order Pravastatin Sodium (Pravastatin Sodium 40 Mg Tablet) 40 mg PO DAILY [facility] Last Admin: 06/04/21 08:53 Dose: 40 mg Documented by: YAZMIN Senna (Sennosides 8.6 Mg Tablet) 17.2 mg PO BEDTIME PRN PRN Reason: Constipation Sodium Chloride (0.9 % Sodium Chloride Flush 3 Ml Syringe) 3 ml IVFLUSH QSHIFT [facility] Last Admin: 06/04/21 08:54 Dose: 3 ml Documented by: YAZMIN Tamsulosin HCl (Tamsulosin Hcl 0.4 Mg Capsule) 0.4 mg PO DAILY [facility] Last Admin: 06/04/21 08:53 Dose: 0.4 mg Documented by: YAZMIN Tizanidine HCl (Tizanidine Hcl 4 Mg Tablet) 2 mg PO BID PRN PRN Reason: for muscle spasm Last Admin: 05/30/21 21:51 Dose: 2 mg Documented by: GILA Labs CBC & Chem 7: 06/04/21 07:58 06/04/21 07:58 Labs: Laboratory Results - last 24 hr 06/03/21 06/03/21 06/04/21 17:39 21:00 07:58 MCV 90.8 MCH 29.4 MCHC 32.4 RDW 12.7 Plt Count 94 L MPV 11.6 Immature Gran % (Auto) 0.5 H Neut % (Auto) 87.0 H Lymph % (Auto) 7.9 L [place] % (Auto) 4.3 Eos % (Auto) 0.2 Baso % (Auto) 0.1 Lymph # (Auto) 0.9 L [place] # (Auto) 0.5 Eos # (Auto) 0.0 Baso # (Auto) 0.0 Abs Immat Gran (auto) 0.05 H Absolute Neuts (auto) 9.4 H Absolute Nucleated RBC 0.000 Nucleated RBC % (auto) 0.0 Anion Gap Estim Creat Clear Calc Estimated GFR POC Glucose 311 H 222 H Random Glucose Calcium Total Bilirubin AST ALT Alkaline Phosphatase Total Protein Albumin 06/04/21 06/04/21 07:58 08:00 MCV MCH MCHC RDW Plt Count MPV Immature Gran % (Auto) Neut % (Auto) Lymph % (Auto) [place] % (Auto) Eos % (Auto) Baso % (Auto) Lymph # (Auto) [place] # (Auto) Eos # (Auto) Baso # (Auto) Abs Immat Gran (auto) Absolute Neuts (auto) Absolute Nucleated RBC Nucleated RBC % (auto) Anion Gap 14 Estim Creat Clear Calc 93.5 Estimated GFR > 60 POC Glucose 111 Random Glucose 129 H Calcium 8.5 Total Bilirubin 1.1 H AST 29 D ALT 26 Alkaline Phosphatase 74 D Total Protein 6.5 Albumin 2.6 L Assessment and Plan (1) Acute respiratory distress syndrome (ARDS) due to COVID-19 virus: Status: Acute (2) DMII (diabetes mellitus, type 2): Status: Acute (3) HTN (hypertension): Status: Acute Plan 80-year-old male with a past medical history of hypertension, hyperlipidemia, diabetes, BPH, osteoarthritis, generalized anxiety, depression, opiate dependence on Suboxone; presented to the hospital today with a chief complaint of shortness of breath.? ? Noted to have acute hypoxic respiratory failure in the setting of COVID-19 pneumonia.? Admitted for further management.? 1.Acute, severe hypoxic respiratory failure - more alert today -Dexametasone (02/13) completed 06/03/21...Solumedrol pulse dose -Baricitinib (12/18) -Titrate O2 as tolerated.....continues to require High flow 2.Diabetes - Lantus/Lispro SS -acceptable control - adjust as indiacted 3.History of anxiety / depression - Continue home clonazepam, clonidine, fluoxetine, gabapentin. 4.History of opiate dependence -On Suboxone. ? addiction Medicine following DVT prophylaxis:? Lovenox Code status:? Full Code Quality Stroke Does the patient have a stroke diagnosis?: No VTE Prior VTE?: No VTE Risk Level:: Medical - moderate - high VTE Device Contraindication: Treatment Not Indicated VTE Drug Contraindication: N/A - Med Ordered
[2021-06-04 11:19] LABS: Glucose, Whole Blood 202 mg/dL (60-115)
[2021-06-04] MEDS: Insulin Lispro 100 UNIT/ML 3 ML VIAL SUBCUT ×3 (11:23→21:37)
[2021-06-04] MEDS: TiZANidine HCL 4 MG TABLET 2 MG PO (15:57)
[2021-06-04 16:30] LABS: Glucose, Whole Blood 321 mg/dL (60-115)
--- NOTE | 2021-06-04 20:15 | PC.NURSE ---
Pt in soft restraints per MD as pt has been uncopperative with HF + NRB. He has been incessantly removing the mask and desatting to the low 60's. Restraints evaluated and still deemed necessary.
[2021-06-04 20:34] LABS: Glucose, Whole Blood 216 mg/dL (60-115)
[2021-06-04] MEDS: Enoxaparin Sodium 40 MG/0.4 ML SYRINGE SUBCUT (21:36)
[2021-06-04] MEDS: Insulin Glargine,Hum.rec.anlog 100 UNIT/ML 10 ML VIAL 20 UNIT SUBCUT (21:37)
[2021-06-04] MEDS: Melatonin 3 MG TABLET 6 MG PO (23:00)
[2021-06-05] VITALS (12 sets, daily range): BP systolic 102–158; BP diastolic 50–76; PULSE 46–80; RESP 16–18; TEMP 36.1–37.2; O2SAT 78–100
[2021-06-05 06:20] LABS: MANUAL DIFF FLAG NO
[2021-06-05 07:03] LABS: Eosinophils Percent Auto 0.4 % (0-4); Hematocrit 38.1 % (42.0-52.0); Hemoglobin 12.4 g/dl (14.0-18.0); Imm Gran Abs Auto 0.03 X10*3/uL (0.00-0.03); Imm Gran Pct Auto 0.4 % (0.0-0.4); Mean Corpuscular HGB Conc 32.5 g/dl (31.0-36.0); Mean Corpuscular Hemoglobin 29.2 pg (27.0-33.0); Mean Corpuscular Volume 89.9 fL (80.0-98.0); Mean Platelet Volume 10.6 fL (9.4-12.4); Monocytes Absolute Auto 0.4 X10*3/uL (0.1-1.2); Monocytes Percent Auto 4.2 % (2-11); Neutrophils Absolute Auto 6.9 x10*3/uL (2.0-8.3); Platelet Count 104 X10*3/uL (160-400); Red Blood Count 4.24 X10*6/uL (4.60-5.80); Red Cell Distribution Width 12.6 % (11.0-16.0); White Blood Count 8.3 X10*3/uL (4.8-10.8)
[2021-06-05 07:22] LABS: Alanine Aminotransferase 24 U/L (0-40); Albumin Level 2.7 g/dL (3.5-5.0); Alkaline Phosphatase 70 U/L (39-117); Anion Gap 11 (12-20); Aspartate Amino Transferase 18 U/L (5-37); Blood Urea Nitrogen 30 mg/dL (9-16); Calcium 8.8 mg/dL (8.4-10.2); Carbon Dioxide 29 mmol/L (22-29); Chloride 101 mmol/L (96-108); Creatinine Clr Calc Pharmacy 81.8; Estimated Glomerular Filt Rate > 60; Glucose Fasting 93 mg/dL (60-99); Potassium 4.4 mmol/L (3.3-5.1); Sodium 137 mmol/L (135-145); Total Protein 6.4 g/dL (6.5-8.0)
[2021-06-05 07:23] LABS: Glucose, Whole Blood 86 mg/dL (60-115)
[2021-06-05] MEDS: clonazePAM 1 MG TABLET PO ×2 (09:17→20:15)
[2021-06-05] MEDS: Metoprolol Succinate ER 25 MG TAB.ER.24H PO (09:17)
[2021-06-05] MEDS: Tamsulosin HCL 0.4 MG CAPSULE PO (09:17)
[2021-06-05] MEDS: Losartan Potassium 50 MG TABLET 100 MG PO (09:18)
[2021-06-05] MEDS: Gabapentin 300 MG CAPSULE PO ×3 (09:18→20:15)
[2021-06-05] MEDS: Pravastatin Sodium 40 MG TABLET PO (09:18)
[2021-06-05] MEDS: FLUoxetine HCl 20 MG CAPSULE PO (09:18)
[2021-06-05] MEDS: 0.9 % Sodium Chloride Flush 3 ML SYRINGE IVFLUSH ×3 (09:18→20:15)
[2021-06-05] MEDS: methylPREDNISolone Sod Succ 125 MG/2 ML VIAL 60 MG IVPUSH ×3 (09:18→23:22)
[2021-06-05] MEDS: Morphine Sulfate 2 MG/ML CARTRIDGE IVPUSH ×3 (09:19→23:21)
[2021-06-05 11:27] LABS: Glucose, Whole Blood 226 mg/dL (60-115)
[2021-06-05] MEDS: Insulin Lispro 100 UNIT/ML 3 ML VIAL SUBCUT ×3 (11:58→22:14)
--- NOTE | 2021-06-05 13:55 | P.PNIM_ITS ---
Subjective Subjective Date of Service: 06/05/21 Interval History: Uncooperative 06/04...wanting to go home. Family in to see today with good reults. More cooperative Review of Systems Denies CP Denies SOB Deneies N/V/D Physical Exam Verdana 4l Vital Signs: Verdana 4d Verdana 4d Vital Signs: Verdana 4d Verdana 4Bd Last Vital Signs Verdana 4d Agricultural Produce Packer New 4d Agricultural Produce Packer New 4d Temp 97.8 F 06/05/21 11:18 Agricultural Produce Packer New 4d Pulse 59 06/05/21 11:18 Agricultural Produce Packer New 4d Resp 18 06/05/21 12:15 BP 107/56 L 06/05/21 11:18 Pulse Ox 95 06/05/21 11:18 BMI result Body Mass Index 28.3 Const: Other: No acute distress Resp: Other: Diminished at bases with scant inspiratory crackles Cardio: Other: -S4/+S1/S2_S3 M/R/G GI: Other: Soft NT/ND +NABS x 4 quads Extrem: Other: no edema bilat Objective Data Active Medications Acetaminophen (Acetaminophen 325 Mg Tablet) 650 mg PO Q6H PRN PRN Reason: Pain, Mild (Pain Scale 1-3) Last Admin: 05/26/21 17:27 Dose: 650 mg Documented by: JACINTO Baricitinib (Baricitinib 2 Mg Tablet) 4 mg PO Q24H [facility] Stop: 06/08/21 09:01 Last Admin: 06/05/21 09:18 Dose: 4 mg Documented by: YAZMIN Clonazepam (Clonazepam 1 Mg Tablet) 1 mg PO BID [facility] Last Admin: 06/05/21 09:17 Dose: 1 mg Documented by: YAZMIN Dextrose (Dextrose 50 % 25 Gm/50 Ml Syringe) 25 gm IVPUSH Q15M PRN; Protocol PRN Reason: per Hypoglycemia Standing Ord. Enoxaparin Sodium (Enoxaparin Sodium 40 Mg/0.4 Ml Syringe) 40 mg SUBCUT Q24H [facility] Last Admin: 06/04/21 21:36 Dose: 40 mg Documented by: JUSTO Fluoxetine HCl (Fluoxetine Hcl 20 Mg Capsule) 20 mg PO DAILY [facility] Last Admin: 06/05/21 09:18 Dose: 20 mg Documented by: YAZMIN Gabapentin (Gabapentin 300 Mg Capsule) 300 mg PO TID [facility] Last Admin: 06/05/21 09:18 Dose: 300 mg Documented by: YAZMIN Glucose (Glucose Gel 15 Gm Gel..Gram.) 15 gm PO Q15M PRN; Protocol PRN Reason: per Hypoglycemia Standing Ord. Insulin Glargine (Insulin Glargine,Hum.Rec.Anlog 100 Unit/Ml 10 Ml Vial) 20 unit SUBCUT BEDTIME [facility] Last Admin: 06/04/21 21:37 Dose: 20 unit Documented by: JUSTO Insulin Human Lispro (Insulin Lispro 100 Unit/Ml 3 Ml Vial) 0 unit SUBCUT QIDACHS [facility]; Protocol Last Admin: 06/05/21 11:58 Dose: 4 unit Documented by: YAZMIN Losartan Potassium (Losartan Potassium 50 Mg Tablet) 100 mg PO DAILY [facility]; Protocol Last Admin: 06/05/21 09:18 Dose: 100 mg Documented by: YAZMIN Melatonin (Melatonin 3 Mg Tablet) 6 mg PO BEDTIME PRN PRN Reason: Insomnia Last Admin: 06/04/21 23:00 Dose: 6 mg Documented by: JUSTO Methylprednisolone Sodium Succinate (Methylprednisolone Sod Succ 125 Mg/2 Ml Vial) 60 mg IVPUSH Q8H [facility] Last Admin: 06/05/21 09:18 Dose: 60 mg Documented by: YAZMIN Metoprolol Succinate (Metoprolol Succinate Er 25 Mg Tab.Er.24h) 25 mg PO DAILY [facility]; Protocol Last Admin: 06/05/21 09:17 Dose: 25 mg Documented by: YAZMIN Morphine Sulfate (Morphine Sulfate 2 Mg/Ml Cartridge) 2 mg IVPUSH Q3H PRN; Prot ocol PRN Reason: anxiety/restlessness Last Admin: 06/05/21 09:19 Dose: 2 mg Documented by: YAZMIN Pharmacy Consult (Consult Rx Perform Med Rec) 1 each MISCELLANE ONCE PRN PRN Reason: Consult order Pravastatin Sodium (Pravastatin Sodium 40 Mg Tablet) 40 mg PO DAILY [facility] Last Admin: 06/05/21 09:18 Dose: 40 mg Documented by: YAZMIN Senna (Sennosides 8.6 Mg Tablet) 17.2 mg PO BEDTIME PRN PRN Reason: Constipation Sodium Chloride (0.9 % Sodium Chloride Flush 3 Ml Syringe) 3 ml IVFLUSH QSHIFT [facility] Last Admin: 06/05/21 09:18 Dose: 3 ml Documented by: YAZMIN Tamsulosin HCl (Tamsulosin Hcl 0.4 Mg Capsule) 0.4 mg PO DAILY [facility] Last Admin: 06/05/21 09:17 Dose: 0.4 mg Documented by: YAZMIN Tizanidine HCl (Tizanidine Hcl 4 Mg Tablet) 2 mg PO BID PRN PRN Reason: for muscle spasm Last Admin: 06/04/21 15:57 Dose: 2 mg Documented by: YAZMIN Labs CBC & Chem 7: 06/05/21 06:02 06/05/21 06:03 Labs: Laboratory Results - last 24 hr 06/04/21 06/04/21 06/05/21 16:27 20:31 06:02 MCV 89.9 MCH 29.2 MCHC 32.5 RDW 12.6 Plt Count 104 L MPV 10.6 Immature Gran % (Auto) 0.4 Neut % (Auto) 83.0 H Lymph % (Auto) 12.0 L [place] % (Auto) 4.2 Eos % (Auto) 0.4 Baso % (Auto) 0.0 Lymph # (Auto) 1.0 L [place] # (Auto) 0.4 Eos # (Auto) 0.0 Baso # (Auto) 0.0 Abs Immat Gran (auto) 0.03 Absolute Neuts (auto) 6.9 Absolute Nucleated RBC 0.000 Nucleated RBC % (auto) 0.0 Anion Gap Estim Creat Clear Calc Estimated GFR POC Glucose 321 H 216 H Fasting Glucose Calcium Total Bilirubin AST ALT Alkaline Phosphatase Total Protein Albumin 06/05/21 06/05/21 06/05/21 06:03 07:14 11:20 MCV MCH MCHC RDW Plt Count MPV Immature Gran % (Auto) Neut % (Auto) Lymph % (Auto) [place] % (Auto) Eos % (Auto) Baso % (Auto) Lymph # (Auto) [place] # (Auto) Eos # (Auto) Baso # (Auto) Abs Immat Gran (auto) Absolute Neuts (auto) Absolute Nucleated RBC Nucleated RBC % (auto) Anion Gap 11 L Estim Creat Clear Calc 81.8 Estimated GFR > 60 POC Glucose 86 226 H Fasting Glucose 93 D Calcium 8.8 Total Bilirubin 1.0 AST 18 ALT 24 Alkaline Phosphatase 70 Total Protein 6.4 L Albumin 2.7 L Assessment and Plan (1) Acute respiratory distress syndrome (ARDS) due to COVID-19 virus: Status: Acute (2) COVID-19: Status: Acute (3) DMII (diabetes mellitus, type 2): Status: Acute Plan 80-year-old male with a past medical history of hypertension, hyperlipidemia, diabetes, BPH, osteoarthritis, generalized anxiety, depression, opiate dependence on Suboxone; presented to the hospital today with a chief complaint of shortness of breath.? ? Noted to have acute hypoxic respiratory failure in the setting of COVID-19 pneumonia.? Admitted for further management.? 1.Acute, severe hypoxic respiratory failure - more alert today; family in with good effect -Dexametasone (02/13) completed 06/03/21...Solumedrol pulse dose 60 q 8hrs -Baricitinib (01/18) -Titrate O2 as tolerated.....continues to require High flow 2.Diabetes - Lantus/Lispro SS -acceptable control - adjust as indiacted 3.History of anxiety / depression - Continue home clonazepam, clonidine, fluoxetine, gabapentin. 4.History of opiate dependence -On Suboxone. ? addiction Medicine following DVT prophylaxis:? Lovenox Code status:? Full Code Quality Stroke Does the patient have a stroke diagnosis?: No VTE Prior VTE?: No VTE Risk Level:: Medical - moderate - high VTE Device Contraindication: Treatment Not Indicated VTE Drug Contraindication: N/A - Med Ordered
[2021-06-05] MEDS: TiZANidine HCL 4 MG TABLET 2 MG PO (14:36)
[2021-06-05 16:05] LABS: Glucose, Whole Blood 439 mg/dL (60-115)
[2021-06-05] MEDS: Melatonin 3 MG TABLET 6 MG PO (20:15)
[2021-06-05] MEDS: LORazepam 2 MG/ML VIAL 1 MG IVPUSH (20:15)
--- NOTE | 2021-06-05 20:36 | PC.NURSE ---
Behavior During my assessment and outside medical sales representative noted that he was frustrated and doesn't want to be here. Pt lungs had some fine crackles throughout and sounded worse than he did yesterday. was made aware, he ordered a repeat CXR. Patient family was called and updated, His and daughter were given approval to see him to see if that may influence his motivation and demeanor. Family was gowned and visited him briefly; pt did seem to be feeling better at that time. Kept pt company and fed him while oxygenating him to ensure that his saturations were maintained. He ate 100% all his meals and consumed 600 ML of fluid during my shift (juice, water, ensure). Pt noted that he doesn't want to deal with his treatment anymore, I med Pt was compliant until Approximately 1600; Pt then began removing his O2 mask completely and began desatting to 60's-70's. Pt mask was replaced on his face; afterwhich he repeatedly kept removing the mask. He was educated on the importance of the oxygen, however he responded with I'd rather , I just want to get out of her an go home to my family . was made aware. Pt's daughter was called and she spoke with him to try to encourage him to be more cooperative. Remained in room wile she spoke with him and he instructed to hang up the phone because she doesn't make sense. . He doesn't believe that he's being told the truth an that he was forced to come here room his home. MD made of aware of situation and not that he'd be up shortly. Soft restraints were ordered around 1930; MD will sign form in a.m as he had left facility. Ativan IV was also ordered by oncoming to see if that helps to making him relax. Restraints will be reassessed by RN on shift. Pt could possibly benefit from a psych consult!!
[2021-06-05 20:44] LABS: Glucose, Whole Blood 376 mg/dL (60-115)
[2021-06-05] MEDS: Enoxaparin Sodium 40 MG/0.4 ML SYRINGE SUBCUT (22:14)
[2021-06-05] MEDS: Insulin Glargine,Hum.rec.anlog 100 UNIT/ML 10 ML VIAL 20 UNIT SUBCUT (22:14)
[2021-06-06] VITALS (16 sets, daily range): BP systolic 101–166; BP diastolic 63–77; PULSE 52–89; RESP 18–22; TEMP 36.2–37.1; O2SAT 84–97
[2021-06-06 06:37] LABS: Alanine Aminotransferase 25 U/L (0-40); Albumin Level 2.7 g/dL (3.5-5.0); Alkaline Phosphatase 69 U/L (39-117); Anion Gap 10 (12-20); Aspartate Amino Transferase 17 U/L (5-37); Bilirubin Total 0.9 mg/dL (0.0-1.0); Blood Urea Nitrogen 30 mg/dL (9-16); Calcium 8.9 mg/dL (8.4-10.2); Carbon Dioxide 29 mmol/L (22-29); Chloride 101 mmol/L (96-108); Creatinine Clr Calc Pharmacy 76.1; Estimated Glomerular Filt Rate > 60; Glucose Fasting 230 mg/dL (60-99); Potassium 4.6 mmol/L (3.3-5.1); Sodium 135 mmol/L (135-145); Total Protein 6.3 g/dL (6.5-8.0)
[2021-06-06 06:39] LABS: Hemoglobin 12.2 g/dl (14.0-18.0); Imm Gran Abs Auto 0.03 X10*3/uL (0.00-0.03); Imm Gran Pct Auto 0.4 % (0.0-0.4); Lymphocytes Absolute Auto 0.4 X10*3/uL (1.2-4.9); Lymphocytes Percent Auto 5.7 % (20-40); MANUAL DIFF FLAG SCAN; Mean Corpuscular Hemoglobin 29.2 pg (27.0-33.0); Mean Corpuscular Volume 88.5 fL (80.0-98.0); Mean Platelet Volume 11.2 fL (9.4-12.4); Monocytes Absolute Auto 0.1 X10*3/uL (0.1-1.2); Monocytes Percent Auto 1.5 % (2-11); Neutrophils Percent Auto 92.4 % (45-73); Red Blood Count 4.18 X10*6/uL (4.60-5.80); Red Cell Distribution Width 12.4 % (11.0-16.0); SCAN SMEAR FLAG 1; White Blood Count 7.6 X10*3/uL (4.8-10.8)
[2021-06-06 06:47] LABS: Platelet Count 98 X10*3/uL (160-400)
[2021-06-06 07:12] LABS: SLIDE REVIEW VERIFIED
[2021-06-06 07:14] LABS: Glucose, Whole Blood 203 mg/dL (60-115)
[2021-06-06] MEDS: methylPREDNISolone Sod Succ 125 MG/2 ML VIAL 60 MG IVPUSH ×3 (08:13→23:31)
[2021-06-06] MEDS: Losartan Potassium 50 MG TABLET 100 MG PO (08:13)
[2021-06-06] MEDS: 0.9 % Sodium Chloride Flush 3 ML SYRINGE IVFLUSH ×3 (08:14→21:03)
[2021-06-06] MEDS: Metoprolol Succinate ER 25 MG TAB.ER.24H PO (08:14)
[2021-06-06] MEDS: Tamsulosin HCL 0.4 MG CAPSULE PO (08:14)
[2021-06-06] MEDS: Pravastatin Sodium 40 MG TABLET PO (08:14)
[2021-06-06] MEDS: Gabapentin 300 MG CAPSULE PO ×3 (08:14→21:03)
[2021-06-06] MEDS: Insulin Lispro 100 UNIT/ML 3 ML VIAL SUBCUT ×4 (08:15→21:02)
[2021-06-06] MEDS: FLUoxetine HCl 20 MG CAPSULE PO (08:15)
[2021-06-06 11:23] LABS: Glucose, Whole Blood 207 mg/dL (60-115)
[2021-06-06] MEDS: Morphine Sulfate 2 MG/ML CARTRIDGE IVPUSH ×2 (11:38→16:11)
--- NOTE | 2021-06-06 14:47 | P.PNIM_ITS ---
Subjective Subjective Date of Service: 06/06/21 Interval History: No acute issues overnight. Still on HF O2 Review of Systems Denies CP Denies SOB Deneies N/V/D Physical Exam Verdana 4l Vital Signs: Verdana 4d Verdana 4d Vital Signs: Verdana 4d Verdana 4Bd Last Vital Signs Verdana 4d Planer Stone New 4d Planer Stone New 4d Temp 98.8 F 06/06/21 14:00 Planer Stone New 4d Pulse 84 06/06/21 14:00 Planer Stone New 4d Resp 20 06/06/21 14:00 BP 101/67 06/06/21 14:00 Pulse Ox 96 06/06/21 14:00 BMI result Body Mass Index 28.3 Const: Other: No acute distress Resp: Other: Diminished at bases with scant inspiratory crackles Cardio: Other: -S4/+S1/S2_S3 M/R/G GI: Other: Soft NT/ND +NABS x 4 quads Extrem: Other: no edema bilat Objective Data Active Medications Acetaminophen (Acetaminophen 325 Mg Tablet) 650 mg PO Q6H PRN PRN Reason: Pain, Mild (Pain Scale 1-3) Last Admin: 05/26/21 17:27 Dose: 650 mg Documented by: JACINTO Baricitinib (Baricitinib 2 Mg Tablet) 4 mg PO Q24H COUNTS [facility] 234 BEDS AT [facility] Stop: 06/08/21 09:01 Last Admin: 06/06/21 08:13 Dose: 4 mg Documented by: GIFTY Dextrose (Dextrose 50 % 25 Gm/50 Ml Syringe) 25 gm IVPUSH Q15M PRN; Protocol PRN Reason: per Hypoglycemia Standing Ord. Enoxaparin Sodium (Enoxaparin Sodium 40 Mg/0.4 Ml Syringe) 40 mg SUBCUT Q24H COUNTS INCLUDE 234 BEDS AT [facility] Last Admin: 06/05/21 22:14 Dose: 40 mg Documented by: KAYLEN Fluoxetine HCl (Fluoxetine Hcl 20 Mg Capsule) 20 mg PO DAILY COUNTS [facility]CLUDE 234 BEDS AT [facility] Last Admin: 06/06/21 08:15 Dose: 20 mg Documented by: GIFTY Gabapentin (Gabapentin 300 Mg Capsule) 300 mg PO TID COUNTS INCLUDE 234 BEDS AT [facility] Last Admin: 06/06/21 08:14 Dose: 300 mg Documented by: GIFTY Glucose (Glucose Gel 15 Gm Gel..Gram.) 15 gm PO Q15M PRN; Protocol PRN Reason: per Hypoglycemia Standing Ord. Insulin Glargine (Insulin Glargine,Hum.Rec.Anlog 100 Unit/Ml 10 Ml Vial) 20 unit SUBCUT BEDTIME COUNTS INCLUDE 234 BEDS AT [facility] Last Admin: 06/05/21 22:14 Dose: 20 unit Documented by: KAYLEN Insulin Human Lispro (Insulin Lispro 100 Unit/Ml 3 Ml Vial) 0 unit SUBCUT QIDACHS COUNTS INCLUDE 234 BEDS AT [facility]; Protocol Last Admin: 06/06/21 11:53 Dose: 4 unit Documented by: GIFTY Losartan Potassium (Losartan Potassium 50 Mg Tablet) 100 mg PO DAILY COUNTS [facility]CLUDE 234 BEDS AT [facility]; Protocol Last Admin: 06/06/21 08:13 Dose: 100 mg Documented by: GIFTY Melatonin (Melatonin 3 Mg Tablet) 6 mg PO BEDTIME PRN PRN Reason: Insomnia Last Admin: 06/05/21 20:15 Dose: 6 mg Documented by: KAYLEN Methylprednisolone Sodium Succinate (Methylprednisolone Sod Succ 125 Mg/2 Ml Vial) 60 mg IVPUSH Q8H COUNTS INCLUDE 234 BEDS AT [facility] Last Admin: 06/06/21 08:13 Dose: 60 mg Documented by: GIFTY Metoprolol Succinate (Metoprolol Succinate Er 25 Mg Tab.Er.24h) 25 mg PO DAILY COUNTS [facility]CLUDE 234 BEDS AT [facility]; Protocol Last Admin: 06/06/21 08:14 Dose: 25 mg Documented by: GIFTY Morphine Sulfate (Morphine Sulfate 2 Mg/Ml Cartridge) 2 mg IVPUSH Q3H PRN; Protocol PRN Reason: anxiety/restlessness Last Admin: 06/06/21 11:38 Dose: 2 mg Documented by: GIFTY Pharmacy Consult (Consult Rx Perform Med Rec) 1 each MISCELLANE ONCE PRN PRN Reason: Consult order Pravastatin Sodium (Pravastatin Sodium 40 Mg Tablet) 40 mg PO DAILY COUNTS [facility]CLUDE 234 BEDS AT [facility] Last Admin: 06/06/21 08:14 Dose: 40 mg Documented by: GIFTY Senna (Sennosides 8.6 Mg Tablet) 17.2 mg PO BEDTIME PRN PRN Reason: Constipation Sodium Chloride (0.9 % Sodium Chloride Flush 3 Ml Syringe) 3 ml IVFLUSH QSHIFT COUNTS INCLUDE 234 BEDS AT [facility] Last Admin: 06/06/21 08:14 Dose: 3 ml Documented by: GIFTY Tamsulosin HCl (Tamsulosin Hcl 0.4 Mg Capsule) 0.4 mg PO DAILY COUNTS [facility]CLUDE 234 BEDS AT [facility] Last Admin: 06/06/21 08:14 Dose: 0.4 mg Documented by: GIFTY Tizanidine HCl (Tizanidine Hcl 4 Mg Tablet) 2 mg PO BID PRN PRN Reason: for muscle spasm Last Admin: 06/05/21 14:36 Dose: 2 mg Documented by: YAZMIN Labs CBC & Chem 7: 06/06/21 05:39 06/06/21 05:39 Labs: Laboratory Results - last 24 hr 06/05/21 06/05/21 06/06/21 16:01 20:39 05:39 MCV 88.5 MCH 29.2 MCHC 33.0 RDW 12.4 Plt Count 98 L MPV 11.2 Immature Gran % (Auto) 0.4 Neut % (Auto) 92.4 H Lymph % (Auto) 5.7 L [place] % (Auto) 1.5 L Eos % (Auto) 0.0 Baso % (Auto) 0.0 Lymph # (Auto) 0.4 L [place] # (Auto) 0.1 Eos # (Auto) 0.0 Baso # (Auto) 0.0 Abs Immat Gran (auto) 0.03 Absolute Neuts (auto) 7.0 Absolute Nucleated RBC 0.000 Nucleated RBC % (auto) 0.0 Smear Tech's Comments VERIFIED Anion Gap Estim Creat Clear Calc Estimated GFR POC Glucose 439 H* 376 H* Fasting Glucose Calcium Total Bilirubin AST ALT Alkaline Phosphatase Total Protein Albumin 06/06/21 06/06/21 06/06/21 05:39 07:11 11:15 MCV MCH MCHC RDW Plt Count MPV Immature Gran % (Auto) Neut % (Auto) Lymph % (Auto) [place] % (Auto) Eos % (Auto) Baso % (Auto) Lymph # (Auto) [place] # (Auto) Eos # (Auto) Baso # (Auto) Abs Immat Gran (auto) Absolute Neuts (auto) Absolute Nucleated RBC Nucleated RBC % (auto) Smear Tech's Comments Anion Gap 10 L Estim Creat Clear Calc 76.1 Estimated GFR > 60 POC Glucose 203 H 207 H Fasting Glucose 230 H D Calcium 8.9 Total Bilirubin 0.9 AST 17 ALT 25 Alkaline Phosphatase 69 Total Protein 6.3 L Albumin 2.7 L Assessment and Plan (1) Acute respiratory distress syndrome (ARDS) due to COVID-19 virus: Status: Acute (2) DMII (diabetes mellitus, type 2): Status: Acute (3) HTN (hypertension): Status: Acute Plan 80-year-old male with a past medical history of hypertension, hyperlipidemia, diabetes, BPH, osteoarthritis, generalized anxiety, depression, opiate dependence on Suboxone; presented to the hospital today with a chief complaint of shortness of breath.? ? Noted to have acute hypoxic respiratory failure in the setting of COVID-19 pneumonia.? Admitted for further management.? 1.Acute, severe hypoxic respiratory failure - Remains on HF O2. Essentially no change -Dexametasone (02/13) completed 06/03/21...Solumedrol pulse dose 60 q 8hrs -Baricitinib (02/17) 2.Diabetes - Lantus/Lispro SS -acceptable control - adjust as indiacted 3.History of anxiety / depression - Continue home clonazepam, clonidine, fluoxetine, gabapentin. 4.History of opiate dependence -On Suboxone. ? addiction Medicine following DVT prophylaxis:? Lovenox Code status:? Full Code Quality Stroke Does the patient have a stroke diagnosis?: No VTE Prior VTE?: No VTE Risk Level:: Medical - moderate - high VTE Device Contraindication: Treatment Not Indicated VTE Drug Contraindication: N/A - Med Ordered
--- NOTE | 2021-06-06 15:10 | PC.NURSE ---
Pt is alert and oriented x3 but is confused and forgetful at times. Pt speaks mainly ukrainian but can Understand some [place]ralt[place]. Pt is on soft hand restraints for pulling out his Oxgen tubings. VS checked every 2 hours and toileting and nutritional needs were offered throughout. Bilateral upper extremeties also checked for injuries At 11am pt managed to bend and pulled out his Oxygen tubing and he desatted to the 50s and 60s. Pt went back after reapplying the Oxygen. Pt continues on 55L/100% Desir. He has an intermittent cough and LS dim throughout with coarse crackles to the bases and expiratory wheezes.
[2021-06-06 16:31] LABS: Glucose, Whole Blood 312 mg/dL (60-115)
[2021-06-06 20:21] LABS: Glucose, Whole Blood 350 mg/dL (60-115)
[2021-06-06] MEDS: Insulin Glargine,Hum.rec.anlog 100 UNIT/ML 10 ML VIAL 20 UNIT SUBCUT (21:02)
[2021-06-06] MEDS: clonazePAM 1 MG TABLET PO (21:04)
[2021-06-06] MEDS: Enoxaparin Sodium 40 MG/0.4 ML SYRINGE SUBCUT (23:32)
[2021-06-07] VITALS (20 sets, daily range): BP systolic 122–164; BP diastolic 53–80; PULSE 51–97; RESP 18–22; TEMP 36.2–37.2; O2SAT 91–98
[2021-06-07 06:52] LABS: Basophils Percent Auto 0.1 % (0-2); Hemoglobin 12.2 g/dl (14.0-18.0); Imm Gran Abs Auto 0.08 X10*3/uL (0.00-0.03); Imm Gran Pct Auto 0.6 % (0.0-0.4); Lymphocytes Absolute Auto 0.5 X10*3/uL (1.2-4.9); MANUAL DIFF FLAG SCAN; Mean Corpuscular Hemoglobin 29.7 pg (27.0-33.0); Mean Platelet Volume 11.5 fL (9.4-12.4); Monocytes Absolute Auto 0.3 X10*3/uL (0.1-1.2); Monocytes Percent Auto 2.1 % (2-11); Neutrophils Absolute Auto 11.8 x10*3/uL (2.0-8.3); Neutrophils Percent Auto 93.2 % (45-73); Red Blood Count 4.11 X10*6/uL (4.60-5.80); Red Cell Distribution Width 12.6 % (11.0-16.0); SCAN SMEAR FLAG 1; White Blood Count 12.6 X10*3/uL (4.8-10.8)
[2021-06-07 07:04] LABS: Alanine Aminotransferase 28 U/L (0-40); Albumin Level 2.6 g/dL (3.5-5.0); Alkaline Phosphatase 70 U/L (39-117); Anion Gap 13 (12-20); Aspartate Amino Transferase 29 U/L (5-37); Blood Urea Nitrogen 29 mg/dL (9-16); Calcium 8.6 mg/dL (8.4-10.2); Carbon Dioxide 24 mmol/L (22-29); Chloride 102 mmol/L (96-108); Creatinine Clr Calc Pharmacy 92.1; Estimated Glomerular Filt Rate > 60; Glucose Fasting 158 mg/dL (60-99); Potassium 4.6 mmol/L (3.3-5.1); Sodium 134 mmol/L (135-145); Total Protein 6.3 g/dL (6.5-8.0)
[2021-06-07 07:21] LABS: Platelet Count 95 X10*3/uL (160-400)
[2021-06-07 07:26] LABS: Glucose, Whole Blood 153 mg/dL (60-115)
[2021-06-07 08:04] LABS: SLIDE REVIEW VERIFIED
[2021-06-07] MEDS: 0.9 % Sodium Chloride Flush 3 ML SYRINGE IVFLUSH ×3 (08:07→20:47)
[2021-06-07] MEDS: Insulin Lispro 100 UNIT/ML 3 ML VIAL SUBCUT ×4 (08:07→20:47)
[2021-06-07] MEDS: Losartan Potassium 50 MG TABLET 100 MG PO (08:08)
[2021-06-07] MEDS: FLUoxetine HCl 20 MG CAPSULE PO (08:08)
[2021-06-07] MEDS: Metoprolol Succinate ER 25 MG TAB.ER.24H PO (08:08)
[2021-06-07] MEDS: clonazePAM 1 MG TABLET PO ×2 (08:08→20:46)
[2021-06-07] MEDS: Gabapentin 300 MG CAPSULE PO ×3 (08:08→20:46)
[2021-06-07] MEDS: methylPREDNISolone Sod Succ 125 MG/2 ML VIAL 60 MG IVPUSH ×3 (08:08→23:50)
[2021-06-07] MEDS: Tamsulosin HCL 0.4 MG CAPSULE PO (08:09)
[2021-06-07] MEDS: Pravastatin Sodium 40 MG TABLET PO (08:09)
[2021-06-07] MEDS: Morphine Sulfate 2 MG/ML CARTRIDGE IVPUSH ×4 (08:09→22:02)
[2021-06-07 11:24] LABS: Glucose, Whole Blood 266 mg/dL (60-115)
--- NOTE | 2021-06-07 11:31 | P.PNIM_ITS ---
Subjective Subjective Date of Service: 06/07/21 Interval History: f/u covid hypoxia, remains on high flow, periods of agiation taking of O2 mask and had to be restraint Review of Systems no fever no cough Physical Exam Verdana 4l Vital Signs: Verdana 4d Verdana 4d Vital Signs: Verdana 4d Verdana 4Bd Last Vital Signs Verdana 4d [employer] Technical Lead Senior Developer New 4d [employer] Technical Lead Senior Developer New 4d Temp 97.9 F 06/07/21 11:19 [employer] Technical Lead Senior Developer New 4d Pulse 66 06/07/21 11:19 [employer] Technical Lead Senior Developer New 4d Resp 18 06/07/21 11:19 BP 129/56 L 06/07/21 11:19 Pulse Ox 93 06/07/21 11:19 BMI result Body Mass Index 28.3 Const: Other: General: AO X 1, no acute distress Resp: normal resp effort CVS: S1,S2,RRR GI: +BS, NT, no distention Skin: No rash Neuro: motor grossly intact Psych: appropriate affect Objective Data Active Medications Acetaminophen (Acetaminophen 325 Mg Tablet) 650 mg PO Q6H PRN PRN Reason: Pain, Mild (Pain Scale 1-3) Last Admin: 05/26/21 17:27 Dose: 650 mg Documented by: JACINTO Baricitinib (Baricitinib 2 Mg Tablet) 4 mg PO Q24H [facility] Stop: 06/08/21 09:01 Last Admin: 06/07/21 08:07 Dose: 4 mg Documented by: GIFTY Clonazepam (Clonazepam 1 Mg Tablet) 1 mg PO BID [facility] Last Admin: 06/07/21 08:08 Dose: 1 mg Documented by: GIFTY Dextrose (Dextrose 50 % 25 Gm/50 Ml Syringe) 25 gm IVPUSH Q15M PRN; Protocol PRN Reason: per Hypoglycemia Standing Ord. Enoxaparin Sodium (Enoxaparin Sodium 40 Mg/0.4 Ml Syringe) 40 mg SUBCUT Q24H [facility] Last Admin: 06/06/21 23:32 Dose: 40 mg Documented by: EMILY Fluoxetine HCl (Fluoxetine Hcl 20 Mg Capsule) 20 mg PO DAILY [facility] Last Admin: 06/07/21 08:08 Dose: 20 mg Documented by: GIFTY Gabapentin (Gabapentin 300 Mg Capsule) 300 mg PO TID [facility] Last Admin: 06/07/21 08:08 Dose: 300 mg Documented by: GIFTY Glucose (Glucose Gel 15 Gm Gel..Gram.) 15 gm PO Q15M PRN; Protocol PRN Reason: per Hypoglycemia Standing Ord. Insulin Glargine (Insulin Glargine,Hum.Rec.Anlog 100 Unit/Ml 10 Ml Vial) 20 unit SUBCUT BEDTIME [facility] Last Admin: 06/06/21 21:02 Dose: 20 unit Documented by: EMILY Insulin Human Lispro (Insulin Lispro 100 Unit/Ml 3 Ml Vial) 0 unit SUBCUT QIDACHS [facility]; Protocol Last Admin: 06/07/21 08:07 Dose: 2 unit Documented by: GIFTY Losartan Potassium (Losartan Potassium 50 Mg Tablet) 100 mg PO DAILY [facility]; Protocol Last Admin: 06/07/21 08:08 Dose: 100 mg Documented by: GIFTY Melatonin (Melatonin 3 Mg Tablet) 6 mg PO BEDTIME PRN PRN Reason: Insomnia Last Admin: 06/05/21 20:15 Dose: 6 mg Documented by: KAYLEN Methylprednisolone Sodium Succinate (Methylprednisolone Sod Succ 125 Mg/2 Ml Vial) 60 mg IVPUSH Q8H [facility] Last Admin: 06/07/21 08:08 Dose: 60 mg Documented by: GIFTY Metoprolol Succinate (Metoprolol Succinate Er 25 Mg Tab.Er.24h) 25 mg PO DAILY [facility]; Protocol Last Admin: 06/07/21 08:08 Dose: 25 mg Documented by: GIFTY Morphine Sulfate (Morphine Sulfate 2 Mg/Ml Cartridge) 2 mg IVPUSH Q3H PRN; Protocol PRN Reason: anxiety/restlessness Last Admin: 06/07/21 08:09 Dose: 2 mg Documented by: GIFTY Pharmacy Consult (Consult Rx Perform Med Rec) 1 each MISCELLANE ONCE PRN PRN Reason: Consult order Pravastatin Sodium (Pravastatin Sodium 40 Mg Tablet) 40 mg PO DAILY [facility] Last Admin: 06/07/21 08:09 Dose: 40 mg Documented by: GIFTY Senna (Sennosides 8.6 Mg Tablet) 17.2 mg PO BEDTIME PRN PRN Reason: Constipation Sodium Chloride (0.9 % Sodium Chloride Flush 3 Ml Syringe) 3 ml IVFLUSH QSHIFT [facility] Last Admin: 06/07/21 08:07 Dose: 3 ml Documented by: GIFTY Tamsulosin HCl (Tamsulosin Hcl 0.4 Mg Capsule) 0.4 mg PO DAILY ANY Last Admin: 06/07/21 08:09 Dose: 0.4 mg Documented by: GIFTY Tizanidine HCl (Tizanidine Hcl 4 Mg Tablet) 2 mg PO BID PRN PRN Reason: for muscle spasm Last Admin: 06/05/21 14:36 Dose: 2 mg Documented by: YAZMIN Labs CBC & Chem 7: 06/07/21 06:12 06/07/21 06:12 Labs: Laboratory Results - last 24 hr 06/06/21 06/06/21 06/07/21 16:14 20:01 06:12 MCV 90.0 MCH 29.7 MCHC 33.0 RDW 12.6 Plt Count 95 L MPV 11.5 Immature Gran % (Auto) 0.6 H Neut % (Auto) 93.2 H Lymph % (Auto) 4.0 L Person % (Auto) 2.1 Eos % (Auto) 0.0 Baso % (Auto) 0.1 Lymph # (Auto) 0.5 L Person # (Auto) 0.3 Eos # (Auto) 0.0 Baso # (Auto) 0.0 Abs Immat Gran (auto) 0.08 H Absolute Neuts (auto) 11.8 H Absolute Nucleated RBC 0.000 Nucleated RBC % (auto) 0.0 Smear Tech's Comments VERIFIED Anion Gap Estim Creat Clear Calc Estimated GFR POC Glucose 312 H 350 H* Fasting Glucose Calcium Total Bilirubin AST ALT Alkaline Phosphatase Total Protein Albumin 06/07/21 06/07/21 06/07/21 06:12 07:23 11:21 MCV MCH MCHC RDW Plt Count MPV Immature Gran % (Auto) Neut % (Auto) Lymph % (Auto) Person % (Auto) Eos % (Auto) Baso % (Auto) Lymph # (Auto) Person # (Auto) Eos # (Auto) Baso # (Auto) Abs Immat Gran (auto) Absolute Neuts (auto) Absolute Nucleated RBC Nucleated RBC % (auto) Smear Tech's Comments Anion Gap 13 Estim Creat Clear Calc 92.1 Estimated GFR > 60 POC Glucose 153 H 266 H Fasting Glucose 158 H Calcium 8.6 Total Bilirubin 1.0 AST 29 D ALT 28 Alkaline Phosphatase 70 Total Protein 6.3 L Albumin 2.6 L Assessment and Plan (1) Acute respiratory failure with hypoxia: Status: Acute Plan 80-year-old male with a past medical history of hypertension, hyperlipidemia, diabetes, BPH, osteoarthritis, generalized anxiety, depression, opiate dependence on Suboxone; presented to the hospital today with a chief complaint of shortness of breath.? ? Noted to have acute hypoxic respiratory failure in the setting of COVID-19 pneumonia.? Admitted for further management.? 1.Acute, severe hypoxic respiratory failure d/t covid - Remains on HF O2. Essentially no change -Dexametasone (02/13) completed 06/03/21...Solumedrol pulse dose 60 q 8hrs -Baricitinib (03/20) 2.Diabetes - Lantus/Lispro SS -acceptable control - adjust as indiacted 3.History of anxiety / depression - Continue home clonazepam, clonidine, fluoxetine, gabapentin. 4.History of opiate dependence -On Suboxone. ? addiction Medicine following 5. Agitation/confusion likely from hypoxia, consider low dose Psychotropic to control behavior DVT prophylaxis:? Lovenox Code status:? Full Code Quality Stroke Does the patient have a stroke diagnosis?: No VTE Prior VTE?: No VTE Risk Level:: Medical - moderate - high VTE Device Contraindication: Treatment Not Indicated VTE Drug Contraindication: N/A - Med Ordered
--- NOTE | 2021-06-07 16:15 | PC.NURSE ---
Pt alert and oriented x3 but appears confused at times. Pt does not seem to understand his Oxygen needs even when explained in Iranian. Pt continues on HiFlo 55L /100% with a NRB. Pt would have periods of anxiety and would pull off hius Oxygen tubing and then he would desat to the 60s, therefore requiring soft hand restraints so he dose not pull Oxygen tubing off. Pt assed Q2hrs for nutrition, toileting nedes and CMS. Pt reminded and educated several times to leave it.
[2021-06-07 16:20] LABS: Glucose, Whole Blood 272 mg/dL (60-115)
[2021-06-07 20:07] LABS: Glucose, Whole Blood 321 mg/dL (60-115)
[2021-06-07] MEDS: Enoxaparin Sodium 40 MG/0.4 ML SYRINGE SUBCUT (20:46)
[2021-06-07] MEDS: Insulin Glargine,Hum.rec.anlog 100 UNIT/ML 10 ML VIAL 20 UNIT SUBCUT (20:47)
[2021-06-07] MEDS: Melatonin 3 MG TABLET 6 MG PO (22:03)
[2021-06-08] VITALS (14 sets, daily range): BP systolic 94–171; BP diastolic 47–80; PULSE 49–66; RESP 14–22; TEMP 36–37.2; O2SAT 84–98
[2021-06-08 07:15] LABS: Glucose, Whole Blood 210 mg/dL (60-115)
[2021-06-08] MEDS: Losartan Potassium 50 MG TABLET 100 MG PO (10:08)
[2021-06-08] MEDS: Pravastatin Sodium 40 MG TABLET PO (10:08)
[2021-06-08] MEDS: clonazePAM 1 MG TABLET PO ×2 (10:09→20:47)
[2021-06-08] MEDS: Tamsulosin HCL 0.4 MG CAPSULE PO (10:09)
[2021-06-08] MEDS: FLUoxetine HCl 20 MG CAPSULE PO (10:09)
[2021-06-08] MEDS: methylPREDNISolone Sod Succ 125 MG/2 ML VIAL 60 MG IVPUSH ×2 (10:09→16:49)
[2021-06-08] MEDS: Gabapentin 300 MG CAPSULE PO ×3 (10:09→20:48)
[2021-06-08] MEDS: Metoprolol Succinate ER 25 MG TAB.ER.24H PO (10:09)
[2021-06-08] MEDS: 0.9 % Sodium Chloride Flush 3 ML SYRINGE IVFLUSH ×3 (10:10→20:48)
[2021-06-08 11:02] LABS: Glucose, Whole Blood 236 mg/dL (60-115)
--- NOTE | 2021-06-08 11:32 | HO.PM.IMPN ---
Subjective Subjective Date of Service: 06/08/21 Interval History: f/u covid hypoxia, remains on high flow, periods of agiation taking of O2 mask and had to be restraint, but more alert and less agitated today also.. Still fairly hypoxic and HF + NRB Review of Systems no fever no cough Physical Exam Vital Signs: Vital Signs: Last Vital Signs Temp 97.7 F 06/08/21 11:28 Pulse 63 06/08/21 11:28 Resp 18 06/08/21 11:28 BP 141/63 H 06/08/21 11:28 Pulse Ox 92 06/08/21 11:28 BMI result Body Mass Index 28.3 Const: Other: General: AO X 2, no acute distress Resp: normal resp effort CVS: S1,S2,RRR GI: +BS, NT, no distention Skin: No rash Neuro: motor grossly intact Psych: appropriate affect Objective Data Active Medications Acetaminophen (Acetaminophen 325 Mg Tablet) 650 mg PO Q6H PRN PRN Reason: Pain, Mild (Pain Scale 1-3) Last Admin: 05/26/21 17:27 Dose: 650 mg Documented by: JACINTO Clonazepam (Clonazepam 1 Mg Tablet) 1 mg PO BID [facility] Last Admin: 06/08/21 10:09 Dose: 1 mg Documented by: KINA Dextrose (Dextrose 50 % 25 Gm/50 Ml Syringe) 25 gm IVPUSH Q15M PRN; Protocol PRN Reason: per Hypoglycemia Standing Ord. Enoxaparin Sodium (Enoxaparin Sodium 40 Mg/0.4 Ml Syringe) 40 mg SUBCUT Q24H [facility] Last Admin: 06/07/21 20:46 Dose: 40 mg Documented by: EMILY Fluoxetine HCl (Fluoxetine Hcl 20 Mg Capsule) 20 mg PO DAILY [facility] Last Admin: 06/08/21 10:09 Dose: 20 mg Documented by: KINA Gabapentin (Gabapentin 300 Mg Capsule) 300 mg PO TID [facility] Last Admin: 06/08/21 10:09 Dose: 300 mg Documented by: KINA Glucose (Glucose Gel 15 Gm Gel..Gram.) 15 gm PO Q15M PRN; Protocol PRN Reason: per Hypoglycemia Standing Ord. Insulin Glargine (Insulin Glargine,Hum.Rec.Anlog 100 Unit/Ml 10 Ml Vial) 20 unit SUBCUT BEDTIME [facility] Last Admin: 06/07/21 20:47 Dose: 20 unit Documented by: EMILY Insulin Human Lispro (Insulin Lispro 100 Unit/Ml 3 Ml Vial) 0 unit SUBCUT QIDACHS [facility]; Protocol Last Admin: 06/08/21 10:49 Dose: Not Given Documented by: KINA Non-Admin Reason: given insulin at 7am by night nurse. Losartan Potassium (Losartan Potassium 50 Mg Tablet) 100 mg PO DAILY [facility]; Protocol Last Admin: 06/08/21 10:08 Dose: 100 mg Documented by: KINA Melatonin (Melatonin 3 Mg Tablet) 6 mg PO BEDTIME PRN PRN Reason: Insomnia Last Admin: 06/07/21 22:03 Dose: 6 mg Documented by: EMILY Methylprednisolone Sodium Succinate (Methylprednisolone Sod Succ 125 Mg/2 Ml Vial) 60 mg IVPUSH Q8H [facility] Last Admin: 06/08/21 10:09 Dose: 60 mg Documented by: KINA Metoprolol Succinate (Metoprolol Succinate Er 25 Mg Tab.Er.24h) 25 mg PO DAILY [facility]; Protocol Last Admin: 06/08/21 10:09 Dose: 25 mg Documented by: KINA Pharmacy Consult (Consult Rx Perform Med Rec) 1 each MISCELLANE ONCE PRN PRN Reason: Consult order Pravastatin Sodium (Pravastatin Sodium 40 Mg Tablet) 40 mg PO DAILY [facility] Last Admin: 06/08/21 10:08 Dose: 40 mg Documented by: KINA Senna (Sennosides 8.6 Mg Tablet) 17.2 mg PO BEDTIME PRN PRN Reason: Constipation Sodium Chloride (0.9 % Sodium Chloride Flush 3 Ml Syringe) 3 ml IVFLUSH QSHIFT [facility] Last Admin: 06/08/21 10:10 Dose: 3 ml Documented by: KINA Tamsulosin HCl (Tamsulosin Hcl 0.4 Mg Capsule) 0.4 mg PO DAILY [facility] Last Admin: 06/08/21 10:09 Dose: 0.4 mg Documented by: KINA Tizanidine HCl (Tizanidine Hcl 4 Mg Tablet) 2 mg PO BID PRN PRN Reason: for muscle spasm Last Admin: 06/05/21 14:36 Dose: 2 mg Documented by: YAZMIN Labs CBC & Chem 7: 06/07/21 06:12 06/07/21 06:12 Labs: Laboratory Results - last 24 hr 06/07/21 06/07/21 06/08/21 16:14 20:04 07:07 POC Glucose 272 H 321 H 210 H 06/08/21 10:58 POC Glucose 236 H Assessment and Plan (1) Acute respiratory failure with hypoxia: Status: Acute Plan 80-year-old male with a past medical history of hypertension, hyperlipidemia, diabetes, BPH, osteoarthritis, generalized anxiety, depression, opiate dependence on Suboxone; presented to the hospital today with a chief complaint of shortness of breath.? ? Noted to have acute hypoxic respiratory failure in the setting of COVID-19 pneumonia.? Admitted for further management.? 1.Acute, severe hypoxic respiratory failure d/t covid -Remains on HF O2. Essentially making very small progress -Dexametasone (02/13) completed 06/03/21...Solumedrol pulse dose 60 q 8hrs -Baricitinib (04/19) 2.Diabetes - Lantus/Lispro SS -acceptable control - adjust as indiacted 3.History of anxiety / depression - Continue home clonazepam, clonidine, fluoxetine, gabapentin. 4.History of opiate dependence -On Suboxone. ? addiction Medicine following 5. Agitation/confusion likely from hypoxia, consider low dose Psychotropic to control behavior, consider low marcelle seroquel DVT prophylaxis:? Lovenox Code status:? Full Code Quality Stroke Does the patient have a stroke diagnosis?: No VTE Prior VTE?: No VTE Risk Level:: Medical - moderate - high VTE Device Contraindication: Treatment Not Indicated VTE Drug Contraindication: N/A - Med Ordered
[2021-06-08] MEDS: Insulin Lispro 100 UNIT/ML 3 ML VIAL SUBCUT ×3 (12:38→20:47)
--- NOTE | 2021-06-08 12:51 | P.CDIC_ITS ---
CDI Concurrent Query Documentation Clarification: PHYSICIAN'S DOCUMENTATION REQUEST Date of Query: 06/08/21 1251 Patient Name: Constantin Marinelli Admit Date: 05/24/21 Dear Doctor, A review of the medical record indicates additional documentation may be needed. Please review below and update the documentation accordingly. Clinical Indicators: Verdana 4Bd Risk Factors/Clinical Indicators/Treatments Verdana 4d Per MD progress note 06/07/21: Agitation/confusion likely from hypoxia, consider low dose Psychotropic to control behavior Based on the above, could you clarify in the Progress Notes which, if any of the following, is the most likely etiology of the confusion/altered mental status? * Encephalopathy - indicate type such as metabolic, toxic, septic, alcoholic, hypertensive, etc. * Acute delirium - indicate known or suspected etiology, such as postoperative, due to narcotics or other drugs, etc. * Acute or subacute confusional state due to (specify known or suspected etiology) * Other etiology (please specify) * Unable to determine Use of terms such as suspected, likely, concern for, or probable (associated with a specific diagnosis that is being evaluated, monitored, or treated as if it exists) are acceptable and can be coded in the inpatient setting, when documented at the time of discharge. Thank you, Karen Hardin RN Extension: [phone] Please use your independent medical judgment in providing your response. THIS QUERY IS PART OF THE PERMANENT MEDICAL RECORD Provider Response: Other Other Diagnosis: Delirium
--- NOTE | 2021-06-08 15:33 | MHC.CM.PN ---
per rounds pt not ready for dc still weaning her 02
[2021-06-08 16:13] LABS: Glucose, Whole Blood 248 mg/dL (60-115)
[2021-06-08] MEDS: Sennosides 8.6 MG TABLET 17.2 MG PO (18:08)
[2021-06-08] MEDS: TiZANidine HCL 4 MG TABLET 2 MG PO (18:09)
[2021-06-08] MEDS: Acetaminophen 325 MG TABLET 650 MG PO (18:09)
[2021-06-08 19:33] LABS: Glucose, Whole Blood 339 mg/dL (60-115)
[2021-06-08] MEDS: Insulin Glargine,Hum.rec.anlog 100 UNIT/ML 10 ML VIAL 20 UNIT SUBCUT (20:47)
[2021-06-08] MEDS: Enoxaparin Sodium 40 MG/0.4 ML SYRINGE SUBCUT (20:48)
[2021-06-09] VITALS (18 sets, daily range): BP systolic 142–169; BP diastolic 57–82; PULSE 58–73; RESP 16–30; TEMP 36.1–37.1; O2SAT 90–99
[2021-06-09] MEDS: methylPREDNISolone Sod Succ 125 MG/2 ML VIAL 60 MG IVPUSH ×3 (01:57→16:43)
[2021-06-09] MEDS: Morphine Sulfate 2 MG/ML CARTRIDGE 1 MG IVPUSH ×3 (02:53→20:17)
--- NOTE | 2021-06-09 03:41 | PM.EVENT ---
Event Note Date of Service: 06/09/21 Event Note: [employer] note: Acute Hypoxia: patient had an acute episode of hypoxia saturating in 60s; patient was moved out of the bed to the commode. Immediately patient was placed back on the bed. Patient appeared anxious. But able to talk in full sentences. Patient was on non-rebreather and high-flow oxygen; patient is given a dose of morphine. Subsequently his oxygenation gradually improved and saturating low 90s. Symptomatically improved.
[2021-06-09 07:15] LABS: Glucose, Whole Blood 172 mg/dL (60-115)
[2021-06-09] MEDS: Insulin Lispro 100 UNIT/ML 3 ML VIAL SUBCUT ×4 (08:56→22:21)
[2021-06-09] MEDS: Metoprolol Succinate ER 25 MG TAB.ER.24H PO (09:00)
[2021-06-09] MEDS: Pravastatin Sodium 40 MG TABLET PO (09:00)
[2021-06-09] MEDS: 0.9 % Sodium Chloride Flush 3 ML SYRINGE IVFLUSH ×2 (09:01→16:43)
[2021-06-09] MEDS: Losartan Potassium 50 MG TABLET 100 MG PO (09:01)
[2021-06-09] MEDS: clonazePAM 1 MG TABLET PO ×2 (09:01→22:20)
[2021-06-09] MEDS: Tamsulosin HCL 0.4 MG CAPSULE PO (09:01)
[2021-06-09] MEDS: FLUoxetine HCl 20 MG CAPSULE PO (09:01)
[2021-06-09] MEDS: Gabapentin 300 MG CAPSULE PO ×3 (09:01→22:20)
--- NOTE | 2021-06-09 09:47 | P.PNIM_ITS ---
Subjective Subjective Date of Service: 06/09/21 Interval History: f/u covid hypoxia, remains on high flow, periods of agiation taking of O2 mask and had to be restraint, but more alert and less agitated today also..Persistent hypoxia on HF + NRB..But overall looks more comfortable than yesterday Review of Systems no fever no cough Physical Exam Verdana 4l Vital Signs: Verdana 4d Verdana 4d Vital Signs: Verdana 4d Verdana 4Bd Last Vital Signs Verdana 4d Sat Tutor New 4d Sat Tutor New 4d Temp 97.9 F 06/09/21 08:43 Sat Tutor New 4d Pulse 64 06/09/21 08:43 Sat Tutor New 4d Resp 30 H 06/09/21 08:43 BP 153/72 H 06/09/21 08:43 Pulse Ox 94 06/09/21 08:43 BMI result Body Mass Index 28.3 Const: Other: General: AO X 2, no acute distress Resp: normal resp effort CVS: S1,S2,RRR GI: +BS, NT, no distention Skin: No rash Neuro: motor grossly intact Psych: appropriate affect Objective Data Active Medications Acetaminophen (Acetaminophen 325 Mg Tablet) 650 mg PO Q6H PRN PRN Reason: Pain, Mild (Pain Scale 1-3) Last Admin: 06/08/21 18:09 Dose: 650 mg Documented by: JARRETT Clonazepam (Clonazepam 1 Mg Tablet) 1 mg PO BID [facility] Last Admin: 06/09/21 09:01 Dose: 1 mg Documented by: KINA Dextrose (Dextrose 50 % 25 Gm/50 Ml Syringe) 25 gm IVPUSH Q15M PRN; Protocol PRN Reason: per Hypoglycemia Standing Ord. Enoxaparin Sodium (Enoxaparin Sodium 40 Mg/0.4 Ml Syringe) 40 mg SUBCUT Q24H [facility] Last Admin: 06/08/21 20:48 Dose: 40 mg Documented by: RAMÓN Fluoxetine HCl (Fluoxetine Hcl 20 Mg Capsule) 20 mg PO DAILY [facility] Last Admin: 06/09/21 09:01 Dose: 20 mg Documented by: KINA Gabapentin (Gabapentin 300 Mg Capsule) 300 mg PO TID [facility] Last Admin: 06/09/21 09:01 Dose: 300 mg Documented by: KINA Glucose (Glucose Gel 15 Gm Gel..Gram.) 15 gm PO Q15M PRN; Protocol PRN Reason: per Hypoglycemia Standing Ord. Insulin Glargine (Insulin Glargine,Hum.Rec.Anlog 100 Unit/Ml 10 Ml Vial) 20 unit SUBCUT BEDTIME [facility] Last Admin: 06/08/21 20:47 Dose: 20 unit Documented by: RAMÓN Insulin Human Lispro (Insulin Lispro 100 Unit/Ml 3 Ml Vial) 0 unit SUBCUT QIDACHS [facility]; Protocol Last Admin: 06/09/21 08:56 Dose: 2 unit Documented by: KINA Losartan Potassium (Losartan Potassium 50 Mg Tablet) 100 mg PO DAILY [facility]; Protocol Last Admin: 06/09/21 09:01 Dose: 100 mg Documented by: KINA Melatonin (Melatonin 3 Mg Tablet) 6 mg PO BEDTIME PRN PRN Reason: Insomnia Last Admin: 06/07/21 22:03 Dose: 6 mg Documented by: EMILY Methylprednisolone Sodium Succinate (Methylprednisolone Sod Succ 125 Mg/2 Ml Via l) 60 mg IVPUSH Q8H [facility] Last Admin: 06/09/21 08:58 Dose: 60 mg Documented by: KINA Metoprolol Succinate (Metoprolol Succinate Er 25 Mg Tab.Er.24h) 25 mg PO DAILY [facility]; Protocol Last Admin: 06/09/21 09:00 Dose: 25 mg Documented by: KINA Morphine Sulfate (Morphine Sulfate 2 Mg/Ml Cartridge) 1 mg IVPUSH Q4H PRN; Protocol PRN Reason: Pain, Severe (Pain Scale 7-10) Last Admin: 06/09/21 06:44 Dose: 1 mg Documented by: RAMÓN Pharmacy Consult (Consult Rx Perform Med Rec) 1 each MISCELLANE ONCE PRN PRN Reason: Consult order Pravastatin Sodium (Pravastatin Sodium 40 Mg Tablet) 40 mg PO DAILY [facility] Last Admin: 06/09/21 09:00 Dose: 40 mg Documented by: KINA Senna (Sennosides 8.6 Mg Tablet) 17.2 mg PO BEDTIME PRN PRN Reason: Constipation Last Admin: 06/08/21 18:08 Dose: 17.2 mg Documented by: JARRETT Sodium Chloride (0.9 % Sodium Chloride Flush 3 Ml Syringe) 3 ml IVFLUSH QSHIFT [facility] Last Admin: 06/09/21 09:01 Dose: 3 ml Documented by: KINA Tamsulosin HCl (Tamsulosin Hcl 0.4 Mg Capsule) 0.4 mg PO DAILY [facility] Last Admin: 06/09/21 09:01 Dose: 0.4 mg Documented by: KINA Tizanidine HCl (Tizanidine Hcl 4 Mg Tablet) 2 mg PO BID PRN PRN Reason: for muscle spasm Last Admin: 06/08/21 18:09 Dose: 2 mg Documented by: JARRETT Labs CBC & Chem 7: 06/07/21 06:12 06/07/21 06:12 Labs: Laboratory Results - last 24 hr 06/08/21 06/08/21 06/08/21 10:58 16:08 19:29 POC Glucose 236 H 248 H 339 H 06/09/21 07:09 POC Glucose 172 H Assessment and Plan (1) Acute respiratory failure with hypoxia: Status: Acute Plan 80-year-old male with a past medical history of hypertension, hyperlipidemia, diabetes, BPH, osteoarthritis, generalized anxiety, depression, opiate dependence on Suboxone; presented to the hospital today with a chief complaint of shortness of breath.? ? Noted to have acute hypoxic respiratory failure in the setting of COVID-19 pneumonia.? Admitted for further management.? 1.Acute, severe hypoxic respiratory failure d/t covid -Remains on HF O2. Essentially making very small progress -Dexametasone (02/13) completed 06/03/21...Solumedrol pulse dose 60 q 8hrs -Baricitinib () 2.Diabetes - Lantus/Lispro SS -acceptable control - adjust as indiacted 3.History of anxiety / depression and intermittent delirium - Continue home clonazepam, clonidine, fluoxetine, gabapentin. 4.History of opiate dependence -On Suboxone. ? addiction Medicine following 5. Agitation/confusion likely from hypoxia related delirium consider low dose Psychotropic to control behavior, consider low marcelle seroquel Overall seems a bit better today DVT prophylaxis:? Lovenox Code status:? Full Code Quality Stroke Does the patient have a stroke diagnosis?: No VTE Prior VTE?: No VTE Risk Level:: Medical - moderate - high VTE Device Contraindication: Treatment Not Indicated VTE Drug Contraindication: N/A - Med Ordered
[2021-06-09 11:06] LABS: Glucose, Whole Blood 257 mg/dL (60-115)
[2021-06-09 15:49] LABS: Glucose, Whole Blood 204 mg/dL (60-115)
[2021-06-09 20:14] LABS: Glucose, Whole Blood 340 mg/dL (60-115)
[2021-06-09 20:47] LABS: ABG Base Excess 2.1 mmol/L; ABG HCO3 24 mmol/L (22-26); ABG pCO2 32 mmHg (32-45); ABG pH 7.48 (7.35-7.45); ABG pO2 57 mmHg (83-108)
[2021-06-09] MEDS: Enoxaparin Sodium 40 MG/0.4 ML SYRINGE SUBCUT (22:20)
[2021-06-09] MEDS: Insulin Glargine,Hum.rec.anlog 100 UNIT/ML 10 ML VIAL 20 UNIT SUBCUT (22:21)
[2021-06-09 22:37] LABS: ABG Refer to POC result
[2021-06-10] VITALS (11 sets, daily range): BP systolic 123–167; BP diastolic 63–75; PULSE 60–92; RESP 16–20; TEMP 36.1–36.7; O2SAT 91–99
[2021-06-10] MEDS: methylPREDNISolone Sod Succ 125 MG/2 ML VIAL 60 MG IVPUSH ×3 (00:49→16:15)
[2021-06-10] MEDS: 0.9 % Sodium Chloride Flush 3 ML SYRINGE IVFLUSH ×4 (00:50→19:47)
[2021-06-10] MEDS: Morphine Sulfate 2 MG/ML CARTRIDGE 1 MG IVPUSH ×2 (00:50→21:54)
[2021-06-10 07:31] LABS: Glucose, Whole Blood 203 mg/dL (60-115)
[2021-06-10] MEDS: Insulin Lispro 100 UNIT/ML 3 ML VIAL SUBCUT ×4 (07:52→19:40)
[2021-06-10] MEDS: FLUoxetine HCl 20 MG CAPSULE PO (07:54)
[2021-06-10] MEDS: Metoprolol Succinate ER 25 MG TAB.ER.24H PO (07:54)
[2021-06-10] MEDS: Tamsulosin HCL 0.4 MG CAPSULE PO (07:54)
[2021-06-10] MEDS: Pravastatin Sodium 40 MG TABLET PO (07:54)
[2021-06-10] MEDS: Gabapentin 300 MG CAPSULE PO ×2 (07:54→19:39)
[2021-06-10] MEDS: Losartan Potassium 50 MG TABLET 100 MG PO (07:55)
[2021-06-10] MEDS: clonazePAM 1 MG TABLET PO ×2 (07:55→19:39)
--- NOTE | 2021-06-10 10:11 | P.PNIM_ITS ---
Subjective Subjective Date of Service: 06/10/21 Interval History: f/u covid hypoxia, remains on high flow, and desats drastically with little activity Review of Systems no fever no cough Neurologic Neurologic: Reports confusion Psychiatric Psychiatric: Reports confusion Physical Exam Verdana 4l Vital Signs: Verdana 4d Verdana 4d Vital Signs: Verdana 4d Verdana 4Bd Last Vital Signs Verdana 4d Strapper And Buffer New 4d Strapper And Buffer New 4d Temp 97.3 F 06/10/21 07:54 Strapper And Buffer New 4d Pulse 60 06/10/21 07:54 Strapper And Buffer New 4d Resp 20 06/10/21 07:54 BP 167/74 H 06/10/21 07:54 Pulse Ox 92 06/10/21 07:54 BMI result Body Mass Index 28.3 Const: Other: General: AO X 2, no acute distress Resp: normal resp effort CVS: S1,S2,RRR GI: +BS, NT, no distention Skin: No rash Neuro: motor grossly intact Psych: appropriate affect General: confusion Orientation/consciousness: confusion Neuro: General: confusion Objective Data Active Medications Acetaminophen (Acetaminophen 325 Mg Tablet) 650 mg PO Q6H PRN PRN Reason: Pain, Mild (Pain Scale 1-3) Last Admin: 06/08/21 18:09 Dose: 650 mg Documented by: JARRETT Clonazepam (Clonazepam 1 Mg Tablet) 1 mg PO BID [facility] Last Admin: 06/10/21 07:55 Dose: 1 mg Documented by: KINA Dextrose (Dextrose 50 % 25 Gm/50 Ml Syringe) 25 gm IVPUSH Q15M PRN; Protocol PRN Reason: per Hypoglycemia Standing Ord. Enoxaparin Sodium (Enoxaparin Sodium 40 Mg/0.4 Ml Syringe) 40 mg SUBCUT Q24H [facility] Last Admin: 06/09/21 22:20 Dose: 40 mg Documented by: JARRETT Fluoxetine HCl (Fluoxetine Hcl 20 Mg Capsule) 20 mg PO DAILY [facility] Last Admin: 06/10/21 07:54 Dose: 20 mg Documented by: KINA Gabapentin (Gabapentin 300 Mg Capsule) 300 mg PO TID [facility] Last Admin: 06/10/21 07:54 Dose: 300 mg Documented by: KINA Glucose (Glucose Gel 15 Gm Gel..Gram.) 15 gm PO Q15M PRN; Protocol PRN Reason: per Hypoglycemia Standing Ord. Insulin Glargine (Insulin Glargine,Hum.Rec.Anlog 100 Unit/Ml 10 Ml Vial) 20 unit SUBCUT BEDTIME [facility] Last Admin: 06/09/21 22:21 Dose: 20 unit Documented by: JARRETT Insulin Human Lispro (Insulin Lispro 100 Unit/Ml 3 Ml Vial) 0 unit SUBCUT QIDACHS [facility] OF [facility]; Protocol Last Admin: 06/10/21 07:52 Dose: 4 unit Documented by: KINA Losartan Potassium (Losartan Potassium 50 Mg Tablet) 100 mg PO DAILY [facility]; P rotocol Last Admin: 06/10/21 07:55 Dose: 100 mg Documented by: KINA Melatonin (Melatonin 3 Mg Tablet) 6 mg PO BEDTIME PRN PRN Reason: Insomnia Last Admin: 06/07/21 22:03 Dose: 6 mg Documented by: EMILY Methylprednisolone Sodium Succinate (Methylprednisolone Sod Succ 125 Mg/2 Ml Vial) 60 mg IVPUSH Q8H [facility] Last Admin: 06/10/21 07:52 Dose: 60 mg Documented by: KINA Metoprolol Succinate (Metoprolol Succinate Er 25 Mg Tab.Er.24h) 25 mg PO DAILY [facility]; Protocol Last Admin: 06/10/21 07:54 Dose: 25 mg Documented by: KINA Morphine Sulfate (Morphine Sulfate 2 Mg/Ml Cartridge) 1 mg IVPUSH Q4H PRN; Protocol PRN Reason: Pain, Severe (Pain Scale 7-10) Last Admin: 06/10/21 00:50 Dose: 1 mg Documented by: ANTOIC Pharmacy Consult (Consult Rx Perform Med Rec) 1 each MISCELLANE ONCE PRN PRN Reason: Consult order Pravastatin Sodium (Pravastatin Sodium 40 Mg Tablet) 40 mg PO DAILY [facility] Last Admin: 06/10/21 07:54 Dose: 40 mg Documented by: KINA Senna (Sennosides 8.6 Mg Tablet) 17.2 mg PO BEDTIME PRN PRN Reason: Constipation Last Admin: 06/08/21 18:08 Dose: 17.2 mg Documented by: JARRETT Sodium Chloride (0.9 % Sodium Chloride Flush 3 Ml Syringe) 3 ml IVFLUSH QSHIFT ON [facility] Last Admin: 06/10/21 07:52 Dose: 3 ml Documented by: KINA Tamsulosin HCl (Tamsulosin Hcl 0.4 Mg Capsule) 0.4 mg PO DAILY [facility] Last Admin: 06/10/21 07:54 Dose: 0.4 mg Documented by: KINA Tizanidine HCl (Tizanidine Hcl 4 Mg Tablet) 2 mg PO BID PRN PRN Reason: for muscle spasm Last Admin: 06/08/21 18:09 Dose: 2 mg Documented by: JARRETT Labs CBC & Chem 7: 06/07/21 06:12 06/07/21 06:12 Labs: Laboratory Results - last 24 hr 06/09/21 06/09/21 06/09/21 11:03 15:43 20:07 O2 Saturation ABG pH at Pt Temp ABG pCO2 at Pt Temp ABG pO2 at Pt Temp ABG HCO3 ABG Base Excess (Actual) POC Glucose 257 H 204 H 340 H 06/09/21 06/10/21 20:40 07:27 O2 Saturation 86.0 ABG pH at Pt Temp 7.48 H ABG pCO2 at Pt Temp 32 ABG pO2 at Pt Temp 57 L ABG HCO3 24 ABG Base Excess (Actual) 2.1 POC Glucose 203 H Assessment and Plan (1) Acute respiratory failure with hypoxia: Status: Acute Plan 80-year-old male with a past medical history of hypertension, hyperlipidemia, diabetes, BPH, osteoarthritis, generalized anxiety, depression, opiate dependence on Suboxone; presented to the hospital today with a chief complaint of shortness of breath.? ? Noted to have acute hypoxic respiratory failure in the setting of COVID-19 pneumonia.? Admitted for further management.? 1.Acute, severe hypoxic respiratory failure d/t covid -Remains on HF O2. Continue to try to wean -Dexametasone (02/13) completed 06/03/21...Solumedrol pulse dose 60 q 8hrs -Baricitinib () 2.Diabetes - Lantus/Lispro SS -acceptable control - adjust as indiacted 3.History of anxiety / depression and intermittent delirium - Continue home clonazepam, clonidine, fluoxetine, gabapentin. 4.History of opiate dependence -On Suboxone. ? addiction Medicine following 5. Agitation/confusion likely from hypoxia related delirium consider low dose Psychotropic to control behavior, consider low marcelle seroquel Overall seems a bit better today DVT prophylaxis:? Lovenox Code status:? Full Code Quality Stroke Does the patient have a stroke diagnosis?: No VTE Prior VTE?: No VTE Risk Level:: Medical - moderate - high VTE Device Contraindication: Treatment Not Indicated VTE Drug Contraindication: N/A - Med Ordered
[2021-06-10 11:00] LABS: Glucose, Whole Blood 240 mg/dL (60-115)
--- NOTE | 2021-06-10 11:42 | MHC.CM.PN ---
Per ROUNDS discussion, Patient is not yet medically cleared for dc (IV Solu Medrol, IV Morphine today, high flow O2); Home/resume [employer] services is the goal and CM will follow for possible need to adjust the dc plan.
--- NOTE | 2021-06-10 12:40 | PC.NURSE ---
till refusing to eat at this time. encouraged glucerna intake *drank 240 cc for lunch
--- NOTE | 2021-06-10 13:20 | PC.NURSE ---
No urine output since 7a. (despite trying to encouraged po intake. refusing breakfast and lunch). Dr. Quinn aware. suggested IVF.
[2021-06-10 16:09] LABS: Glucose, Whole Blood 246 mg/dL (60-115)
--- NOTE | 2021-06-10 17:09 | PC.NURSE ---
report given to Kiran CABALLERO
[2021-06-10] MEDS: Insulin Glargine,Hum.rec.anlog 100 UNIT/ML 10 ML VIAL 20 UNIT SUBCUT (19:40)
[2021-06-10 19:41] LABS: Glucose, Whole Blood 342 mg/dL (60-115)
[2021-06-10] MEDS: Enoxaparin Sodium 40 MG/0.4 ML SYRINGE SUBCUT (21:54)
[2021-06-11] VITALS (12 sets, daily range): BP systolic 112–153; BP diastolic 56–82; PULSE 54–83; RESP 16–21; TEMP 36.1–37.4; O2SAT 89–94
[2021-06-11] MEDS: methylPREDNISolone Sod Succ 125 MG/2 ML VIAL 60 MG IVPUSH ×4 (00:15→23:31)
[2021-06-11] MEDS: Melatonin 3 MG TABLET 6 MG PO (00:15)
[2021-06-11] MEDS: Morphine Sulfate 2 MG/ML CARTRIDGE 1 MG IVPUSH ×2 (04:40→23:31)
[2021-06-11 07:53] LABS: Glucose, Whole Blood 227 mg/dL (60-115)
[2021-06-11] MEDS: Insulin Lispro 100 UNIT/ML 3 ML VIAL SUBCUT ×4 (08:33→21:02)
[2021-06-11] MEDS: Losartan Potassium 50 MG TABLET 100 MG PO (08:34)
[2021-06-11] MEDS: Gabapentin 300 MG CAPSULE PO ×3 (08:34→21:03)
[2021-06-11] MEDS: Pravastatin Sodium 40 MG TABLET PO (08:35)
[2021-06-11] MEDS: FLUoxetine HCl 20 MG CAPSULE PO (08:35)
[2021-06-11] MEDS: Tamsulosin HCL 0.4 MG CAPSULE PO (08:36)
[2021-06-11] MEDS: clonazePAM 1 MG TABLET PO (08:36)
[2021-06-11] MEDS: Metoprolol Succinate ER 25 MG TAB.ER.24H PO (08:36)
[2021-06-11] MEDS: 0.9 % Sodium Chloride Flush 3 ML SYRINGE IVFLUSH ×3 (08:37→21:09)
--- NOTE | 2021-06-11 09:57 | P.PNIM_ITS ---
Subjective Subjective Date of Service: 06/11/21 Interval History: f/u covid hypoxia, remains on high, more clam this morning, brething easier, O2 sat stil marginal Review of Systems no fever no cough Physical Exam Verdana 4l Vital Signs: Verdana 4d Verdana 4d Vital Signs: Verdana 4d Verdana 4Bd Last Vital Signs Verdana 4d Director Business Intelligence New 4d Director Business Intelligence New 4d Temp 99.3 F 06/11/21 07:21 Director Business Intelligence New 4d Pulse 60 06/11/21 07:21 Director Business Intelligence New 4d Resp 16 06/11/21 07:58 BP 153/82 H 06/11/21 07:21 Pulse Ox 92 06/11/21 07:21 BMI result Body Mass Index 28.3 Const: Other: General: AO X 2, no acute distress Resp: normal resp effort CVS: S1,S2,RRR GI: +BS, NT, no distention Skin: No rash Neuro: motor grossly intact Psych: appropriate affect Objective Data Active Medications Acetaminophen (Acetaminophen 325 Mg Tablet) 650 mg PO Q6H PRN PRN Reason: Pain, Mild (Pain Scale 1-3) Last Admin: 06/08/21 18:09 Dose: 650 mg Documented by: JARRETT Clonazepam (Clonazepam 1 Mg Tablet) 1 mg PO BID [facility] Last Admin: 06/11/21 08:36 Dose: 1 mg Documented by: JIMMY Dextrose (Dextrose 50 % 25 Gm/50 Ml Syringe) 25 gm IVPUSH Q15M PRN; Protocol PRN Reason: per Hypoglycemia Standing Ord. Enoxaparin Sodium (Enoxaparin Sodium 40 Mg/0.4 Ml Syringe) 40 mg SUBCUT Q24H [facility] Last Admin: 06/10/21 21:54 Dose: 40 mg Documented by: JHONATAN Fluoxetine HCl (Fluoxetine Hcl 20 Mg Capsule) 20 mg PO DAILY [facility] Last Admin: 06/11/21 08:35 Dose: 20 mg Documented by: JIMMY Gabapentin (Gabapentin 300 Mg Capsule) 300 mg PO TID [facility] Last Admin: 06/11/21 08:34 Dose: 300 mg Documented by: JIMMY Glucose (Glucose Gel 15 Gm Gel..Gram.) 15 gm PO Q15M PRN; Protocol PRN Reason: per Hypoglycemia Standing Ord. Insulin Glargine (Insulin Glargine,Hum.Rec.Anlog 100 Unit/Ml 10 Ml Vial) 20 unit SUBCUT BEDTIME [facility] Last Admin: 06/10/21 19:40 Dose: 20 unit Documented by: JHONATAN Insulin Human Lispro (Insulin Lispro 100 Unit/Ml 3 Ml Vial) 0 unit SUBCUT QIDACHS [facility]; Protocol Last Admin: 06/11/21 08:33 Dose: 4 unit Documented by: JIMMY Losartan Potassium (Losartan Potassium 50 Mg Tablet) 100 mg PO DAILY [facility]; Protocol Last Admin: 06/11/21 08:34 Dose: 100 mg Documented by: JIMMY Melatonin (Melatonin 3 Mg Tablet) 6 mg PO BEDTIME PRN PRN Reason: Insomnia Last Admin: 06/11/21 00:15 Dose: 6 mg Documented by: JHONATAN Methylprednisolone Sodium Succinate (Methylprednisolone Sod Succ 125 Mg/2 Ml Vial) 60 mg IVPUSH Q8H [facility] Last Admin: 06/11/21 08:32 Dose: 60 mg Documented by: JIMMY Metoprolol Succinate (Metoprolol Succinate Er 25 Mg Tab.Er.24h) 25 mg PO DAILY [facility]; Protocol Last Admin: 06/11/21 08:36 Dose: 25 mg Documented by: JIMMY Morphine Sulfate (Morphine Sulfate 2 Mg/Ml Cartridge) 1 mg IVPUSH Q4H PRN; Protocol PRN Reason: Pain, Severe (Pain Scale 7-10) Last Admin: 06/11/21 04:40 Dose: 1 mg Documented by: JHONATAN Pharmacy Consult (Consult Rx Perform Med Rec) 1 each MISCELLANE ONCE PRN PRN Reason: Consult order Pravastatin Sodium (Pravastatin Sodium 40 Mg Tablet) 40 mg PO DAILY [facility] Last Admin: 06/11/21 08:35 Dose: 40 mg Documented by: JIMMY Senna (Sennosides 8.6 Mg Tablet) 17.2 mg PO BEDTIME PRN PRN Reason: Constipation Last Admin: 06/08/21 18:08 Dose: 17.2 mg Documented by: JARRETT Sodium Chloride (0.9 % Sodium Chloride Flush 3 Ml Syringe) 3 ml IVFLUSH QSHIFT [facility] Last Admin: 06/11/21 08:37 Dose: 3 ml Documented by: JIMMY Tamsulosin HCl (Tamsulosin Hcl 0.4 Mg Capsule) 0.4 mg PO DAILY [facility] Last Admin: 06/11/21 08:36 Dose: 0.4 mg Documented by: JIMMY Tizanidine HCl (Tizanidine Hcl 4 Mg Tablet) 2 mg PO BID PRN PRN Reason: for muscle spasm Last Admin: 06/08/21 18:09 Dose: 2 mg Documented by: JARRETT Labs CBC & Chem 7: 06/07/21 06:12 06/07/21 06:12 Labs: Laboratory Results - last 24 hr 06/10/21 06/10/21 06/10/21 10:57 16:01 19:33 POC Glucose 240 H 246 H 342 H 06/11/21 07:21 POC Glucose 227 H Assessment and Plan (1) Acute respiratory failure with hypoxia: Status: Acute Plan 80-year-old male with a past medical history of hypertension, hyperlipidemia, diabetes, BPH, osteoarthritis, generalized anxiety, depression, opiate dependence on Suboxone; presented to the hospital today with a chief complaint of shortness of breath.? ? Noted to have acute hypoxic respiratory failure in the setting of COVID-19 pneumonia.? Admitted for further management.? 1.Acute, severe hypoxic respiratory failure d/t covid -Remains on HF O2. Continue to try to wean -Dexametasone (02/13) completed 06/03/21...Solumedrol pulse dose 60 q 8hrs -completed Baricitinib () 2.Diabetes - Lantus/Lispro SS -acceptable control - adjust as indiacted 3.History of anxiety / depression and intermittent delirium - Continue home clonazepam, clonidine, fluoxetine, gabapentin. 4.History of opiate dependence -On Suboxone. ? addiction Medicine following 5. Agitation/confusion likely from hypoxia related delirium consider low dose Psychotropic to control behavior, consider low marcelle seroquel--> Of late seems better Overall seems a bit better today DVT prophylaxis:? Lovenox Code status:? Full Code Quality Stroke Does the patient have a stroke diagnosis?: No VTE Prior VTE?: No VTE Risk Level:: Medical - moderate - high VTE Device Contraindication: Treatment Not Indicated VTE Drug Contraindication: N/A - Med Ordered
[2021-06-11 11:19] LABS: Glucose, Whole Blood 225 mg/dL (60-115)
[2021-06-11 15:04] LABS: Hematocrit 37.3 % (42.0-52.0); Hemoglobin 12.5 g/dl (14.0-18.0); Mean Corpuscular HGB Conc 33.5 g/dl (31.0-36.0); Mean Corpuscular Hemoglobin 29.8 pg (27.0-33.0); Mean Platelet Volume 10.6 fL (9.4-12.4); Red Blood Count 4.19 X10*6/uL (4.60-5.80); Red Cell Distribution Width 13.2 % (11.0-16.0); White Blood Count 8.7 X10*3/uL (4.8-10.8)
[2021-06-11 15:23] LABS: Platelet Count 65 X10*3/uL (160-400)
[2021-06-11 15:28] LABS: Alanine Aminotransferase 30 U/L (0-40); Albumin Level 2.7 g/dL (3.5-5.0); Alkaline Phosphatase 70 U/L (39-117); Aspartate Amino Transferase 20 U/L (5-37); Bilirubin Direct 0.5 mg/dL (0.0-0.5); Bilirubin Total 1.2 mg/dL (0.0-1.0); Blood Urea Nitrogen 35 mg/dL (9-16); C Reactive Protein 2.53 mg/dL (< or = 0.50); Calcium 8.4 mg/dL (8.4-10.2); Creatinine Clr Calc Pharmacy 93.3; Estimated Glomerular Filt Rate > 60; Glucose Random 210 mg/dL (60-115); Total Protein 5.8 g/dL (6.5-8.0)
[2021-06-11 15:37] LABS: Anion Gap 11 (12-20); Carbon Dioxide 27 mmol/L (22-29); Chloride 100 mmol/L (96-108); Potassium 4.4 mmol/L (3.3-5.1); Sodium 134 mmol/L (135-145)
[2021-06-11 16:07] LABS: Glucose, Whole Blood 196 mg/dL (60-115)
[2021-06-11 19:41] LABS: Glucose, Whole Blood 379 mg/dL (60-115)
[2021-06-11] MEDS: Insulin Glargine,Hum.rec.anlog 100 UNIT/ML 10 ML VIAL 20 UNIT SUBCUT (21:02)
[2021-06-11] MEDS: cloNIDine HCL 0.1 MG TABLET PO (21:03)
[2021-06-11] MEDS: Enoxaparin Sodium 40 MG/0.4 ML SYRINGE SUBCUT (21:03)
[2021-06-12] VITALS (12 sets, daily range): BP systolic 107–137; BP diastolic 60–72; PULSE 61–78; RESP 18–21; TEMP 36.1–37.4; O2SAT 89–95
[2021-06-12] MEDS: Morphine Sulfate 2 MG/ML CARTRIDGE 1 MG IVPUSH ×3 (03:31→18:17)
[2021-06-12 08:12] LABS: Glucose, Whole Blood 299 mg/dL (60-115)
[2021-06-12] MEDS: cloNIDine HCL 0.1 MG TABLET PO ×2 (08:25→21:14)
[2021-06-12] MEDS: Losartan Potassium 50 MG TABLET 100 MG PO (08:25)
[2021-06-12] MEDS: Cholecalciferol (Vitamin D3) 25 MCG TABLET PO (08:25)
[2021-06-12] MEDS: Metoprolol Succinate ER 25 MG TAB.ER.24H PO (08:26)
[2021-06-12] MEDS: predniSONE 10 MG TABLET PO (08:26)
[2021-06-12] MEDS: FLUoxetine HCl 20 MG CAPSULE PO (08:26)
[2021-06-12] MEDS: hydroCHLOROthiazide 25 MG TABLET PO (08:30)
[2021-06-12] MEDS: Pravastatin Sodium 40 MG TABLET PO (08:30)
[2021-06-12] MEDS: Tamsulosin HCL 0.4 MG CAPSULE PO (08:30)
[2021-06-12] MEDS: Gabapentin 300 MG CAPSULE PO ×3 (08:30→21:14)
[2021-06-12] MEDS: Multivitamin TABLET 1 TAB PO (08:30)
[2021-06-12] MEDS: Insulin Lispro 100 UNIT/ML 3 ML VIAL SUBCUT ×4 (08:36→21:15)
[2021-06-12] MEDS: 0.9 % Sodium Chloride Flush 3 ML SYRINGE IVFLUSH ×3 (08:38→21:14)
[2021-06-12] MEDS: methylPREDNISolone Sod Succ 125 MG/2 ML VIAL 60 MG IVPUSH ×2 (08:38→17:45)
[2021-06-12 11:30] LABS: Glucose, Whole Blood 341 mg/dL (60-115)
[2021-06-12] MEDS: Silver Sulfadiazine 1 % Cream 20 GM TUBE 1 APPL TOPICAL ×3 (12:15→21:15)
[2021-06-12 16:29] LABS: Glucose, Whole Blood 309 mg/dL (60-115)
[2021-06-12 20:35] LABS: Glucose, Whole Blood 320 mg/dL (60-115)
[2021-06-12] MEDS: Enoxaparin Sodium 40 MG/0.4 ML SYRINGE SUBCUT (21:14)
[2021-06-12] MEDS: Insulin Glargine,Hum.rec.anlog 100 UNIT/ML 10 ML VIAL 20 UNIT SUBCUT (21:15)
[2021-06-13] VITALS (13 sets, daily range): BP systolic 92–139; BP diastolic 50–68; PULSE 57–75; RESP 18–24; TEMP 36.3–37; O2SAT 88–93
[2021-06-13] MEDS: methylPREDNISolone Sod Succ 125 MG/2 ML VIAL 60 MG IVPUSH ×3 (00:59→17:01)
[2021-06-13 07:44] LABS: Glucose, Whole Blood 222 mg/dL (60-115)
[2021-06-13] MEDS: hydroCHLOROthiazide 25 MG TABLET PO (09:00)
[2021-06-13] MEDS: Insulin Lispro 100 UNIT/ML 3 ML VIAL SUBCUT ×4 (09:00→22:12)
[2021-06-13] MEDS: Tamsulosin HCL 0.4 MG CAPSULE PO (09:00)
[2021-06-13] MEDS: cloNIDine HCL 0.1 MG TABLET PO ×2 (09:00→22:13)
[2021-06-13] MEDS: predniSONE 10 MG TABLET PO (09:00)
[2021-06-13] MEDS: Cholecalciferol (Vitamin D3) 25 MCG TABLET PO (09:00)
[2021-06-13] MEDS: Multivitamin TABLET 1 TAB PO (09:00)
[2021-06-13] MEDS: Gabapentin 300 MG CAPSULE PO ×3 (09:00→22:12)
[2021-06-13] MEDS: Losartan Potassium 50 MG TABLET 100 MG PO (09:01)
[2021-06-13] MEDS: 0.9 % Sodium Chloride Flush 3 ML SYRINGE IVFLUSH ×3 (09:01→22:14)
[2021-06-13] MEDS: FLUoxetine HCl 20 MG CAPSULE PO (09:06)
[2021-06-13] MEDS: Metoprolol Succinate ER 25 MG TAB.ER.24H PO (09:06)
[2021-06-13] MEDS: Pravastatin Sodium 40 MG TABLET PO (09:06)
[2021-06-13] MEDS: Silver Sulfadiazine 1 % Cream 20 GM TUBE 1 APPL TOPICAL ×3 (09:07→22:21)
--- NOTE | 2021-06-13 10:46 | P.PNIM_ITS ---
Subjective Subjective Date of Service: 06/13/21 Interval History: f/u covid hypoxia, remains on high, more clam this morning, brething easier, O2 sat stil marginal Review of Systems no fever no cough Physical Exam Verdana 4l Vital Signs: Verdana 4d Verdana 4d Vital Signs: Verdana 4d Verdana 4Bd Last Vital Signs Verdana 4d Fermentologist New 4d Fermentologist New 4d Temp 97.3 F 06/13/21 07:41 Fermentologist New 4d Pulse 64 06/13/21 07:41 Fermentologist New 4d Resp 22 H 06/13/21 10:44 BP 126/68 06/13/21 07:41 Pulse Ox 93 06/13/21 07:41 BMI result Body Mass Index 28.3 Const: Other: General: AO X 2, no acute distress Resp: normal resp effort CVS: S1,S2,RRR GI: +BS, NT, no distention Skin: No rash Neuro: motor grossly intact Psych: appropriate affect Objective Data Active Medications Acetaminophen (Acetaminophen 325 Mg Tablet) 650 mg PO Q6H PRN PRN Reason: Pain, Mild (Pain Scale 1-3) Last Admin: 06/08/21 18:09 Dose: 650 mg Documented by: JARRETT Hydrocodone Bitart/Acetaminophen (Hydrocodone Bit/Acetam 10/325 Tablet) 1 tab PO QID PRN PRN Reason: Pain (Scale Score 7-10) Clonidine HCl (Clonidine Hcl 0.1 Mg Tablet) 0.1 mg PO BID [facility]; Protocol Last Admin: 06/13/21 09:00 Dose: 0.1 mg Documented by: YAZMIN Dextrose (Dextrose 50 % 25 Gm/50 Ml Syringe) 25 gm IVPUSH Q15M PRN; Protocol PRN Reason: per Hypoglycemia Standing Ord. Enoxaparin Sodium (Enoxaparin Sodium 40 Mg/0.4 Ml Syringe) 40 mg SUBCUT Q24H [facility] Last Admin: 06/12/21 21:14 Dose: 40 mg Documented by: GRUPO Fluoxetine HCl (Fluoxetine Hcl 20 Mg Capsule) 20 mg PO DAILY [facility] Last Admin: 06/13/21 09:06 Dose: 20 mg Documented by: YAZMIN Gabapentin (Gabapentin 300 Mg Capsule) 300 mg PO TID [facility] Last Admin: 06/13/21 09:00 Dose: 300 mg Documented by: YAZMIN Glucose (Glucose Gel 15 Gm Gel..Gram.) 15 gm PO Q15M PRN; Protocol PRN Reason: per Hypoglycemia Standing Ord. Hydrochlorothiazide (Hydrochlorothiazide 25 Mg Tablet) 25 mg PO DAILY [facility]; Protocol Last Admin: 06/13/21 09:00 Dose: 25 mg Documented by: YAZMIN Insulin Glargine (Insulin Glargine,Hum.Rec.Anlog 100 Unit/Ml 10 Ml Vial) 20 unit SUBCUT BEDTIME [facility] Last Admin: 06/12/21 21:15 Dose: 20 unit Documented by: GRUPO Insulin Human Lispro (Insulin Lispro 100 Unit/Ml 3 Ml Vial) 0 unit SUBCUT QIDACHS [facility]; Protocol Last Admin: 06/13/21 09:00 Dose: 4 unit Documented by: YAZMIN Losartan Potassium (Losartan Potassium 50 Mg Tablet) 100 mg PO DAILY [facility]; Protocol Last Admin: 06/13/21 09:01 Dose: 100 mg Documented by: YAZMIN Melatonin (Melatonin 3 Mg Tablet) 6 mg PO BEDTIME PRN PRN Reason: Insomnia Last Admin: 06/11/21 00:15 Dose: 6 mg Documented by: JHONATAN Methylprednisolone Sodium Succinate (Methylprednisolone Sod Succ 125 Mg/2 Ml Vial) 60 mg IVPUSH Q8H [facility] Last Admin: 06/13/21 09:01 Dose: 60 mg Documented by: YAZMIN Metoprolol Succinate (Metoprolol Succinate Er 25 Mg Tab.Er.24h) 25 mg PO DAILY [facility]; Protocol Last Admin: 06/13/21 09:06 Dose: 25 mg Documented by: YAZMIN Morphine Sulfate (Morphine Sulfate 2 Mg/Ml Cartridge) 1 mg IVPUSH Q4H PRN; Protocol PRN Reason: Pain, Severe (Pain Scale 7-10) Last Admin: 06/12/21 18:17 Dose: 1 mg Documented by: JIMMY Multivitamins/Vitamin C (Multivitamin Tablet) 1 tab PO DAILY [facility] Last Admin: 06/13/21 09:00 Dose: 1 tab Documented by: YAZMIN Pharmacy Consult (Consult Rx Perform Med Rec) 1 each MISCELLANE ONCE PRN PRN Reason: Consult order Pravastatin Sodium (Pravastatin Sodium 40 Mg Tablet) 40 mg PO DAILY [facility] Last Admin: 06/13/21 09:06 Dose: 40 mg Documented by: YAZMIN Prednisone (Prednisone 10 Mg Tablet) 10 mg PO DAILY [facility] Last Admin: 06/13/21 09:00 Dose: 10 mg Documented by: YAZMIN Senna (Sennosides 8.6 Mg Tablet) 17.2 mg PO BEDTIME PRN PRN Reason: Constipation Last Admin: 06/08/21 18:08 Dose: 17.2 mg Documented by: JARRETT Silver Sulfadiazine (Silver Sulfadiazine 1 % Cream 20 Gm Tube) 1 appl TOPICAL TID [facility] Last Admin: 06/13/21 09:07 Dose: 1 appl Documented by: YAZMIN Sodium Chloride (0.9 % Sodium Chloride Flush 3 Ml Syringe) 3 ml IVFLUSH QSHIFT [facility] Last Admin: 06/13/21 09:01 Dose: 3 ml Documented by: YAZMIN Tamsulosin HCl (Tamsulosin Hcl 0.4 Mg Capsule) 0.4 mg PO DAILY [facility] Last Admin: 06/13/21 09:00 Dose: 0.4 mg Documented by: YAZMIN Tizanidine HCl (Tizanidine Hcl 4 Mg Tablet) 2 mg PO BID PRN PRN Reason: for muscle spasm Last Admin: 06/08/21 18:09 Dose: 2 mg Documented by: JARRETT Vitamin D (Cholecalciferol (Vitamin D3) 25 Mcg Tablet) 25 mcg PO DAILY [facility] Last Admin: 06/13/21 09:00 Dose: 25 mcg Documented by: YAZMIN Labs CBC & Chem 7: 06/11/21 14:43 06/11/21 14:43 Labs: Laboratory Results - last 24 hr 06/12/21 06/12/21 06/12/21 10:51 15:42 20:15 POC Glucose 341 H 309 H 320 H 06/13/21 07:28 POC Glucose 222 H Assessment and Plan (1) Acute respiratory failure with hypoxia: Status: Acute Plan 80-year-old male with a past medical history of hypertension, hyperlipidemia, diabetes, BPH, osteoarthritis, generalized anxiety, depression, opiate dependence on Suboxone; presented to the hospital today with a chief complaint of shortness of breath.? ? Noted to have acute hypoxic respiratory failure in the setting of COVID-19 pneumonia.? Admitted for further management.? 1.Acute, severe hypoxic respiratory failure d/t covid--making no signficant progress -Remains on HF O2. Continue to try to wean as much as possible -Dexametasone (02/13) completed 06/03/21...Solumedrol pulse dose 60 q 8hrs -completed Baricitinib () 2.Diabetes - Lantus/Lispro SS -acceptable control - adjust as indiacted 3.History of anxiety / depression and intermittent delirium - Continue home clonazepam, clonidine, fluoxetine, gabapentin. -Psych consult for med management 4.History of opiate dependence -On Suboxone patch at home (not on formulary)--He is on morphine here, pain is controlled. 5. Agitation/confusion likely from hypoxia related delirium consider low dose Psychotropic to control behavior, consider low marcelel seroquel if needed --> Of late seems better Overall seems a bit better today DVT prophylaxis:? Lovenox Code status:? Full Code Ongoing family update Quality Stroke Does the patient have a stroke diagnosis?: No VTE Prior VTE?: No VTE Risk Level:: Medical - moderate - high VTE Device Contraindication: Treatment Not Indicated VTE Drug Contraindication: N/A - Med Ordered
[2021-06-13 11:10] LABS: Glucose, Whole Blood 281 mg/dL (60-115)
--- NOTE | 2021-06-13 12:43 | MHC.CM.PN ---
Per ROUNDS discussion, Patient is not yet medically cleared for dc (Hypoxic and desatting); Home/resume [employer] and [facility] is the goal and CM will follow for possible need to adjust the dc plan.
[2021-06-13] MEDS: Morphine Sulfate 2 MG/ML CARTRIDGE 1 MG IVPUSH ×2 (13:21→18:18)
[2021-06-13 16:42] LABS: Glucose, Whole Blood 325 mg/dL (60-115)
[2021-06-13 21:02] LABS: Glucose, Whole Blood 405 mg/dL (60-115)
[2021-06-13] MEDS: Insulin Glargine,Hum.rec.anlog 100 UNIT/ML 10 ML VIAL 20 UNIT SUBCUT (22:12)
[2021-06-13] MEDS: Melatonin 3 MG TABLET 6 MG PO (22:12)
[2021-06-13] MEDS: Enoxaparin Sodium 40 MG/0.4 ML SYRINGE SUBCUT (22:13)
[2021-06-14] VITALS (17 sets, daily range): BP systolic 90–133; BP diastolic 47–64; PULSE 53–78; RESP 14–20; TEMP 35.4–36.8; O2SAT 78–95
[2021-06-14] MEDS: methylPREDNISolone Sod Succ 125 MG/2 ML VIAL 60 MG IVPUSH ×3 (00:54→16:03)
[2021-06-14 07:31] LABS: Glucose, Whole Blood 275 mg/dL (60-115)
[2021-06-14] MEDS: Insulin Lispro 100 UNIT/ML 3 ML VIAL SUBCUT ×4 (08:01→21:22)
[2021-06-14] MEDS: cloNIDine HCL 0.1 MG TABLET PO ×2 (08:02→21:21)
[2021-06-14] MEDS: predniSONE 10 MG TABLET PO (08:02)
[2021-06-14] MEDS: FLUoxetine HCl 20 MG CAPSULE PO (08:02)
[2021-06-14] MEDS: Metoprolol Succinate ER 25 MG TAB.ER.24H PO (08:02)
[2021-06-14] MEDS: Multivitamin TABLET 1 TAB PO (08:02)
[2021-06-14] MEDS: hydroCHLOROthiazide 25 MG TABLET PO (08:02)
[2021-06-14] MEDS: Cholecalciferol (Vitamin D3) 25 MCG TABLET PO (08:02)
[2021-06-14] MEDS: Tamsulosin HCL 0.4 MG CAPSULE PO (08:02)
[2021-06-14] MEDS: Gabapentin 300 MG CAPSULE PO ×3 (08:03→21:21)
[2021-06-14] MEDS: Losartan Potassium 50 MG TABLET 100 MG PO (08:03)
[2021-06-14] MEDS: 0.9 % Sodium Chloride Flush 3 ML SYRINGE IVFLUSH ×2 (08:03→16:03)
[2021-06-14] MEDS: Pravastatin Sodium 40 MG TABLET PO (08:03)
[2021-06-14] MEDS: Silver Sulfadiazine 1 % Cream 20 GM TUBE 1 APPL TOPICAL ×3 (08:04→21:22)
[2021-06-14 09:00] LABS: ABG Base Excess 5.5 mmol/L; ABG HCO3 28 mmol/L (22-26); ABG pCO2 35 mmHg (32-45); ABG pH 7.51 (7.35-7.45); ABG pO2 45 mmHg (83-108)
[2021-06-14 09:18] LABS: VBG Base Excess 7.7 mmol/L; VBG HCO3 33 mmol/L (22-26); VBG O2 % Saturation < 30.0 %; VBG pCO2 52 mmHg; VBG pH 7.41 (7.32-7.43); VBG pO2 24 mmHg
[2021-06-14 09:18] LABS: Venous Blood Gas Refer to POC result
--- NOTE | 2021-06-14 11:12 | P.PNPL_ITS ---
Subjective Subjective Date of Service: 06/14/21 Principal diagnosis: COVID 19 ARDS Interval history: 81-year-old gentleman with underlying history of hypertension, diabetes mellitus, anxiety, opioid dependence on Suboxone, COVID-19 positive for approximately 14 days admitted on 05/24/2021 with gradually worsening dyspnea and hypoxemia secondary to COVID-19 requiring high-flow nasal cannula to maintain normoxemia on admission. Patient has been treated with systemic glucocorticoids and baricitinib. however, his FiO2 requirements continue to deteriorated now his on maximum support from high-flow nasal cannulae. Discussions family was held by Dr. Jolley and decision has been reached to change code status to DNR/DNI, as patient not have wanted to be intubated, which was confirmed by myself in his separate conversation with patient's daughter. Patient's family is common down from [place]. Objective Data Labs CBC & Chem 7: 06/11/21 14:43 06/11/21 14:43 Labs: Laboratory Results - last 24 hr 06/13/21 06/13/21 06/14/21 16:29 20:45 07:22 O2 Saturation ABG pH at Pt Temp ABG pCO2 at Pt Temp ABG pO2 at Pt Temp ABG HCO3 ABG Base Excess (Actual) VBG pH VBG pCO2 VBG pO2 VBG HCO3 VBG O2 Saturation VBG Base Excess POC Glucose 325 H 405 H* 275 H 06/14/21 06/14/21 08:54 09:12 O2 Saturation 76.0 ABG pH at Pt Temp 7.51 H ABG pCO2 at Pt Temp 35 ABG pO2 at Pt Temp 45 L* ABG HCO3 28 H ABG Base Excess (Actual) 5.5 VBG pH 7.41 VBG pCO2 52 VBG pO2 24 VBG HCO3 33 H VBG O2 Saturation < 30.0 VBG Base Excess 7.7 POC Glucose Microbiology Microbiology Results: Microbiology 05/24/21 16:59 Blood - Venous Blood Culture - Final No growth after 5 days. 05/24/21 16:42 Blood - Venous Blood Culture - Final No growth after 5 days. Review of Systems Cardiovascular: Denies chest pain, Reports dyspnea and Reports dyspnea on exertion Respiratory: Reports dyspnea and Reports dyspnea on exertion Physical Exam Vital Signs: Vital Signs: Last Vital Signs Temp 97 F 06/14/21 07:22 Pulse 63 06/14/21 07:22 Resp 18 06/14/21 08:21 BP 128/61 06/14/21 07:22 Pulse Ox 88 L 06/14/21 07:22 BMI result Body Mass Index 28.3 Const: General: no acute distress, alert and awake Eyes: Sclerae: sclerae normal EOM: EOMs intact bilaterally Neck: Neck: Yes no lymphadenopathy, Yes trachea midline and Yes supple Resp: Effort & Inspection: normal respiratory effort and no respiratory distress Auscultation: clear to auscultation bilaterally Cardio: Rate: regular rate Rhythm: regular rhythm Heart sounds: no gall ops, no murmurs and no rubs GI: Palpation (GI): Soft to palpation and Other GI palpation findings present ( Nontender) Auscultation: normal bowel sounds Extrem: General: No clubbing, No cyanosis and Yes pedal edema ( 1+ bilateral) Procedures Date of Service Date of Service: 06/14/21 Assessment and Plan Assessment and plan (1) Acute respiratory distress syndrome (ARDS) due to COVID-19 virus: Status: Acute (2) Acute respiratory failure with hypoxia: Status: Acute Plan Impression: 81-year-old gentleman with COVID-19 ARDS, now on maximum support from high-flow nasal cannula. Family decided to not proceed with intubation as it would being consistent with patient's wishes. He has completed a course of dexamethasone and baricitinib. Overall prognosis appears to be terminal. Patient's family is coming from [place], and may consider comfort measures status at that time. Recommendations: Continue with high-flow nasal cannula support and systemic glucocorticoids. Time Spent With Patient Time: Total time spent is greater than 50% in coordination of care (as documented) at patient's floor/unit and/or counseling patient: Time with patient: 25 - 35 minutes Progress Note: Quality Stroke Does the patient have a stroke diagnosis?: No
[2021-06-14 11:23] LABS: Glucose, Whole Blood 321 mg/dL (60-115)
--- NOTE | 2021-06-14 15:30 | PC.NURSE ---
0800- Patient O2 78-80% on nonrebreather and High flow 55L 100%. Patient alert and oriented, denies trouble breathing. Lung sounds diminished. Respiratory in to assess patient. O2 probe switched to different fingers and ear. O2 reading on ear was 95% for small period of time before returning to 70-80s. Dr. Jolley made aware. CXR and ABGs ordered. Patient repositioned to L side. O2 improved to 82-85%. Then shortly after O2 maintained at 90-95% on nonrebreather and high flow, while patient resting comfortably. Patient desat to 70s% when nonrebreather removed, recovered once placed back on. Patient has no complaints at this time.
[2021-06-14 15:52] LABS: Glucose, Whole Blood 318 mg/dL (60-115)
--- NOTE | 2021-06-14 16:26 | P.PNIM_ITS ---
Subjective Subjective Date of Service: 06/14/21 Interval History: acute Hypoxemic respiratory failure/covid Review of Systems shortness of breath similar to yesterday, sats seems flactuating in 85-90%no cough or fever seems awake. Physical Exam Vital Signs: Vital Signs: Last Vital Signs Temp 98.2 F 06/14/21 15:15 Pulse 61 06/14/21 15:15 Resp 20 06/14/21 15:37 BP 97/48 L 06/14/21 15:15 Pulse Ox 94 06/14/21 15:15 BMI result Body Mass Index 28.3 General: AO X 2, no acute distress Resp:? normal resp effort CVS: S1,S2,RRR GI: +BS, NT, no distention Skin: No rash Neuro:? motor grossly intact Psych: appropriate affect. Objective Data Active Medications Acetaminophen (Acetaminophen 325 Mg Tablet) 650 mg PO Q6H PRN PRN Reason: Pain, Mild (Pain Scale 1-3) Last Admin: 06/08/21 18:09 Dose: 650 mg Documented by: JARRETT Hydrocodone Bitart/Acetaminophen (Hydrocodone Bit/Acetam 10/325 Tablet) 1 tab PO QID PRN PRN Reason: Pain (Scale Score 7-10) Last Admin: 06/13/21 22:13 Dose: 1 tab Documented by: EMILY Clonidine HCl (Clonidine Hcl 0.1 Mg Tablet) 0.1 mg PO BID [facility]; Protocol Last Admin: 06/14/21 08:02 Dose: 0.1 mg Documented by: MARTINE Dextrose (Dextrose 50 % 25 Gm/50 Ml Syringe) 25 gm IVPUSH Q15M PRN; Protocol PRN Reason: per Hypoglycemia Standing Ord. Enoxaparin Sodium (Enoxaparin Sodium 40 Mg/0.4 Ml Syringe) 40 mg SUBCUT Q24H [facility] Last Admin: 06/13/21 22:13 Dose: 40 mg Documented by: EMILY Fluoxetine HCl (Fluoxetine Hcl 20 Mg Capsule) 20 mg PO DAILY [facility] Last Admin: 06/14/21 08:02 Dose: 20 mg Documented by: MARTINE Gabapentin (Gabapentin 300 Mg Capsule) 300 mg PO TID [facility] Last Admin: 06/14/21 14:40 Dose: 300 mg Documented by: MARTINE Glucose (Glucose Gel 15 Gm Gel..Gram.) 15 gm PO Q15M PRN; Protocol PRN Reason: per Hypoglycemia Standing Ord. Hydrochlorothiazide (Hydrochlorothiazide 25 Mg Tablet) 25 mg PO DAILY [facility]; Protocol Last Admin: 06/14/21 08:02 Dose: 25 mg Documented by: MARTINE Insulin Glargine (Insulin Glargine,Hum.Rec.Anlog 100 Unit/Ml 10 Ml Vial) 20 unit SUBCUT BEDTIME [facility] Last Admin: 06/13/21 22:12 Dose: 20 unit Documented by: EMILY Insulin Human Lispro (Insulin Lispro 100 Unit/Ml 3 Ml Vial) 0 unit SUBCUT QIDACHS [facility]; Protocol Last Admin: 06/14/21 11:44 Dose: 8 unit Documented by: MARTINE Losartan Potassium (Losartan Potassium 50 Mg Tablet) 100 mg PO DAILY [facility]; Protocol Last Admin: 06/14/21 08:03 Dose: 100 mg Documented by: MARTINE Melatonin (Melatonin 3 Mg Tablet) 6 mg PO BEDTIME PRN PRN Reason: Insomnia Last Admin: 06/13/21 22:12 Dose: 6 mg Documented by: EMILY Methylprednisolone Sodium Succinate (Methylprednisolone Sod Succ 125 Mg/2 Ml Vial) 60 mg IVPUSH Q8H [facility] Last Admin: 06/14/21 16:03 Dose: 60 mg Documented by: JARRETT Metoprolol Succinate (Metoprolol Succinate Er 25 Mg Tab.Er.24h) 25 mg PO DAILY [facility]; Protocol Last Admin: 06/14/21 08:02 Dose: 25 mg Documented by: MARTINE Morphine Sulfate (Morphine Sulfate 2 Mg/Ml Cartridge) 1 mg IVPUSH Q4H PRN; Protocol PRN Reason: Pain, Severe (Pain Scale 7-10) Last Admin: 06/13/21 18:18 Dose: 1 mg Documented by: YAZMIN Multivitamins/Vitamin C (Multivitamin Tablet) 1 tab PO DAILY [facility] Last Admin: 06/14/21 08:02 Dose: 1 tab Documented by: MARTINE Pharmacy Consult (Consult Rx Perform Med Rec) 1 each MISCELLANE ONCE PRN PRN Reason: Consult order Pravastatin Sodium (Pravastatin Sodium 40 Mg Tablet) 40 mg PO DAILY [facility] Last Admin: 06/14/21 08:03 Dose: 40 mg Documented by: MARTINE Prednisone (Prednisone 10 Mg Tablet) 10 mg PO DAILY [facility] Last Admin: 06/14/21 08:02 Dose: 10 mg Documented by: MARTINE Senna (Sennosides 8.6 Mg Tablet) 17.2 mg PO BEDTIME PRN PRN Reason: Constipation Last Admin: 06/08/21 18:08 Dose: 17.2 mg Documented by: JARRETT Silver Sulfadiazine (Silver Sulfadiazine 1 % Cream 20 Gm Tube) 1 appl TOPICAL TID [facility] Last Admin: 06/14/21 14:40 Dose: 1 appl Documented by: MARTINE Comments: Med in patient room, covid + Sodium Chloride (0.9 % Sodium Chloride Flush 3 Ml Syringe) 3 ml IVFLUSH QSHIFT [facility] Last Admin: 06/14/21 16:03 Dose: 3 ml Documented by: JARRETT Tamsulosin HCl (Tamsulosin Hcl 0.4 Mg Capsule) 0.4 mg PO DAILY [facility] Last Admin: 06/14/21 08:02 Dose: 0.4 mg Documented by: MARTINE Tizanidine HCl (Tizanidine Hcl 4 Mg Tablet) 2 mg PO BID PRN PRN Reason: for muscle spasm Last Admin: 06/08/21 18:09 Dose: 2 mg Documented by: JARRETT Vitamin D (Cholecalciferol (Vitamin D3) 25 Mcg Tablet) 25 mcg PO DAILY [facility] Last Admin: 06/14/21 08:02 Dose: 25 mcg Documented by: MARTINE Labs CBC & Chem 7: 06/11/21 14:43 06/11/21 14:43 Labs: Laboratory Results - last 24 hr 06/13/21 06/13/21 06/14/21 16:29 20:45 07:22 O2 Saturation ABG pH at Pt Temp ABG pCO2 at Pt Temp ABG pO2 at Pt Temp ABG HCO3 ABG Base Excess (Actual) VBG pH VBG pCO2 VBG pO2 VBG HCO3 VBG O2 Saturation VBG Base Excess POC Glucose 325 H 405 H* 275 H 06/14/21 06/14/21 06/14/21 08:54 09:12 11:11 O2 Saturation 76.0 ABG pH at Pt Temp 7.51 H ABG pCO2 at Pt Temp 35 ABG pO2 at Pt Temp 45 L* ABG HCO3 28 H ABG Base Excess (Actual) 5.5 VBG pH 7.41 VBG pCO2 52 VBG pO2 24 VBG HCO3 33 H VBG O2 Saturation < 30.0 VBG Base Excess 7.7 POC Glucose 321 H 06/14/21 15:48 O2 Saturation ABG pH at Pt Temp ABG pCO2 at Pt Temp ABG pO2 at Pt Temp ABG HCO3 ABG Base Excess (Actual) VBG pH VBG pCO2 VBG pO2 VBG HCO3 VBG O2 Saturation VBG Base Excess POC Glucose 318 H Assessment and Plan (1) Acute respiratory distress syndrome (ARDS) due to COVID-19 virus: Status: Acute Plan 80-year-old male with a past medical history of hypertension, hyperlipidemia, diabetes, BPH, osteoarthritis, generalized anxiety, depression, opiate dependence on Suboxone; presented to the hospital today with a chief complaint of shortness of breath.? ? Noted to have acute hypoxic respiratory failure in the setting of COVID-19 pneumonia.? Admitted for further management.? 1.Acute, severe? hypoxic respiratory failure d/t covid--making no signficant progress, slowly flcatuating sats abg: ph maintained cxr:There is bilateral diffuse airspace disease not appreciably changed. ?still mild sob , sats as above 85-90% range ,Remains on HF O2.? Continue to try to wean as much as possible ?? -Dexametasone (02/13) completed 06/03/21, ?? -completed Baricitinib () ??continue Solumedrol pulse dose 60 q 8hrs. 2.Diabetes: ?? - Lantus/Lispro SS ?? -acceptable control ?? - adjust as indiacted 3.History of anxiety / depression and intermittent delirium ?? - Continue home clonazepam, clonidine, fluoxetine, gabapentin. ?? -Psych consult for med management ?4.History of opiate dependence ? ? -On Suboxone patch at home (not on formulary)--He is on morphine here, pain is controlled. 5. Agitation/confusion likely from hypoxia related delirium consider low dose Psychotropic to control behavior, consider low marcelle seroquel if needed , seems no behaviour issues today. above management discussed with the patient family in detail length by shelbie and myself with healthcare proxy his daughter miss montelongo, as well as Isabel- they both understand and they want patient to be DNR DNI, for now wanted to continue conservative management - if patient condition worsen further please kindly contact daughter miss isaac phone no [phone]. DVT prophylaxis:? Lovenox Quality Stroke Does the patient have a stroke diagnosis?: No VTE Prior VTE?: No VTE Risk Level:: Medical - moderate - high VTE Device Contraindication: Treatment Not Indicated VTE Drug Contraindication: N/A - Med Ordered
[2021-06-14] MEDS: Omeprazole 20 MG CAPSULE.DR PO (17:15)
[2021-06-14] MEDS: Morphine Sulfate 2 MG/ML CARTRIDGE 1 MG IVPUSH ×2 (18:09→22:43)
[2021-06-14 20:10] LABS: Glucose, Whole Blood 272 mg/dL (60-115)
[2021-06-14] MEDS: Insulin Glargine,Hum.rec.anlog 100 UNIT/ML 10 ML VIAL 20 UNIT SUBCUT (21:21)
[2021-06-14] MEDS: Enoxaparin Sodium 40 MG/0.4 ML SYRINGE SUBCUT (21:23)
[2021-06-15] VITALS (11 sets, daily range): BP systolic 93–137; BP diastolic 53–62; PULSE 57–82; RESP 16–28; TEMP 35.9–36.7; O2SAT 84–92
[2021-06-15] MEDS: 0.9 % Sodium Chloride Flush 3 ML SYRINGE IVFLUSH ×4 (01:14→21:48)
[2021-06-15] MEDS: methylPREDNISolone Sod Succ 125 MG/2 ML VIAL 60 MG IVPUSH ×4 (01:14→23:56)
[2021-06-15] MEDS: Omeprazole 20 MG CAPSULE.DR PO ×2 (05:17→16:59)
[2021-06-15] MEDS: Morphine Sulfate 2 MG/ML CARTRIDGE 1 MG IVPUSH ×4 (05:17→18:56)
[2021-06-15 07:35] LABS: Glucose, Whole Blood 184 mg/dL (60-115)
[2021-06-15] MEDS: Gabapentin 300 MG CAPSULE PO ×3 (08:23→21:47)
[2021-06-15] MEDS: Losartan Potassium 50 MG TABLET 100 MG PO (08:23)
[2021-06-15] MEDS: Cholecalciferol (Vitamin D3) 25 MCG TABLET PO (08:24)
[2021-06-15] MEDS: cloNIDine HCL 0.1 MG TABLET PO ×2 (08:24→21:47)
[2021-06-15] MEDS: Multivitamin TABLET 1 TAB PO (08:24)
[2021-06-15] MEDS: Pravastatin Sodium 40 MG TABLET PO (08:24)
[2021-06-15] MEDS: Metoprolol Succinate ER 25 MG TAB.ER.24H PO (08:24)
[2021-06-15] MEDS: Insulin Lispro 100 UNIT/ML 3 ML VIAL SUBCUT ×4 (08:26→21:47)
[2021-06-15] MEDS: Tamsulosin HCL 0.4 MG CAPSULE PO (08:27)
[2021-06-15] MEDS: FLUoxetine HCl 20 MG CAPSULE PO (08:28)
[2021-06-15] MEDS: Silver Sulfadiazine 1 % Cream 20 GM TUBE 1 APPL TOPICAL ×3 (08:36→21:48)
[2021-06-15 11:12] LABS: Glucose, Whole Blood 292 mg/dL (60-115)
--- NOTE | 2021-06-15 11:32 | MHC.CM.PN ---
Per ROUNDS discussion, Patient is not yet medically cleared for dc (IV Solu Medrol, IV Morphine today, high flow O2); Home/resume services is the goal and CM will follow for possible need to adjust the dc plan.
--- NOTE | 2021-06-15 15:19 | HO.PM.IMPN ---
Subjective Subjective Date of Service: 06/15/21 Interval History: acute ? Hypoxemic respiratory failure/covid Review of Systems sob seems similar denies nay cough or fever or chills Physical Exam Vital Signs: Vital Signs: Last Vital Signs Temp 97.7 F 06/15/21 14:56 Pulse 62 06/15/21 14:56 Resp 20 06/15/21 14:56 BP 93/53 L 06/15/21 14:56 Pulse Ox 91 L 06/15/21 14:56 BMI result Body Mass Index 28.3 General: AO X 2, no acute distress Resp:? normal resp effort CVS: S1,S2,RRR GI: +BS, NT, no distention Skin: No rash Neuro:? motor grossly intact Psych: appropriate affect. Objective Data Active Medications Acetaminophen (Acetaminophen 325 Mg Tablet) 650 mg PO Q6H PRN PRN Reason: Pain, Mild (Pain Scale 1-3) Last Admin: 06/08/21 18:09 Dose: 650 mg Documented by: JARRETT Hydrocodone Bitart/Acetaminophen (Hydrocodone Bit/Acetam 10/325 Tablet) 1 tab PO QID PRN PRN Reason: Pain (Scale Score 7-10) Last Admin: 06/15/21 14:02 Dose: 1 tab Documented by: YAZMIN Clonidine HCl (Clonidine Hcl 0.1 Mg Tablet) 0.1 mg PO BID [facility]; Protocol Last Admin: 06/15/21 08:24 Dose: 0.1 mg Documented by: YAZMIN Dextrose (Dextrose 50 % 25 Gm/50 Ml Syringe) 25 gm IVPUSH Q15M PRN; Protocol PRN Reason: per Hypoglycemia Standing Ord. Enoxaparin Sodium (Enoxaparin Sodium 40 Mg/0.4 Ml Syringe) 40 mg SUBCUT Q24H [facility] Last Admin: 06/14/21 21:23 Dose: 40 mg Documented by: JARRETT Fluoxetine HCl (Fluoxetine Hcl 20 Mg Capsule) 20 mg PO DAILY [facility] Last Admin: 06/15/21 08:28 Dose: 20 mg Documented by: YAZMIN Gabapentin (Gabapentin 300 Mg Capsule) 300 mg PO TID [facility] Last Admin: 06/15/21 14:02 Dose: 300 mg Documented by: YAZMIN Glucose (Glucose Gel 15 Gm Gel..Gram.) 15 gm PO Q15M PRN; Protocol PRN Reason: per Hypoglycemia Standing Ord. Hydrochlorothiazide (Hydrochlorothiazide 25 Mg Tablet) 25 mg PO DAILY [facility]; Protocol Last Admin: 06/14/21 08:02 Dose: 25 mg Documented by: MARTINE Insulin Glargine (Insulin Glargine,Hum.Rec.Anlog 100 Unit/Ml 10 Ml Vial) 20 unit SUBCUT BEDTIME [facility] Last Admin: 06/14/21 21:21 Dose: 20 unit Documented by: JARRETT Insulin Human Lispro (Insulin Lispro 100 Unit/Ml 3 Ml Vial) 0 unit SUBCUT QIDACHS [facility]; Protocol Last Admin: 06/15/21 11:41 Dose: 6 unit Documented by: YAZMIN Losartan Potassium (Losartan Potassium 50 Mg Tablet) 100 mg PO DAILY [facility]; Protocol Last Admin: 06/15/21 08:23 Dose: 100 mg Documented by: YAZMIN Melatonin (Melatonin 3 Mg Tablet) 6 mg PO BEDTIME PRN PRN Reason: Insomnia Last Admin: 06/13/21 22:12 Dose: 6 mg Documented by: EMILY Methylprednisolone Sodium Succinate (Methylprednisolone Sod Succ 125 Mg/2 Ml Vial) 60 mg IVPUSH Q8H [facility] Last Admin: 06/15/21 08:27 Dose: 60 mg Documented by: YAZMIN Metoprolol Succinate (Metoprolol Succinate Er 25 Mg Tab.Er.24h) 25 mg PO DAILY [facility]; Protocol Last Admin: 06/15/21 08:24 Dose: 25 mg Documented by: YAZMIN Morphine Sulfate (Morphine Sulfate 2 Mg/Ml Cartridge) 1 mg IVPUSH Q4H PRN; Protocol PRN Reason: Pain, Severe (Pain Scale 7-10) Last Admin: 06/15/21 12:40 Dose: 1 mg Documented by: YAZMIN Multivitamins/Vitamin C (Multivitamin Tablet) 1 tab PO DAILY [facility] Last Admin: 06/15/21 08:24 Dose: 1 tab Documented by: YAZMIN Omeprazole (Omeprazole 20 Mg Capsule.) 20 mg PO BID@0630,1630 [facility] Last Admin: 06/15/21 05:17 Dose: 20 mg Documented by: MOISÉS Pharmacy Consult (Consult Rx Perform Med Rec) 1 each MISCELLANE ONCE PRN PRN Reason: Consult order Pravastatin Sodium (Pravastatin Sodium 40 Mg Tablet) 40 mg PO DAILY [facility] Last Admin: 06/15/21 08:24 Dose: 40 mg Documented by: YAZMIN Prednisone (Prednisone 10 Mg Tablet) 10 mg PO DAILY [facility] Last Admin: 06/14/21 08:02 Dose: 10 mg Documented by: MARTINE Senna (Sennosides 8.6 Mg Tablet) 17.2 mg PO BEDTIME PRN PRN Reason: Constipation Last Admin: 06/08/21 18:08 Dose: 17.2 mg Documented by: JARRETT Silver Sulfadiazine (Silver Sulfadiazine 1 % Cream 20 Gm Tube) 1 appl TOPICAL TID [facility] Last Admin: 06/15/21 08:36 Dose: 1 appl Documented by: YAZMIN Sodium Chloride (0.9 % Sodium Chloride Flush 3 Ml Syringe) 3 ml IVFLUSH QSHIFT [facility] Last Admin: 06/15/21 08:27 Dose: 3 ml Documented by: YAZMIN Tamsulosin HCl (Tamsulosin Hcl 0.4 Mg Capsule) 0.4 mg PO DAILY [facility] Last Admin: 06/15/21 08:27 Dose: 0.4 mg Documented by: YAZMIN Tizanidine HCl (Tizanidine Hcl 4 Mg Tablet) 2 mg PO BID PRN PRN Reason: for muscle spasm Last Admin: 06/08/21 18:09 Dose: 2 mg Documented by: JARRETT Vitamin D (Cholecalciferol (Vitamin D3) 25 Mcg Tablet) 25 mcg PO DAILY [facility] Last Admin: 06/15/21 08:24 Dose: 25 mcg Documented by: YAZMIN Labs CBC & Chem 7: 06/11/21 14:43 06/11/21 14:43 Labs: Laboratory Results - last 24 hr 06/14/21 06/14/21 06/15/21 15:48 19:54 07:26 POC Glucose 318 H 272 H 184 H 06/15/21 11:04 POC Glucose 292 H Assessment and Plan (1) Acute respiratory failure with hypoxia: Status: Acute Plan 80-year-old male with a past medical history of hypertension, hyperlipidemia, diabetes, BPH, osteoarthritis, generalized anxiety, depression, opiate dependence on Suboxone; presented to the hospital today with a chief complaint of shortness of breath.? ? Noted to have acute hypoxic respiratory failure in the setting of COVID-19 pneumonia.? Admitted for further management.? 1.Acute, severe? hypoxic respiratory failure d/t covid--making no signficant progress, slowly flcatuating sats abg: ph maintained cxr:There is bilateral diffuse airspace disease not appreciably changed. ?still mild sob , sats as above 85-90% range ,Remains on HF O2.? Continue to try to wean as much as possible ?? -Dexametasone (02/13) completed 06/03/21, ?? -completed Baricitinib () ??continue Solumedrol pulse dose 60 q 8hrs. 2.Diabetes: ?? - Lantus/Lispro SS ?? -acceptable control ?? - adjust as indiacted 3.History of anxiety / depression and intermittent delirium ?? - Continue home clonazepam, clonidine, fluoxetine, gabapentin. ?? -Psych consult for med management ?4.History of opiate dependence ? ? -On Suboxone patch at home (not on formulary)--He is on morphine here, pain is controlled. 5. Agitation/confusion likely from hypoxia related delirium consider low dose Psychotropic to control behavior, consider low marcelle seroquel if needed , seems no behaviour issues today. ?above management discussed with the patient family in detail length by pulm? and myself with? healthcare proxy his daughter miss montelongo, as well as Isabel- they? both understand and they want patient to be DNR DNI, for now wanted to continue conservative management - if patient condition worsen further please kindly contact daughter miss isaac phone no [phone]. DVT prophylaxis:? [id number] Quality Stroke Does the patient have a stroke diagnosis?: No VTE Prior VTE?: No VTE Risk Level:: Medical - moderate - high VTE Device Contraindication: Treatment Not Indicated VTE Drug Contraindication: N/A - Med Ordered
[2021-06-15 16:23] LABS: Glucose, Whole Blood 291 mg/dL (60-115)
[2021-06-15 19:47] LABS: Glucose, Whole Blood 339 mg/dL (60-115)
--- NOTE | 2021-06-15 20:26 | PC.NURSE ---
Family Visit Grand Children visited today, Daughter Isabel flying in from [place] will visit tomorrow. Oxygenation Pt tend to desats rather quickly with exertion and reluctantly recovers for longer periods. Morphine and side-lying positions has been very beneficial for pt.. Encourage oxygenation between bites of food, as he maintain his sats WNL. Skin care Stage II on bilat buttock' triad applied and Q2h repo with pillow changes from side to side. stage II under nose; pink foam dressing cut to fit and applied to reduce pressure
[2021-06-15] MEDS: Enoxaparin Sodium 40 MG/0.4 ML SYRINGE SUBCUT (21:47)
[2021-06-15] MEDS: Sennosides 8.6 MG TABLET 17.2 MG PO (21:47)
[2021-06-15] MEDS: Insulin Glargine,Hum.rec.anlog 100 UNIT/ML 10 ML VIAL 20 UNIT SUBCUT (21:47)
[2021-06-16] VITALS (15 sets, daily range): BP systolic 94–147; BP diastolic 53–71; PULSE 64–110; RESP 18–22; TEMP 36.1–37.1; O2SAT 70–90; BMI 28.3
--- NOTE | 2021-06-16 | ECG_ITS ---
Test Reason : CP Blood Pressure : / mmHG Vent. 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
[2021-06-16] MEDS: Morphine Sulfate 2 MG/ML CARTRIDGE 1 MG IVPUSH ×2 (01:59→06:00)
[2021-06-16] MEDS: Omeprazole 20 MG CAPSULE.DR PO ×2 (06:00→17:18)
[2021-06-16 07:50] LABS: Glucose, Whole Blood 248 mg/dL (60-115)
[2021-06-16] MEDS: methylPREDNISolone Sod Succ 125 MG/2 ML VIAL 60 MG IVPUSH ×2 (08:53→17:17)
[2021-06-16] MEDS: Insulin Lispro 100 UNIT/ML 3 ML VIAL SUBCUT ×4 (08:53→22:24)
[2021-06-16] MEDS: 0.9 % Sodium Chloride Flush 3 ML SYRINGE IVFLUSH ×2 (08:54→17:18)
[2021-06-16] MEDS: Metoprolol Succinate ER 25 MG TAB.ER.24H PO (08:54)
[2021-06-16] MEDS: Cholecalciferol (Vitamin D3) 25 MCG TABLET PO (08:54)
[2021-06-16] MEDS: Pravastatin Sodium 40 MG TABLET PO (08:54)
[2021-06-16] MEDS: FLUoxetine HCl 20 MG CAPSULE PO (08:54)
[2021-06-16] MEDS: Gabapentin 300 MG CAPSULE PO ×2 (08:54→16:12)
[2021-06-16] MEDS: Tamsulosin HCL 0.4 MG CAPSULE PO (08:54)
[2021-06-16] MEDS: Silver Sulfadiazine 1 % Cream 20 GM TUBE 1 APPL TOPICAL ×3 (08:55→22:25)
[2021-06-16] MEDS: Multivitamin TABLET 1 TAB PO (08:55)
[2021-06-16] MEDS: Morphine Sulfate 4 MG/ML CARTRIDGE 3 MG IVPUSH ×5 (10:12→23:18)
[2021-06-16 11:03] LABS: Glucose, Whole Blood 313 mg/dL (60-115)
[2021-06-16] MEDS: LORazepam 2 MG/ML VIAL 1 MG IVPUSH ×3 (12:52→22:02)
--- NOTE | 2021-06-16 15:15 | HO.PM.IMPN ---
Subjective Subjective Date of Service: 06/16/21 Interval History: continues to require High flow O2. Meds adjusted..comfortable Review of Systems unable to obtain Physical Exam Vital Signs: Vital Signs: Last Vital Signs Temp 97.0 F 06/16/21 11:27 Pulse 92 06/16/21 11:27 Resp 22 H 06/16/21 14:31 BP 114/62 06/16/21 11:27 Pulse Ox 73 L 06/16/21 11:27 BMI result Body Mass Index 28.3 Const: Other: No acute distress Resp: Other: Diminished at bases with scant inspiratory crackles Cardio: Other: -S4/+S1/S2_S3 M/R/G GI: Other: Soft NT/ND +NABS x 4 quads Extrem: Other: no edema bilat Objective Data Active Medications Acetaminophen (Acetaminophen 325 Mg Tablet) 650 mg PO Q6H PRN PRN Reason: Pain, Mild (Pain Scale 1-3) Last Admin: 06/08/21 18:09 Dose: 650 mg Documented by: JARRETT Hydrocodone Bitart/Acetaminophen (Hydrocodone Bit/Acetam 10/325 Tablet) 1 tab PO QID PRN PRN Reason: Pain (Scale Score 7-10) Last Admin: 06/15/21 21:48 Dose: 1 tab Documented by: KAYLEN Clonidine HCl (Clonidine Hcl 0.1 Mg Tablet) 0.1 mg PO BID [facility]; Protocol Last Admin: 06/15/21 21:47 Dose: 0.1 mg Documented by: KAYLEN Dextrose (Dextrose 50 % 25 Gm/50 Ml Syringe) 25 gm IVPUSH Q15M PRN; Protocol PRN Reason: per Hypoglycemia Standing Ord. Enoxaparin Sodium (Enoxaparin Sodium 40 Mg/0.4 Ml Syringe) 40 mg SUBCUT Q24H [facility] Last Admin: 06/15/21 21:47 Dose: 40 mg Documented by: KAYLEN Fluoxetine HCl (Fluoxetine Hcl 20 Mg Capsule) 20 mg PO DAILY [facility] Last Admin: 06/16/21 08:54 Dose: 20 mg Documented by: CHIKIS Gabapentin (Gabapentin 300 Mg Capsule) 300 mg PO TID [facility] Last Admin: 06/16/21 08:54 Dose: 300 mg Documented by: CHIKIS Glucose (Glucose Gel 15 Gm Gel..Gram.) 15 gm PO Q15M PRN; Protocol PRN Reason: per Hypoglycemia Standing Ord. Hydrochlorothiazide (Hydrochlorothiazide 25 Mg Tablet) 25 mg PO DAILY [facility]; Protocol Last Admin: 06/14/21 08:02 Dose: 25 mg Documented by: MARTINE Insulin Glargine (Insulin Glargine,Hum.Rec.Anlog 100 Unit/Ml 10 Ml Vial) 20 unit SUBCUT BEDTIME [facility] Last Admin: 06/15/21 21:47 Dose: 20 unit Documented by: JOSELUISOC Insulin Human Lispro (Insulin Lispro 100 Unit/Ml 3 Ml Vial) 0 unit SUBCUT QIDACHS [facility]; Protocol Last Admin: 06/16/21 11:41 Dose: 8 unit Documented by: CHIKIS Lorazepam (Lorazepam 2 Mg/Ml Vial) 1 mg IVPUSH Q4H PRN PRN Reason: Anxiety Last Admin: 06/16/21 12:52 Dose: 1 mg Documented by: CHIKIS Losartan Potassium (Losartan Potassium 50 Mg Tablet) 100 mg PO DAILY [facility]; Protocol Last Admin: 06/15/21 08:23 Dose: 100 mg Documented by: YAZMIN Melatonin (Melatonin 3 Mg Tablet) 6 mg PO BEDTIME PRN PRN Reason: Insomnia Last Admin: 06/13/21 22:12 Dose: 6 mg Documented by: EMILY Methylprednisolone Sodium Succinate (Methylprednisolone Sod Succ 125 Mg/2 Ml Vial) 60 mg IVPUSH Q8H [facility] Last Admin: 06/16/21 08:53 Dose: 60 mg Documented by: CHIKIS Metoprolol Succinate (Metoprolol Succinate Er 25 Mg Tab.Er.24h) 25 mg PO DAILY [facility]; Protocol Last Admin: 06/16/21 08:54 Dose: 25 mg Documented by: CHIKIS Morphine Sulfate (Morphine Sulfate 4 Mg/Ml Cartridge) 3 mg IVPUSH Q3H PRN; Protocol PRN Reason: resp distress/pain Last Admin: 06/16/21 13:33 Dose: 3 mg Documented by: CHIKIS Multivitamins/Vitamin C (Multivitamin Tablet) 1 tab PO DAILY [facility] Last Admin: 06/16/21 08:55 Dose: 1 tab Documented by: CHIKIS Omeprazole (Omeprazole 20 Mg Demetrio.) 20 mg PO BID@0630,1630 [facility] Last Admin: 06/16/21 06:00 Dose: 20 mg Documented by: KAYLEN Pharmacy Consult (Consult Rx Perform Med Rec) 1 each MISCELLANE ONCE PRN PRN Reason: Consult order Pravastatin Sodium (Pravastatin Sodium 40 Mg Tablet) 40 mg PO DAILY [facility] Last Admin: 06/16/21 08:54 Dose: 40 mg Documented by: CHIKIS Prednisone (Prednisone 10 Mg Tablet) 10 mg PO DAILY [facility] Last Admin: 06/14/21 08:02 Dose: 10 mg Documented by: MARTINE Senna (Sennosides 8.6 Mg Tablet) 17.2 mg PO BEDTIME PRN PRN Reason: Constipation Last Admin: 06/15/21 21:47 Dose: 17.2 mg Documented by: KAYLEN Silver Sulfadiazine (Silver Sulfadiazine 1 % Cream 20 Gm Tube) 1 appl TOPICAL TID [facility] Last Admin: 06/16/21 08:55 Dose: 1 appl Documented by: CHIKIS Sodium Chloride (0.9 % Sodium Chloride Flush 3 Ml Syringe) 3 ml IVFLUSH QSHIFT [facility] Last Admin: 06/16/21 08:54 Dose: 3 ml Documented by: CHIKIS Tamsulosin HCl (Tamsulosin Hcl 0.4 Mg Capsule) 0.4 mg PO DAILY [facility] Last Admin: 06/16/21 08:54 Dose: 0.4 mg Documented by: CHIKIS Tizanidine HCl (Tizanidine Hcl 4 Mg Tablet) 2 mg PO BID PRN PRN Reason: for muscle spasm Last Admin: 06/08/21 18:09 Dose: 2 mg Documented by: JARRETT Vitamin D (Cholecalciferol (Vitamin D3) 25 Mcg Tablet) 25 mcg PO DAILY [facility] Last Admin: 06/16/21 08:54 Dose: 25 mcg Documented by: CHIKIS Labs CBC & Chem 7: 06/11/21 14:43 06/11/21 14:43 Labs: Laboratory Results - last 24 hr 06/15/21 06/15/21 06/16/21 16:05 19:32 07:44 POC Glucose 291 H 339 H 248 H 06/16/21 10:56 POC Glucose 313 H Assessment and Plan (1) Acute respiratory distress syndrome (ARDS) due to COVID-19 virus: Status: Acute (2) DMII (diabetes mellitus, type 2): Status: Acute (3) HTN (hypertension): Status: Acute Plan 80-year-old male with a past medical history of hypertension, hyperlipidemia, diabetes, BPH, osteoarthritis, generalized anxiety, depression, opiate dependence on Suboxone; presented to the hospital today with a chief complaint of shortness of breath.? ? Noted to have acute hypoxic respiratory failure in the setting of COVID-19 pneumonia.? Admitted for further management.? 1.Acute, severe hypoxic respiratory failure - Remains on HF O2. Essentially no change -Dexametasone (02/13) completed 06/03/21...Solumedrol pulse dose 60 q 8hrs -Baricitinib () - Now DNR/DNI...sats in high 60's/70's. 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 4.History of opiate dependence -On Suboxone. ? addiction Medicine following DVT prophylaxis:? Lovenox Code status:? Full Code Quality Stroke Does the patient have a stroke diagnosis?: No VTE Prior VTE?: No VTE Risk Level:: Medical - moderate - high VTE Device Contraindication: Treatment Not Indicated VTE Drug Contraindication: N/A - Med Ordered
[2021-06-16 16:44] LABS: Glucose, Whole Blood 246 mg/dL (60-115)
[2021-06-16] MEDS: Haloperidol Lactate 5 MG/ML VIAL IVPUSH (19:08)
[2021-06-16 20:39] LABS: Glucose, Whole Blood 262 mg/dL (60-115)
[2021-06-16] MEDS: Insulin Glargine,Hum.rec.anlog 100 UNIT/ML 10 ML VIAL 20 UNIT SUBCUT (22:25)
[2021-06-16] MEDS: Enoxaparin Sodium 40 MG/0.4 ML SYRINGE SUBCUT (22:25)
[2021-06-17] VITALS (10 sets, daily range): BP systolic 86–90; BP diastolic 52–53; PULSE 65–98; RESP 12–22; TEMP 36.3–36.5; O2SAT 70–79
[2021-06-17] MEDS: methylPREDNISolone Sod Succ 125 MG/2 ML VIAL 60 MG IVPUSH ×2 (01:28→08:19)
[2021-06-17] MEDS: LORazepam 2 MG/ML VIAL 1 MG IVPUSH ×2 (02:05→08:18)
[2021-06-17] MEDS: Morphine Sulfate 4 MG/ML CARTRIDGE 3 MG IVPUSH ×2 (02:53→05:54)
[2021-06-17] MEDS: 0.9 % Sodium Chloride Flush 3 ML SYRINGE IVFLUSH ×2 (06:17→08:19)
[2021-06-17 06:55] LABS: Glucose, Whole Blood 203 mg/dL (60-115)
--- NOTE | 2021-06-17 07:23 | PC.NURSE ---
Gave update last night to HCP/daughter Pat and daughter Isabel. Overnight pt was increasingly lethargic. Alert often, restless, does not reply to questions or follow commands. Moving all extremities, but non-purposefully. Frequently restless and pulling at high flow and non-rebreather. 1:1 sitter at bedside for pt safety. Pt maxed out on HF 55L 100% and NRB. O2 sat maintained 70-80%, desatted further with repositioning. HR 80-90, sinus rhythm. BP soft. MD made aware. Gave PRN Morphine and PRN Ativan for respiratory distress and restlessness. Held PO meds, as pt is unsafe to swallow at this time. Pt on tele monitor and continuous O2 monitor.
[2021-06-17] MEDS: Insulin Lispro 100 UNIT/ML 3 ML VIAL SUBCUT (08:19)
[2021-06-17] MEDS: Silver Sulfadiazine 1 % Cream 20 GM TUBE 1 APPL TOPICAL (08:20)
[2021-06-17] MEDS: Morphine Sulfate 4 MG/ML CARTRIDGE IVPUSH (11:43)
[2021-06-17] MEDS: LORazepam 2 MG/ML VIAL IVPUSH (11:43)
--- NOTE | 2021-06-17 11:43 | MHC.CM.PN ---
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 Home/resume services has been the goal for dc and CM will continue to follow for possible need to adjust the dc plan.
[2021-06-17] MEDS: Morphine Sulfate/NS 100 MG/100 ML PLAST..BAG IVCONT (11:53)
--- NOTE | 2021-06-17 13:05 | MHC.CLN ---
F/U PT IS AT NUTRITION RISK R/T PRESSURE INJURIES DIET RX: 2200DM-APPROPRIATE PT RECEIVING GLUCERNA TID SUPP PROVIDES 711KCALS, 30G PROTEIN MONITOR PO INTAKE CLOSELY
--- NOTE | 2021-06-17 14:50 | PM.DS ---
DS: Providers Provider Date of Service: 06/17/21 Date of admission: 05/24/21 21:19 Primary care physician: Evaristo Sales PA-C Consults: 05/24/21 21:22 Consult to Infectious Diseases Routine Consulting Provider: Becca Sauceda Reason for consultation: COVID PNA Consult to Pulmonology Routine Consulting Provider: Bronwyn Driscoll Reason for consultation: Acute hypoxia; COVID PNA 05/24/21 21:30 Addiction Medicine Routine Consulting Provider: Isabel Davis Reason for consultation: Opiate dependence. 05/25/21 08:18 Consult to Pulmonology Routine Consulting Provider: Wilver Martin Reason for consultation: covid on high flow, need baricitinib 06/14/21 08:29 Consult to Pulmonology Routine Consulting Provider: Dipak Marinelli Reason for consultation: acute repiratory failure /pneumonia Has provider been notified: No DS: Diagnosis Discharge Diagnosis (1) Acute respiratory distress syndrome (ARDS) due to COVID-19 virus: Status: Acute (2) DMII (diabetes mellitus, type 2): Status: Acute (3) HTN (hypertension): Status: Acute DS: Summary Hospital Course Hospital Course: 81yoM admitted 05/24/21. Received/completed standard Covid-19 therapies. Despite these therapies; he continued to require HFO2... over last week, O2 sats continued to decline. Given poor prognosis, pt's family changed status to DNR/DNI. Today, sat in 60's. 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 Pt was placed on MSO4 drip and peacefully with family at bedside Time Spent with Patient Time attestation: Total time spent providing and/or coordinating discharge services: Discharge coordination time: Greater than 30 minutes Quality: Stroke Does the patient have a stroke diagnosis?: No Physical Exam Vital Signs: Vital Signs: Last Vital Signs Temp 97.7 F 06/17/21 07:03 Pulse 81 06/17/21 11:53 Resp 12 06/17/21 11:53 BP 86/52 L 06/17/21 11:53 Pulse Ox 75 L 06/17/21 11:53 BMI result Body Mass Index 28.3 DS: Data Data Completed and Pending Labs on day of discharge: Laboratory Results - last 24 hr 06/16/21 06/16/21 06/17/21 16:29 20:22 06:51 POC Glucose 246 H 262 H 203 H Discharge Plan Discharge Patient Disposition: Referrals: Evaristo Sales PA-C [Primary Care Provider] - 1 Week Discharge Medications: No Action multivitamin Tablet 1 tab PO DAILY 90 Days Qty: 90 3RF (DME) pen needle, diabetic [BD Agueda 2nd Gen Pen Needle] 32 gauge x 5/32 needle See Rx Instructions .ROUTE .MEDSUPPLY Qty: 100 3RF Rx Instructions: As directed tamsulosin 0.4 mg capsule 0.4 mg PO DAILY 90 Days Qty: 90 2RF hydrochlorothiazide 25 mg tablet 25 mg PO DAILY Qty: 90 2RF (DME) FreeStyle Test Strip See Rx Instructions .Route Qty: 100 3RF Rx Instructions: As directed fluoxetine 20 mg capsule 20 mg PO QAM Qty: 90 2RF clonazepam 1 mg tablet 1 mg PO BID 30 Days Qty: 60 2RF metoprolol succinate 25 mg tablet extended release 24 hr 25 mg PO DAILY 90 Days Qty: 90 1RF Rx Instructions: reducing dose of BBlocker due to bradycardia clonidine HCl 0.1 mg tablet 0.1 mg PO BID 30 Days Qty: 60 0RF Rx Instructions: Need appt for refills losartan 100 mg tablet 100 mg PO DAILY Qty: 90 2RF tizanidine 2 mg tablet 2 mg PO BID PRN (Reason: for muscle spasm) 90 Days Qty: 180 1RF pravastatin 40 mg tablet 40 mg PO DAILY Qty: 90 3RF Tresiba FlexTouch U-200 200 unit/mL (3 mL) insulin pen 35 unit subcut DAILY 30 Days Qty: 9 2RF Jardiance 25 mg tablet 25 mg PO DAILY Qty: 90 2RF prednisone 10 mg tablet 10 mg PO DAILY 6 Days Qty: 12 0RF Rx Instructions: Take 3 tabs x2 days, 2 tabs x2 days, 1 tab x2 days dexamethasone 2 mg tablet 2 mg PO DAILY 7 Days Qty: 7 0RF silver sulfadiazine 1 % cream 1 appl topical TID 0RF hydrocodone-acetaminophen 10-325 mg tablet 1 tab PO QID PRN (Reason: Pain (Scale Score 7-10)) 0RF cholecalciferol (vitamin D3) [Vitamin D3] 25 mcg (1,000 unit) Tablet 25 mcg PO DAILY 0RF metformin 1,000 mg tablet 1,000 mg PO BIDWM 0RF gabapentin 300 mg capsule 300 mg PO TID 0RF buprenorphine [Butrans] 15 mcg/hour patch weekly 1 patch transdermal Q7D 28 Days Qty: 4 0RF Rx Instructions: Pain control
--- NOTE | 2021-06-17 15:13 | PM.EVENT ---
Event Note Date of Service: 06/17/21 Event Note: Called to see pt secondary to apnea/unresponsiveness. No spontaneous respirations noted. No audible HS. Pronounced at 13:12
--- NOTE | 2021-06-17 17:05 | PC.NURSE ---
Called patient's daughter Isabel to find out the name of home and was told that they have not made a decision yet.
== END 2021-06-17 17:00 | disposition expired | DRG 177 ==
LOC: HO.ED 21:24 → HO.EDOVER 21:33 → HO.IMC 05-26 14:14
PROVIDERS: Internal Medicine; Admitting Provider Hospitalist; Emergency Provider Emergency Medicine; PCP Physician Assistant; Visit Provider Hospitalist
DX: U07.1 COVID-19 (principal); J12.82 Pneumonia due to coronavirus disease 2019; J80 Acute respiratory distress syndrome; F05 Delirium due to known physiological condition; I10 Essential (primary) hypertension; E78.5 Hyperlipidemia, unspecified; N40.0 Benign prostatic hyperplasia without lower urinary tract symptoms; E11.9 Type 2 diabetes mellitus without complications; F41.1 Generalized anxiety disorder; Z79.4 Long term (current) use of insulin; Z79.84 Long term (current) use of oral hypoglycemic drugs; Z79.891 Long term (current) use of opiate analgesic; Z79.899 Other long term (current) drug therapy; Z66 Do not resuscitate; Z51.5 Encounter for palliative care
CPT/HCPCS: 36415; 36600; 71045; 71275; 72020; 80048; 80053; 80076; 82803; 82947; 83605; 83880; 84484; 85025; 85027; 85379; 86140; 87040; 87635; 93005; 94799; 96365; 96367; 96375; 99285; J0456; J0696; J1100; J1650; J2060; J2270; J2930; Q0163; Q9957; Q9967